=== PATIENT | female | born 1975 | race American Indian/Alaskan Native ===

== ENCOUNTER 2017-06-18 11:30 | Emergency (ER) | payer MEDICAID, OTHER ==
[2017-06-18 12:14] LABS: Basophils % (Auto) 0.5 % (0.0-1.8); Hematocrit 37.7 % (30.3-42.9); Hemoglobin 12.9 gm/dl (10.1-14.3); Mean Corpuscular HGB Conc 34 % (30-34); Mean Corpuscular Hemoglobin 29 pg (28-32); Mean Corpuscular Volume 85 fl (79-97); Platelet Count 286 K/mm3 (140-440); Red Blood Count 4.43 M/mm3 (3.65-5.03); Red Cell Distribution Width 13.1 % (13.2-15.2); White Blood Count 10.9 K/mm3 (4.5-11.0)
[2017-06-18 12:29] LABS: Alanine Aminotransferase 10 units/L (7-56); Albumin 4.2 g/dL (3.9-5); Albumin/Globulin Ratio 1.4 %; Alkaline Phosphatase 77 units/L (35-129); Anion Gap 18 mmol/L; Blood Urea Nitrogen 9 mg/dL (7-17); Calcium 8.3 mg/dL (8.4-10.2); Carbon Dioxide 27 mmol/L (22-30); Chloride 98.8 mmol/L (98-107); Glucose 104 mg/dL (65-100); Lipase 51 units/L (13-60); Potassium 3.3 mmol/L (3.6-5.0); Sodium 140 mmol/L (137-145); Total Protein 7.2 g/dL (6.3-8.2)
[2017-06-18 12:48] LABS: Bacteria,Urine 1+ /HPF (Negative); Bilirubin,Urine NEG (Negative); Blood,Urine SM (Negative); Ketones,Urine NEG (Negative); Leukocyte Esterase,Urine SM (Negative); Mucus,Urine FEW /HPF; Nitrite,Urine NEG (Negative); Protein,Urine <15 mg/dL mg/dL (Negative); Urobilinogen,Urine < 2.0 mg/dL (<2.0)
[2017-06-18] MEDS ORDERED: MOTRIN PO ONE (17:39)
[2017-06-18] MEDS ORDERED: BACTRIM DS ONE (17:44)
[2017-06-18] MEDS ORDERED: BACTRIM DS PO ONE (17:51)
[2017-06-18 18:13] VITALS: BP 164/107
--- NOTE | 2017-06-18 21:15 | Emergency Department Report ---
Entered by SYDNI LEONARD, acting as scribe for LONI GLOVER PA. ED Abdominal Pain HPI - General Chief Complaint: Abdominal Pain Stated Complaint: ABD PAIN Time Seen by Provider: 06/18/17 17:34 Source: patient Mode of arrival: Ambulatory Limitations: No Limitations - History of Present Illness Initial Comments: 41 y/o female with a PMHx of CHF, NIDDM, HTN, hypothyroisim, and high cholesterol presents to the ED c/o left lower abdominal pain that began 2 days ago. Describes pain as sharp and throbbing in quality. Aggravated with movement and alleviated with nothing. Patient states the pain intermittently radiates to her left lower back. Notes her bowel movement have been loose lately. Denies dysuria, urgency, frequency, nausea, vomiting, vaginal discharge, vaginal bleeding, fever, and chills. LMP 06/11/2017. NKDA. MERRILL Complaint: abdominal pain Onset/Timin -: days(s) Location: LLQ Radiation: back (left lower) Migration to: no migration Severity: moderate Severity scale (0 -10): 6 Quality: sharp, other (throbbing) Consistency: constant Improves With: movement Worsens With: nothing Associated Symptoms: denies other symptoms. denies: nausea, vomiting, diarrhea , fever, chills, constipation, dysuria, hematemesis, hematochezia, melena, hematuria, syncope - Related Data LMP Date: 06/11/17 LMP (females 10-50): last week Home Medications Medication Instructions Recorded Confirmed Last Taken Carvedilol [Carvedilol] 6.25 mg PO BID 06/30/16 06/30/16 06/30/16 Furosemide [Furosemide] 40 mg PO DAILY 06/30/16 06/30/16 06/30/16 Gabapentin [Gabapentin] 300 mg PO TID 06/30/16 06/30/16 06/20/16 Levothyroxine [Synthroid] 137 mcg PO QAM 06/30/16 06/30/16 06/30/16 Lisinopril [Lisinopril] 20 mg PO DAILY 06/30/16 06/30/16 06/30/16 Tramadol HCl [traMADol] 50 mg PO Q6H PRN 06/30/16 06/30/16 06/20/16 Previous Rx's Medication Instructions Recorded Last Taken Type Ibuprofen [Motrin] 800 mg PO Q8HR PRN #30 tablet 06/18/17 Unknown Rx Sulfamethoxazole/Trimethoprim 1 each PO BID #14 tablet 06/18/17 Unknown Rx [Bactrim DS TAB] traMADol [Ultram 50 MG tab] 50 mg PO Q6HR PRN #24 tablet 06/18/17 Unknown Rx Allergies Allergy/AdvReac Type Severity Reaction Status Date / Time No Known Allergies Allergy Unverified 06/22/15 09:13 ED Review of Systems Comment: All other systems reviewed and negative Constitutional: denies: chills, diaphoresis, fever, malaise, weakness Eyes: denies: eye pain, eye discharge, vision change ENT: denies: ear pain, throat pain Respiratory: denies: cough, orthopnea, shortness of breath, SOB with exertion, SOB at rest, stridor, wheezing Cardiovascular: denies: chest pain, palpitations, dyspnea on exertion, orthopnea , edema, syncope, paroxysmal nocturnal dyspnea Endocrine: no symptoms reported Gastrointestinal: abdominal pain (LLQ). denies: nausea, vomiting, diarrhea Genitourinary: denies: urgency, dysuria, frequency, hematuria, discharge Musculoskeletal: back pain (radiated left low back pain). denies: joint swelling, arthralgia Skin: denies: rash, lesions Neurological: denies: headache, weakness, numbness, paresthesias Hematological/Lymphatic: denies: easy bleeding, easy bruising ED Past Medical Hx - Past Medical History Previous Medical History?: Yes Hx Hypertension: Yes Hx Congestive Heart Failure: Yes Hx Diabetes: Yes (type II) Additional medical history: hypothyroid, high cholesterol, low potassium - Surgical History Past Surgical History?: Yes Hx Cholecystectomy: Yes Additional Surgical History: C-sections, thyroidectomy - Social History Smoking Status: Never Smoker Substance Use Type: Alcohol - Medications Home Medications: Home Medications Medication Instructions Recorded Confirmed Last Taken Type Carvedilol [Carvedilol] 6.25 mg PO BID 06/30/16 06/30/16 06/30/16 History Furosemide [Furosemide] 40 mg PO DAILY 06/30/16 06/30/16 06/30/16 History Gabapentin [Gabapentin] 300 mg PO TID 06/30/16 06/30/16 06/20/16 History Levothyroxine [Synthroid] 137 mcg PO QAM 06/30/16 06/30/16 06/30/16 History Lisinopril [Lisinopril] 20 mg PO DAILY 06/30/16 06/30/16 06/30/16 History Tramadol HCl [traMADol] 50 mg PO Q6H PRN 06/30/16 06/30/16 06/20/16 History Ibuprofen [Motrin] 800 mg PO Q8HR PRN #30 tablet 06/18/17 Unknown Rx Sulfamethoxazole/Trimethoprim 1 each PO BID #14 tablet 06/18/17 Unknown Rx [Bactrim DS TAB] traMADol [Ultram 50 MG tab] 50 mg PO Q6HR PRN #24 tablet 06/18/17 Unknown Rx ED Physical Exam - General Limitations: No Limitations General appearance: alert, in no apparent distress - Head Head exam: Present: atraumatic, normocephalic - Eye Eye exam: Present: normal appearance, PERRL, EOMI Pupils: Present: normal accommodation - ENT ENT exam: Present: normal exam, mucous membranes moist, normal external ear exam - Neck Neck exam: Present: normal inspection, full ROM. Absent: tenderness, meningismus, lymphadenopathy - Respiratory Respiratory exam: Present: normal lung sounds bilaterally. Absent: respiratory distress, wheezes, rales, rhonchi, stridor, accessory muscle use, decreased breath sounds - Cardiovascular Cardiovascular Exam: Present: regular rate, normal rhythm, normal heart sounds. Absent: systolic murmur, diastolic murmur, rubs, gallop - GI/Abdominal GI/Abdominal exam: Present: soft, tenderness (mild LLQ), normal bowel sounds. Absent: distended, guarding, rebound, rigid, organomegaly, mass, bruit, pulsatile mass - Expanded GI/Abdominal Exam Expanded GI/Abdominal exam: Absent: Ochoa's sign, Rovsing's sign, tenderness at Mcburney 's Point - Extremities Exam Extremities exam: Present: normal inspection, full ROM - Back Exam Back exam: Present: normal inspection, full ROM. Absent: CVA tenderness (R), CVA tenderness (L) - Neurological Exam Neurological exam: Present: alert, oriented X3, normal gait - Psychiatric Psychiatric exam: Present: normal affect, normal mood - Skin Skin exam: Present: warm, dry, intact. Absent: rash ED Course Vital Signs 06/18/17 11:42 Temperature 98.4 F Pulse Rate 82 Respiratory 16 Rate Blood Pressure 144/93 O2 Sat by Pulse 99 Oximetry ED Medical Decision Making - Lab Data Result diagrams: 06/18/17 11:57 06/18/17 11:57 - Medical Decision Making 41 year-old female presents with urinary tract infection ED course: Patient received 1 dose of Bactrim and 1 dose of Motrin. Urinalysis , CBC, BMP, test so ordered Urinalysis positive for bacteria, CBC within normal limits, BMP within normal limits, test negative. Discussed this findings with patient. Discussed the patient antibiotics medication as prescribed. Discussed the patient to follow instructions as given and follow-up with primary care physician as referred. Discuss her symptoms return or worsen to return to the ED Vital signs are normal, patient is in no acute distress ED Disposition Clinical Impression: UTI (urinary tract infection) Qualifiers: Urinary tract infection type: acute cystitis Hematuria presence: without hematuria Qualified Code(s): N30.00 - Acute cystitis without hematuria Disposition: TO HOME OR SELFCARE Is pt being admited?: No Does the pt Need Aspirin: No Condition: Stable Instructions: Abdominal Pain (ED), Urinary Tract Infection in Women (ED) Prescriptions: Ibuprofen [Motrin] 800 mg PO Q8HR PRN #30 tablet PRN Reason: Pain Sulfamethoxazole/Trimethoprim [Bactrim DS TAB] 1 each PO BID #14 tablet traMADol [Ultram 50 MG tab] 50 mg PO Q6HR PRN #24 tablet PRN Reason: Pain Referrals: PRIMARY CAREMD [Primary Care Provider] - 3-5 Days ARMAND VERAS MD [Referring] - 3-5 Days [facility] [Outside] - 3-5 Days [facility] [Outside] - 3-5 Days Forms: Accompanied Note, Work/School Release Form(ED) Time of Disposition: 17:55 This documentation as recorded by the AISHA friedman JASMINE,accurately reflects the service I personally performed and the decisions made by ADALBERTO cross OYINLOLA A, PA.
[2017-06-18] MEDS ORDERED: BACTRIM DS PO SCH (22:00)
== END 2017-06-18 18:13 | disposition home or self-care (01) ==
LOC: ED 11:30
DX: N30.00 Acute cystitis without hematuria (principal); I10 Essential (primary) hypertension; E11.9 Type 2 diabetes mellitus without complications; E78.00 Pure hypercholesterolemia, unspecified
CPT/HCPCS: 36415; 80053; 81001; 81025; 83690; 85025; 99283

== ENCOUNTER 2018-06-08 07:36 | Inpatient (IN) | payer OTHER ==
[2018-06-08] MEDS ORDERED: NACL 0.9% 1000 ML 1,000 ML IV ONE (07:52)
[2018-06-08 08:18] LABS: Basophils # (Auto) 0.1 K/mm3 (0.0-0.1); Basophils % (Auto) 0.4 % (0.0-1.8); Eosinophils # (Auto) 0.2 K/mm3 (0.0-0.4); Eosinophils % (Auto) 1.1 % (0.0-4.3); Hematocrit 32.3 % (30.3-42.9); Hemoglobin 11.3 gm/dl (10.1-14.3); Lymphocytes # (Auto) 2.9 K/mm3 (1.2-5.4); Lymphocytes % (Auto) 21.8 % (13.4-35.0); Mean Corpuscular HGB Conc 35 % (30-34); Mean Corpuscular Hemoglobin 30 pg (28-32); Mean Corpuscular Volume 87 fl (79-97); Monocytes # (Auto) 0.8 K/mm3 (0.0-0.8); Monocytes % (Auto) 6.1 % (0.0-7.3); Platelet Count 260 K/mm3 (140-440); Red Blood Count 3.72 M/mm3 (3.65-5.03); Red Cell Distribution Width 12.9 % (13.2-15.2)
[2018-06-08 08:29] LABS: INR 1.02 (0.87-1.13)
[2018-06-08 08:35] LABS: Alanine Aminotransferase 6 units/L (7-56); Albumin 3.3 g/dL (3.9-5); BUN/Creatinine Ratio 16; Blood Urea Nitrogen 11 mg/dL (7-17); Calcium 7.6 mg/dL (8.4-10.2); Hemolysis Index 12
--- NOTE | 2018-06-08 08:36 | Emergency Department Report ---
ED GI Bleed HPI - General Chief complaint: GI Bleed Stated complaint: ABD PAIN/GI BLEED Time Seen by Provider: 06/08/18 08:14 Source: patient, EMS Mode of arrival: Stretcher Limitations: No Limitations - History of Present Illness Initial comments: 42-year-old female the past medical history CHF with a last known EF of 35% (as per pt), diabetes type 2, hypertension, hypothyroidism, low potassium, elevated cholesterol, previously cholecystectomy and presents to the hospital complaining of rectal bleeding this a.m. Patient had generalized intermittent crampy abdominal pain it is moderate in intensity. She had greater than 6 episodes of grossly bloody stool with clots. Patient felt lightheaded at home and had a syncopal episode in route to hospital. Initial heart rate of 121 as per EMS. Patient received normal saline approximately 500 mL with improvement in heart upon arrival and sbp greater than 100. She denies previous history of GI bleed, hemorrhoids, previous colonoscopy, family or personal history of intestinal cancer, recent travel out of the country in the last 2 months, or aspirin and anticoagulants use. Family brought in a 32 ounce food container that as aprox one quarter filled with blood patient states she had additional output in the toilet and on the floor prior to arrival. [employer]) Patient does have a history of low potassium and takes potassium supplements. She does not know the cause of her hypokalemia but denies history of renal issues/cause and she does take Lasix. - Related Data Home Medications Medication Instructions Recorded Confirmed Last Taken Carvedilol 6.25 mg PO BID 06/30/16 06/30/16 06/30/16 Furosemide 40 mg PO DAILY 06/30/16 06/30/16 06/30/16 Gabapentin 300 mg PO TID 06/30/16 06/30/16 06/20/16 Levothyroxine [Synthroid] 137 mcg PO QAM 06/30/16 06/30/16 06/30/16 Lisinopril 20 mg PO DAILY 06/30/16 06/30/16 06/30/16 Tramadol HCl [traMADol] 50 mg PO Q6H PRN 06/30/16 06/30/16 06/20/16 Previous Rx's Medication Instructions Recorded Last Taken Type Ibuprofen [Motrin] 800 mg PO Q8HR PRN #30 tablet 06/18/17 Unknown Rx Sulfamethoxazole/Trimethoprim 1 each PO BID #14 tablet 06/18/17 Unknown Rx [Bactrim DS TAB] traMADol [Ultram 50 MG tab] 50 mg PO Q6HR PRN #24 tablet 06/18/17 Unknown Rx Allergies Allergy/AdvReac Type Severity Reaction Status Date / Time No Known Allergies Allergy Unverified 06/22/15 09:13 ED Review of Systems ROS: Stated complaint: ABD PAIN/GI BLEED Other details as noted in HPI Comment: All other systems reviewed and negative ED Past Medical Hx - Past Medical History Hx Hypertension: Yes Hx Congestive Heart Failure: Yes Hx Diabetes: Yes (type II) Additional medical history: hypothyroid, high cholesterol, low potassium - Surgical History Hx Cholecystectomy: Yes Additional Surgical History: C-sections, thyroidectomy - Social History Smoking Status: Never Smoker Substance Use Type: None - Medications Home Medications: Home Medications Medication Instructions Recorded Confirmed Last Taken Type Carvedilol 6.25 mg PO BID 06/30/16 06/30/16 06/30/16 History Furosemide 40 mg PO DAILY 06/30/16 06/30/16 06/30/16 History Gabapentin 300 mg PO TID 06/30/16 06/30/16 06/20/16 History Levothyroxine [Synthroid] 137 mcg PO QAM 06/30/16 06/30/16 06/30/16 History Lisinopril 20 mg PO DAILY 06/30/16 06/30/16 06/30/16 History Tramadol HCl [traMADol] 50 mg PO Q6H PRN 06/30/16 06/30/16 06/20/16 History Ibuprofen [Motrin] 800 mg PO Q8HR PRN #30 tablet 06/18/17 Unknown Rx Sulfamethoxazole/Trimethoprim 1 each PO BID #14 tablet 06/18/17 Unknown Rx [Bactrim DS TAB] traMADol [Ultram 50 MG tab] 50 mg PO Q6HR PRN #24 tablet 06/18/17 Unknown Rx ED Physical Exam - General Limitations: No Limitations - Other Other exam information: General: No limitations, patient is alert in no acute distress Head exam: Atraumatic, normocephalic Eyes exam: Normal appearance ENT: Moist mucous membrane, normal oropharynx Neck exam: Normal inspection, full range of motion Respiratory exam: Clear to auscultation bilateral, no wheezes, rales, crackles Cardiovascular: Normal rate and rhythm, normal heart sounds Abdomen: Soft, nondistended, lower and midabdominal tenderness, with normal bowel sounds, no rebound, or guarding Rectal: No external hemorrhoids, guaiac positive grossly bloody stool Extremity: Full range of motion normal inspection no deformity Back: Normal Inspection, full range of motion, no tenderness Neurologic: Alert, oriented x3, cranial nerves intact, no motor or sensory deficit Psychiatric: normal affect, normal mood Skin: Warm, dry, intact ED Course Vital Signs 06/08/18 06/08/18 06/08/18 07:43 07:44 08:00 Temperature 97.9 F Pulse Rate 93 H 91 H Respiratory 17 12 Rate Blood Pressure 121/71 121/71 O2 Sat by Pulse 98 98 99 Oximetry 06/08/18 06/08/18 08:30 09:00 Temperature Pulse Rate 93 H 96 H Respiratory 12 11 L Rate Blood Pressure 109/82 118/87 O2 Sat by Pulse 99 97 Oximetry - Consultations Consultation #1: 06/08/18 08:50 case d/w Jumana Menchaca, gi, request ct a/p IV contrast to r/o ischemic colitis, will consult. 06/08/18 08:53 ED Medical Decision Making - Lab Data Result diagrams: 06/08/18 07:54 06/08/18 07:54 Lab Results 06/08/18 06/08/18 06/08/18 Range/Units 07:54 07:54 07:54 WBC 13.5 H (4.5-11.0) K/mm3 RBC 3.72 (3.65-5.03) M/mm3 Hgb 11.3 (10.1-14.3) gm/dl Hct 32.3 (30.3-42.9) % MCV 87 (79-97) fl MCH 30 (28-32) pg MCHC 35 H (30-34) % RDW 12.9 L (13.2-15.2) % Plt Count 260 (140-440) K/mm3 Lymph % (Auto) 21.8 (13.4-35.0) % [place] % (Auto) 6.1 (0.0-7.3) % Eos % (Auto) 1.1 (0.0-4.3) % Baso % (Auto) 0.4 (0.0-1.8) % Lymph # 2.9 (1.2-5.4) K/mm3 [place] # 0.8 (0.0-0.8) K/mm3 Eos # 0.2 (0.0-0.4) K/mm3 Baso # 0.1 (0.0-0.1) K/mm3 Seg Neutrophils % 70.6 H (40.0-70.0) % Seg Neutrophils # 9.5 H (1.8-7.7) K/mm3 PT 13.9 (12.2-14.9) Sec. INR 1.02 (0.87-1.13) Sodium 139 (137-145) mmol/L Potassium 2.9 L* (3.6-5.0) mmol/L Chloride 100.9 (98-107) mmol/L Carbon Dioxide 25 (22-30) mmol/L Anion Gap 16 mmol/L BUN 11 (7-17) mg/dL Creatinine 0.7 (0.7-1.2) mg/dL Estimated GFR > 60 ml/min BUN/Creatinine Ratio 16 % Glucose 169 H (65-100) mg/dL Calcium 7.6 L (8.4-10.2) mg/dL Total Bilirubin 0.30 (0.1-1.2) mg/dL AST 11 (5-40) units/L ALT 6 L (7-56) units/L Alkaline Phosphatase 63 (35-129) units/L Total Protein 5.7 L (6.3-8.2) g/dL Albumin 3.3 L (3.9-5) g/dL Albumin/Globulin Ratio 1.4 % Lipase (13-60) units/L HCG, Qual (Negative) Blood Type 06/08/18 06/08/18 06/08/18 Range/Units 07:54 07:54 07:54 WBC (4.5-11.0) K/mm3 RBC (3.65-5.03) M/mm3 Hgb (10.1-14.3) gm/dl Hct (30.3-42.9) % MCV (79-97) fl MCH (28-32) pg MCHC (30-34) % RDW (13.2-15.2) % Plt Count (140-440) K/mm3 Lymph % (Auto) (13.4-35.0) % [place] % (Auto) (0.0-7.3) % Eos % (Auto) (0.0-4.3) % Baso % (Auto) (0.0-1.8) % Lymph # (1.2-5.4) K/mm3 [place] # (0.0-0.8) K/mm3 Eos # (0.0-0.4) K/mm3 Baso # (0.0-0.1) K/mm3 Seg Neutrophils % (40.0-70.0) % Seg Neutrophils # (1.8-7.7) K/mm3 PT (12.2-14.9) Sec. INR (0.87-1.13) Sodium (137-145) mmol/L Potassium (3.6-5.0) mmol/L Chloride (98-107) mmol/L Carbon Dioxide (22-30) mmol/L Anion Gap mmol/L BUN (7-17) mg/dL Creatinine (0.7-1.2) mg/dL Estimated GFR ml/min BUN/Creatinine Ratio % Glucose (65-100) mg/dL Calcium (8.4-10.2) mg/dL Total Bilirubin (0.1-1.2) mg/dL AST (5-40) units/L ALT (7-56) units/L Alkaline Phosphatase (35-129) units/L Total Protein (6.3-8.2) g/dL Albumin (3.9-5) g/dL Albumin/Globulin Ratio % Lipase 70 H (13-60) units/L HCG, Qual Negative (Negative) Blood Type B POSITIVE - EKG Data -: EKG Interpreted by Me EKG shows normal: sinus rhythm, axis (qrs 25), QRS complexes (qrsd 98), ST-T waves (nospecific t abnl, no stemi) Rate: normal (91) - EKG Data When compared to previous EKG there are: previous EKG unavailable - Medical Decision Making rectal bleeding no external lesions h/h, bp, hr stable in ed type and screen gi consult ct pending at dispo NPO hypokalemia mag ordered kcl 20mq IV IVF with caution due to chf hx. hospitalist informed for admission - Differential Diagnosis diverticulosis, ischemic colitis, cancer, hemorrhoids Critical Care Time: No Critical care attestation.: If time is entered above; I have spent that time in minutes in the direct care of this critically ill patient, excluding procedure time. ED Disposition Clinical Impression: Rectal bleeding, Episode of syncope, Hypokalemia, Chronic CHF, Hypomagnesemia Disposition: OP ADMIT IP TO THIS HOSP Is pt being admited?: Yes Condition: Stable Time of Disposition: 08:42 (Dr Chapman/hosp)
[2018-06-08] MEDS ORDERED: ZOFRAN ONE (09:05)
[2018-06-08] MEDS: KCL 10MEQ/100ML 10 MEQ/100 ML BAG IV SCH ×2 (09:12→20:12)
[2018-06-08] MEDS ORDERED: MAGNESIUM SULFATE 2GM/50ML 2 GM/50 ML BAG IV ONE (09:15)
--- NOTE | 2018-06-08 09:26 | History and Physical Report ---
History of Present Illness Date of examination: 06/08/18 Date of admission: 06/08/18 Chief complaint: Bright red blood per rectum History of present illness: Patient is 42 yo with CHF, hypertension, hyperlipidemia. She presented with bright red blood per rectum with blood clots, several episodes about 6. She also complained of crampy lower abdominal pain, 6/10. She denies vomiting. In addition, she felt dizzy . Paramedicas were called and she was brought to ED. She had episode of syncope en route to hospital. In ED, hemoglobin 11.3, pulse 93. GI Physician consulted and he recommends CT Abd. Will admit for further management. Past History Past Medical History: heart failure, hypertension, hyperlipidemia Past Surgical History: cholecystectomy, , thyroidectomy Social history: lives with family, full code, other (Alcohol occasionally). denies: smoking Medications and Allergies Allergies Allergy/AdvReac Type Severity Reaction Status Date / Time No Known Allergies Allergy Unverified 06/22/15 09:13 Home Medications Medication Instructions Recorded Confirmed Last Taken Type Carvedilol 6.25 mg PO BID 06/30/16 06/08/18 06/07/18 History Furosemide 40 mg PO DAILY 06/30/16 06/08/18 06/07/18 History Lisinopril 20 mg PO DAILY 06/30/16 06/08/18 06/07/18 History Levothyroxine Sodium [Synthroid] 137 mcg PO DAILY 06/08/18 06/08/18 06/07/18 History Potassium Chloride [K-Dur] 10 meq PO DAILY 06/08/18 06/08/18 06/07/18 History Pravastatin [Pravachol] 40 mg PO QHS 06/08/18 06/08/18 06/07/18 History Active Meds: Active Medications Potassium Chloride (Kcl 10meq/100ml) 10 meq in 100 mls @ 100 mls/hr IV Q1H FERNANDEZ Stop: 06/08/18 10:59 Last Admin: 06/08/18 09:12 Dose: 100 mls/hr Magnesium Sulfate 2 gm/ Sodium (Chloride) 54 mls @ 25 mls/hr IV ONCE ONE Stop: 06/08/18 12:09 Review of Systems All systems: negative Exam - Physical Exam Narrative exam: Constitutional; In mild distress from pain iv site of K infussion HEENT: Atraumatic, normocephalic Neck: supple, no lymphadenopathy, JVD Lungs: Clear to auscultation, bilaterally, no wheeze, no crackles CVS; S1-S2 regular, no murmurs, rubs or gallop, Abdomen; soft, non-tender, non distended,bowel sounds are normal, Musculoskeletal; No edema, clubbing , or cyanosis [employer]: Awake, alert,oriented x3, no focal neurological signs - Constitutional Vitals: Temp Pulse Resp BP Pulse Ox 97.9 F 96 H 11 L 118/87 97 06/08/18 07:43 06/08/18 09:00 06/08/18 09:00 06/08/18 09:00 06/08/18 09:00 Results - Labs CBC & Chem 7: 06/09/18 00:49 06/09/18 05:27 Labs: Abnormal lab results 06/08/18 06/08/18 06/08/18 Range/Units 07:54 07:54 07:54 WBC 13.5 H (4.5-11.0) K/mm3 MCHC 35 H (30-34) % RDW 12.9 L (13.2-15.2) % Seg Neutrophils % 70.6 H (40.0-70.0) % Seg Neutrophils # 9.5 H (1.8-7.7) K/mm3 Potassium 2.9 L* (3.6-5.0) mmol/L Glucose 169 H (65-100) mg/dL Calcium 7.6 L (8.4-10.2) mg/dL Magnesium (1.7-2.3) mg/dL ALT 6 L (7-56) units/L Total Protein 5.7 L (6.3-8.2) g/dL Albumin 3.3 L (3.9-5) g/dL Lipase 70 H (13-60) units/L 06/08/18 Range/Units 08:11 WBC (4.5-11.0) K/mm3 MCHC (30-34) % RDW (13.2-15.2) % Seg Neutrophils % (40.0-70.0) % Seg Neutrophils # (1.8-7.7) K/mm3 Potassium (3.6-5.0) mmol/L Glucose (65-100) mg/dL Calcium (8.4-10.2) mg/dL Magnesium 1.60 L (1.7-2.3) mg/dL ALT (7-56) units/L Total Protein (6.3-8.2) g/dL Albumin (3.9-5) g/dL Lipase (13-60) units/L Assessment and Plan Acute lower GI bleed Presents with bright red blood per rectum Hgb 11.3 CT Abd ordered H/H Q 6h Hypokalemia. Give 20meq Potassium iv infusion Repeat in am Hypomagnesemia. Give 2g K-rider Chronic systolic CHF, Goes to [place]. EKG some abnormalities. Consult cardiology Hypertension. Monitor BP Hyperlipidemia Full code status
[2018-06-08] MEDS ORDERED: ZOFRAN IV PRN (09:29)
[2018-06-08] MEDS ORDERED: SODIUM CHLORIDE FLUSH SYRINGE 10 ML IV PRN (09:29)
[2018-06-08] MEDS ORDERED: TYLENOL PO PRN (09:29)
[2018-06-08 09:58] LABS: Creatine Kinase MB < 1.0 ng/mL (0.0-4.0)
[2018-06-08] MEDS ORDERED: MAGNESIUM SULFATE 2 GM in NACL 0.9% 50 ML IV ONE (10:00)
--- NOTE | 2018-06-08 10:01 | Gastroenterology Consultation ---
<NATHALY NUÑEZ - Last Filed: 06/08/18 10:02> History of Present Illness - Reason for Consult Consult date: 06/08/18 rectal bleeding Requesting physician: RAJIV MCCLELLAND - History of Present Illness Patient is a 42 y/o female with PMH of CHF, HTN, DM, HLD, and hypothyroidism who presented to ED with rectal bleeding with associated lower abd pain described as cramping and a syncopal episode. Cardiology has been consulted. CT abd pending. This morning patient was resting on stretcher w/o acute distress. Reports BMs x 5 this am with bright red blood. No melena or hematemesis. Admits to mild chest discomfort and dizziness but denies fever, SOB, wt loss, N/V, dysphagia, diarrhea, or constipation. No recent abx therapy, travel, or ill contacts. Not on ASA or anticoagulants at home. No prior episode of GI bleeding or hx of PUD. No hx of liver disease. No previous endoscopic evaluation with EGD /colonoscopy. No Fhx of GI cancers. Past History Past Medical History: heart failure, hypertension, hyperlipidemia, hypothyroidism Past Surgical History: cholecystectomy, , thyroidectomy Social history: lives with family, full code, other (Alcohol occasionally). denies: smoking Medications and Allergies Allergies Allergy/AdvReac Type Severity Reaction Status Date / Time No Known Allergies Allergy Unverified 06/22/15 09:13 Home Medications Medication Instructions Recorded Confirmed Last Taken Type Carvedilol 6.25 mg PO BID 06/30/16 06/08/18 06/07/18 History Furosemide 40 mg PO DAILY 06/30/16 06/08/18 06/07/18 History Lisinopril 20 mg PO DAILY 06/30/16 06/08/18 06/07/18 History Levothyroxine Sodium [Synthroid] 137 mcg PO DAILY 06/08/18 06/08/18 06/07/18 History Potassium Chloride [K-Dur] 10 meq PO DAILY 06/08/18 06/08/18 06/07/18 History Pravastatin [Pravachol] 40 mg PO QHS 06/08/18 06/08/18 06/07/18 History Active Meds: Active Medications Acetaminophen (Tylenol) 650 mg PO Q4H PRN PRN Reason: Pain MILD(1-3)/Fever >100.5/CASTILLO Potassium Chloride (Kcl 10meq/100ml) 10 meq in 100 mls @ 100 mls/hr IV Q1H FERNANDEZ Stop: 06/08/18 10:59 Last Admin: 06/08/18 09:12 Dose: 100 mls/hr Magnesium Sulfate 2 gm/ Sodium (Chloride) 54 mls @ 25 mls/hr IV ONCE ONE Stop: 06/08/18 12:09 Last Admin: 06/08/18 09:43 Dose: 25 mls/hr Morphine Sulfate (Morphine) 2 mg IV Q4H PRN PRN Reason: Pain, Moderate (4-6) Ondansetron HCl (Zofran) 4 mg IV Q8H PRN PRN Reason: Nausea And Vomiting Sodium Chloride (Sodium Chloride Flush Syringe 10 Ml) 10 ml IV BID FERNANDEZ Sodium Chloride (Sodium Chloride Flush Syringe 10 Ml) 10 ml IV PRN PRN PRN Reason: LINE FLUSH Review of Systems - Review of Systems All systems: negative Gastrointestinal: abdominal pain, hematochezia Exam - Constitutional Vital Signs: Temp Pulse Resp BP Pulse Ox 97.9 F 87 17 122/77 98 06/08/18 07:43 06/08/18 09:54 06/08/18 09:54 06/08/18 09:46 06/08/18 09:54 General appearance: no acute distress - EENT Eyes: PERRL, EOM intact ENT: hearing intact - Respiratory Respiratory: bilateral: CTA - Cardiovascular Rhythm: regular Heart Sounds: Present: S1 & S2 - Gastrointestinal General gastrointestinal: Present: soft, non-tender, non-distended, normal bowel sounds - Neurologic Neurological: alert and oriented x3 - Labs CBC & Chem 7: 06/08/18 07:54 06/08/18 07:54 Lab Results: Laboratory Results - last 24 hr 06/08/18 06/08/18 06/08/18 07:54 07:54 07:54 WBC 13.5 H RBC 3.72 Hgb 11.3 Hct 32.3 MCV 87 MCH 30 MCHC 35 H RDW 12.9 L Plt Count 260 Lymph % (Auto) 21.8 [place] % (Auto) 6.1 Eos % (Auto) 1.1 Baso % (Auto) 0.4 Lymph # 2.9 [place] # 0.8 Eos # 0.2 Baso # 0.1 Seg Neutrophils % 70.6 H Seg Neutrophils # 9.5 H PT 13.9 INR 1.02 Sodium 139 Potassium 2.9 L* Chloride 100.9 Carbon Dioxide 25 Anion Gap 16 BUN 11 Creatinine 0.7 Estimated GFR > 60 BUN/Creatinine Ratio 16 Glucose 169 H Calcium 7.6 L Magnesium Total Bilirubin 0.30 AST 11 ALT 6 L Alkaline Phosphatase 63 Total Creatine Kinase CK-MB (CK-2) CK-MB (CK-2) Rel Index Troponin T Total Protein 5.7 L Albumin 3.3 L Albumin/Globulin Ratio 1.4 Lipase HCG, Qual Blood Type Antibody Screen 06/08/18 06/08/18 06/08/18 07:54 07:54 07:54 WBC RBC Hgb Hct MCV MCH MCHC RDW Plt Count Lymph % (Auto) [place] % (Auto) Eos % (Auto) Baso % (Auto) Lymph # [place] # Eos # Baso # Seg Neutrophils % Seg Neutrophils # PT INR Sodium Potassium Chloride Carbon Dioxide Anion Gap BUN Creatinine Estimated GFR BUN/Creatinine Ratio Glucose Calcium Magnesium Total Bilirubin AST ALT Alkaline Phosphatase Total Creatine Kinase CK-MB (CK-2) CK-MB (CK-2) Rel Index Troponin T Total Protein Albumin Albumin/Globulin Ratio Lipase 70 H HCG, Qual Negative Blood Type B POSITIVE Antibody Screen Negative 06/08/18 06/08/18 08:11 08:11 WBC RBC Hgb Hct MCV MCH MCHC RDW Plt Count Lymph % (Auto) [place] % (Auto) Eos % (Auto) Baso % (Auto) Lymph # [place] # Eos # Baso # Seg Neutrophils % Seg Neutrophils # PT INR Sodium Potassium Chloride Carbon Dioxide Anion Gap BUN Creatinine Estimated GFR BUN/Creatinine Ratio Glucose Calcium Magnesium 1.60 L Total Bilirubin AST ALT Alkaline Phosphatase Total Creatine Kinase 107 CK-MB (CK-2) < 1.0 CK-MB (CK-2) Rel Index 0.9 Troponin T 0.038 H Total Protein Albumin Albumin/Globulin Ratio Lipase HCG, Qual Blood Type Antibody Screen Assessment and Plan 1.hematochezia 2.lower abd pain -afebrile -WBC 13.5 -INR 1.02 -H/H 11.3/32.3 -continue to monitor H/H and transfuse as needed -hold blood thinning medications -BMs x 5 this am with bright red blood -currently HD stable -etiology unclear -Abd CT pending to evaluate for lower GI pathology -will consider colonoscopy based on progress/CT finding -continue supportive care -electrolyte management per primary team -further recommendations to follow <FLOR KOCH - Last Filed: 06/08/18 16:43> Medications and Allergies Active Meds: Active Medications Acetaminophen (Tylenol) 650 mg PO Q4H PRN PRN Reason: Pain MILD(1-3)/Fever >100.5/CASTILLO Carvedilol (Coreg) 6.25 mg PO BID FERNANDEZ Furosemide (Lasix) 40 mg PO DAILY FERNANDEZ Levofloxacin/Dextrose (Levaquin 750mg/150ml) 750 mg in 150 mls @ 100 mls/hr IV Q24HR FERNANDEZ; Protocol Metronidazole (Flagyl 500 Mg/100 Ml) 500 mg in 100 mls @ 100 mls/hr IV Q8HR FERNANDEZ ; Protocol Lisinopril (Zestril) 20 mg PO DAILY FERNANDEZ Morphine Sulfate (Morphine) 2 mg IV Q4H PRN PRN Reason: Pain, Moderate (4-6) Last Admin: 06/08/18 12:43 Dose: 2 mg Ondansetron HCl (Zofran) 4 mg IV Q8H PRN PRN Reason: Nausea And Vomiting Last Admin: 06/08/18 12:43 Dose: 4 mg Potassium Chloride (K-Dur) 10 meq PO DAILY [facility] Pravastatin Sodium (Pravachol) 40 mg PO QHS [facility] Sodium Chloride (Sodium Chloride Flush Syringe 10 Ml) 10 ml IV BID [facility] Sodium Chloride (Sodium Chloride Flush Syringe 10 Ml) 10 ml IV PRN PRN PRN Reason: LINE FLUSH Exam - Constitutional Vital Signs: Temp Pulse Resp BP Pulse Ox 98.6 F 93 H 20 124/76 100 06/08/18 11:19 06/08/18 11:19 06/08/18 11:19 06/08/18 11:19 06/08/18 11:19 - Labs CBC & Chem 7: 06/08/18 15:11 06/08/18 07:54 Lab Results: Laboratory Results - last 24 hr 06/08/18 06/08/18 06/08/18 07:54 07:54 07:54 WBC 13.5 H RBC 3.72 Hgb 11.3 Hct 32.3 MCV 87 MCH 30 MCHC 35 H RDW 12.9 L Plt Count 260 Lymph % (Auto) 21.8 [place] % (Auto) 6.1 Eos % (Auto) 1.1 Baso % (Auto) 0.4 Lymph # 2.9 [place] # 0.8 Eos # 0.2 Baso # 0.1 Seg Neutrophils % 70.6 H Seg Neutrophils # 9.5 H PT 13.9 INR 1.02 Sodium 139 Potassium 2.9 L* Chloride 100.9 Carbon Dioxide 25 Anion Gap 16 BUN 11 Creatinine 0.7 Estimated GFR > 60 BUN/Creatinine Ratio 16 Glucose 169 H Calcium 7.6 L Magnesium Total Bilirubin 0.30 AST 11 ALT 6 L Alkaline Phosphatase 63 Total Creatine Kinase CK-MB (CK-2) CK-MB (CK-2) Rel Index Troponin T Total Protein 5.7 L Albumin 3.3 L Albumin/Globulin Ratio 1.4 Triglycerides Cholesterol LDL Cholesterol Direct HDL Cholesterol Cholesterol/HDL Ratio Lipase HCG, Qual Blood Type Antibody Screen 06/08/18 06/08/18 06/08/18 07:54 07:54 07:54 WBC RBC Hgb Hct MCV MCH MCHC RDW Plt Count Lymph % (Auto) [place] % (Auto) Eos % (Auto) Baso % (Auto) Lymph # [place] # Eos # Baso # Seg Neutrophils % Seg Neutrophils # PT INR Sodium Potassium Chloride Carbon Dioxide Anion Gap BUN Creatinine Estimated GFR BUN/Creatinine Ratio Glucose Calcium Magnesium Total Bilirubin AST ALT Alkaline Phosphatase Total Creatine Kinase CK-MB (CK-2) CK-MB (CK-2) Rel Index Troponin T Total Protein Albumin Albumin/Globulin Ratio Triglycerides Cholesterol LDL Cholesterol Direct HDL Cholesterol Cholesterol/HDL Ratio Lipase 70 H HCG, Qual Negative Blood Type B POSITIVE Antibody Screen Negative 06/08/18 06/08/18 06/08/18 08:11 08:11 15:11 WBC RBC Hgb 10.8 Hct 31.6 MCV MCH MCHC RDW Plt Count Lymph % (Auto) [place] % (Auto) Eos % (Auto) Baso % (Auto) Lymph # [place] # Eos # Baso # Seg Neutrophils % Seg Neutrophils # PT INR Sodium Potassium Chloride Carbon Dioxide Anion Gap BUN Creatinine Estimated GFR BUN/Creatinine Ratio Glucose Calcium Magnesium 1.60 L Total Bilirubin AST ALT Alkaline Phosphatase Total Creatine Kinase 107 CK-MB (CK-2) < 1.0 CK-MB (CK-2) Rel Index 0.9 Troponin T < 0.010 Total Protein Albumin Albumin/Globulin Ratio Triglycerides 107 Cholesterol 109 LDL Cholesterol Direct 65 HDL Cholesterol 34 L Cholesterol/HDL Ratio 3.20 Lipase HCG, Qual Blood Type Antibody Screen Assessment and Plan Pt seen and examined. Agree with note by Nathaly Nuñez. Pt presenting with lower abdominal cramping followed by multiple hematochezia episodes. CT can showed acute cecal diverticulitis. On abx for which she will need to complete treatment. unusual location and presentation for diverticulitis, and should have colonoscopy in 6-8 weeks to r/o occult pathology/malignancy which was discussed with pt. she denies nsaid's. no known family h/o colon cancer.
--- NOTE | 2018-06-08 10:02 | Cat Scan Report ---
CT ABDOMEN PELVIS WITH CONTRAST: HISTORY: Abdominal pain, GI bleed. COMPARISON: none. TECHNIQUE: Helical CT in 1.25mm intervals following IV contrast. Sagittal and coronal reconstructions. FINDINGS: Lung bases: Normal. Liver: Normal. Biliary system: Cholecystectomy. No biliary dilatation. Pancreas: Normal. Spleen: Normal. Kidneys/ureters/bladder: Normal. Adrenal glands: Normal. Aorta: Normal. Intestines: There are a few cecal diverticula which appear inflamed with trace fluid in the right paracolic gutter. No free air or abscess. The remaining bowel loops are unremarkable given no oral contrast was administered. Appendix: Normal. Pelvic viscera: A 2.3 cm simple cyst is identified in the left ovary. The uterus and right adnexa are unremarkable. Ascites: None. Adenopathy: None. Musculoskeletal: Normal. IMPRESSION: Acute cecal diverticulitis. No evidence for free air or abscess. 2.3 cm left ovarian cyst.
[2018-06-08 10:12] LABS: HDL Cholesterol 34 mg/dL (40-59); LDL Cholesterol,Direct 65 mg/dL (50-130)
--- NOTE | 2018-06-08 12:03 | Consultation ---
History of Present Illness Consult date: 06/08/18 Requesting physician: CHASTITY OSHEA Consult reason: pre op evaluation History of present illness: The patient is 42 yo female with a past medical history significant for cardiomyopathy (last known EF 30-35%), HF, HTN, DM, HLP, hypothyroidism. She is regularly followed by Dr. Haresh Vicente in [place]. She presented with bright red blood per rectum with blood clots associated with crampy lower abdominal pain since this morning. She reports BMs x 5 this am with bright red blood. She also c/o dizziness and reportedly had a syncopal episode in ambulance en route to hospital. She denies any chest pain, SOB, palpitations, n/v or diaphoresis. 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 Past History Past Medical History: diabetes, heart failure, hypertension, hyperlipidemia, hypothyroidism Past Surgical History: cholecystectomy, , thyroidectomy Social history: lives with family, full code, other (Alcohol occasionally). denies: smoking Medications and Allergies Allergies Allergy/AdvReac Type Severity Reaction Status Date / Time No Known Allergies Allergy Unverified 06/22/15 09:13 Home Medications Medication Instructions Recorded Confirmed Last Taken Type Carvedilol 6.25 mg PO BID 06/30/16 06/08/18 06/07/18 History Furosemide 40 mg PO DAILY 06/30/16 06/08/18 06/07/18 History Lisinopril 20 mg PO DAILY 06/30/16 06/08/18 06/07/18 History Levothyroxine Sodium [Synthroid] 137 mcg PO DAILY 06/08/18 06/08/18 06/07/18 History Potassium Chloride [K-Dur] 10 meq PO DAILY 06/08/18 06/08/18 06/07/18 History Pravastatin [Pravachol] 40 mg PO QHS 06/08/18 06/08/18 06/07/18 History Active Meds: Active Medications Acetaminophen (Tylenol) 650 mg PO Q4H PRN PRN Reason: Pain MILD(1-3)/Fever >100.5/CASTILLO Magnesium Sulfate 2 gm/ Sodium (Chloride) 54 mls @ 25 mls/hr IV ONCE ONE Stop: 06/08/18 12:09 Last Admin: 06/08/18 09:43 Dose: 25 mls/hr Morphine Sulfate (Morphine) 2 mg IV Q4H PRN PRN Reason: Pain, Moderate (4-6) Ondansetron HCl (Zofran) 4 mg IV Q8H PRN PRN Reason: Nausea And Vomiting Sodium Chloride (Sodium Chloride Flush Syringe 10 Ml) 10 ml IV BID FERNANDEZ Sodium Chloride (Sodium Chloride Flush Syringe 10 Ml) 10 ml IV PRN PRN PRN Reason: LINE FLUSH Review of Systems Constitutional: no weight loss, no weight gain, no fever, no chills, no sweats Ears, nose, mouth and throat: no ear pain, no nose pain, no sinus pressure, no sinus pain Cardiovascular: lightheadedness, no chest pain, no orthopnea, no palpitations, no rapid/irregular heart beat, no edema, no syncope, no shortness of breath, no dyspnea on exertion Respiratory: no cough, no shortness of breath, no dyspnea on exertion, no congestion, no wheezing, no pain on inspiration Gastrointestinal: abdominal pain, BRBPR, no nausea, no vomiting, no diarrhea, no constipation Genitourinary Female: no pelvic pain, no flank pain, no dysuria, no urinary frequency, no urgency Musculoskeletal: no neck stiffness, no neck pain, no shooting arm pain, no arm numbness/tingling, no low back pain, no shooting leg pain, no leg numbness/ tingling, no redness of joints Integumentary: no rash, no pruritis, no redness, no sores, no wounds Neurological: no head injury, no paralysis, no weakness, no parathesias, no numbness, no tingling, no seizures, no syncope Psychiatric: no anxiety Endocrine: no cold intolerance, no heat intolerance Hematologic/Lymphatic: no easy bruising, no easy bleeding Allergic/Immunologic: no urticaria, no wheezing Physical Examination Vital Signs Temp Pulse Resp BP Pulse Ox 97.9 F 93 H 17 121/71 98 06/08/18 07:43 06/08/18 07:43 06/08/18 07:43 06/08/18 07:43 06/08/18 07:43 General appearance: no acute distress HEENT: Positive: PERRL, Normocephaly, Mucus Membranes Moist Neck: Positive: neck supple, trachea midline Cardiac: Positive: Reg Rate and Rhythm, S1/S2 Lungs: Positive: clear to auscultation Neuro: Positive: Grossly Intact, Cranial Nerve 2-12 Intact Abdomen: Positive: Soft. Negative: Tender Skin: Positive: Clear. Negative: Rash, Wound Musculoskeletal: No Fluid Collection, No Pain, Normal Range of Motion Extremities: Absent: edema Results 06/08/18 07:54 06/08/18 07:54 Cardiac Enzymes 06/08/18 06/08/18 Range/Units 07:54 08:11 AST 11 (5-40) units/L CK-MB (CK-2) < 1.0 (0.0-4.0) ng/mL Coagulation 06/08/18 Range/Units 07:54 PT 13.9 (12.2-14.9) Sec. INR 1.02 (0.87-1.13) Lipids 06/08/18 Range/Units 08:11 Triglycerides 107 (2-149) mg/dL Cholesterol 109 (50-199) mg/dL HDL Cholesterol 34 L (40-59) mg/dL Cholesterol/HDL Ratio 3.20 % CBC 06/08/18 Range/Units 07:54 WBC 13.5 H (4.5-11.0) K/mm3 RBC 3.72 (3.65-5.03) M/mm3 Hgb 11.3 (10.1-14.3) gm/dl Hct 32.3 (30.3-42.9) % Plt Count 260 (140-440) K/mm3 Lymph # 2.9 (1.2-5.4) K/mm3 [place] # 0.8 (0.0-0.8) K/mm3 Eos # 0.2 (0.0-0.4) K/mm3 Baso # 0.1 (0.0-0.1) K/mm3 Comprehensive Metabolic Panel 06/08/18 Range/Units 07:54 Sodium 139 (137-145) mmol/L Potassium 2.9 L* (3.6-5.0) mmol/L Chloride 100.9 (98-107) mmol/L Carbon Dioxide 25 (22-30) mmol/L BUN 11 (7-17) mg/dL Creatinine 0.7 (0.7-1.2) mg/dL Glucose 169 H (65-100) mg/dL Calcium 7.6 L (8.4-10.2) mg/dL AST 11 (5-40) units/L ALT 6 L (7-56) units/L Alkaline Phosphatase 63 (35-129) units/L Total Protein 5.7 L (6.3-8.2) g/dL Albumin 3.3 L (3.9-5) g/dL - Imaging and Cardiology Echo: pending EKG: report reviewed, image reviewed EKG interpretations - Telemetry EKG Rhythm: Sinus Rhythm - EKG Sinus rhythms and dysrhythmias: sinus rhythm Chamber hypertrophy or enlargement: left ventricular hypertro Repolarization changes or abnormalities: nonspecific abnormality, ST segment, and/or T wave Assessment and Plan Abdomen CT shows acute cecal diverticulitis. Pt may require endoscopy in the near future. GI w/u in progress. Obtain echo. Currently stable cardiac status. No current clinical evidence of acutely decompensated HF or ACS. Resume home cardiac regimen. Hold ASA in setting of GIB. Assessment and plan reviewed with pt at bedside. The patient has been seen in conjunction with Dr. Maribell Sanchez who agrees with the assessment and plan of care. - Patient Problems (1) GI bleed Current Visit: Yes Status: Acute (2) Abdominal pain Current Visit: Yes Status: Acute (3) Syncope Current Visit: Yes Status: Acute (4) History of cardiomyopathy Current Visit: Yes Status: Chronic (5) HTN (hypertension) Current Visit: Yes Status: Chronic (6) Diabetes Current Visit: Yes Status: Chronic (7) Hyperlipidemia Current Visit: Yes Status: Chronic (8) Hypokalemia Current Visit: Yes Status: Acute (9) Hypomagnesemia Current Visit: Yes Status: Acute (10) Hypocalcemia Current Visit: Yes Status: Acute (11) Leukocytosis Current Visit: Yes Status: Acute (12) History of hypothyroidism Current Visit: Yes Status: Chronic
[2018-06-08] MEDS: MORPHINE IV PRN ×3 (12:43→22:27)
[2018-06-08] MEDS: FLAGYL 500 MG/100 ML 500 MG/100 ML BAG IV SCH ×2 (15:22→21:26)
[2018-06-08 15:54] LABS: Hematocrit 31.6 % (30.3-42.9); Hemoglobin 10.8 gm/dl (10.1-14.3)
[2018-06-08] MEDS: LEVAQUIN 750MG/150ML 750 MG/150 ML BAG IV SCH (20:21)
[2018-06-08] MEDS: COREG PO SCH (21:24)
[2018-06-08] MEDS: PRAVACHOL PO SCH (21:24)
[2018-06-09 01:51] LABS: Basophils % (Auto) 0.2 % (0.0-1.8); Eosinophils # (Auto) 0.1 K/mm3 (0.0-0.4); Eosinophils % (Auto) 0.7 % (0.0-4.3); Hematocrit 29.6 % (30.3-42.9); Hemoglobin 10.2 gm/dl (10.1-14.3); Lymphocytes # (Auto) 3.6 K/mm3 (1.2-5.4); Lymphocytes % (Auto) 27.4 % (13.4-35.0); Mean Corpuscular HGB Conc 35 % (30-34); Mean Corpuscular Hemoglobin 30 pg (28-32); Mean Corpuscular Volume 87 fl (79-97); Monocytes # (Auto) 0.7 K/mm3 (0.0-0.8); Monocytes % (Auto) 5.6 % (0.0-7.3); Platelet Count 223 K/mm3 (140-440); Red Blood Count 3.39 M/mm3 (3.65-5.03); Red Cell Distribution Width 12.9 % (13.2-15.2)
[2018-06-09] MEDS: FLAGYL 500 MG/100 ML 500 MG/100 ML BAG IV SCH ×3 (05:50→22:22)
[2018-06-09 06:43] LABS: BUN/Creatinine Ratio 13; Blood Urea Nitrogen 9 mg/dL (7-17); Hemolysis Index 0
[2018-06-09] MEDS: SODIUM CHLORIDE FLUSH SYRINGE 10 ML IV SCH ×2 (09:40→22:23)
[2018-06-09] MEDS: LEVAQUIN 750MG/150ML 750 MG/150 ML BAG IV SCH (09:40)
[2018-06-09] MEDS: LASIX PO SCH (09:52)
[2018-06-09] MEDS: ZESTRIL PO SCH (09:52)
[2018-06-09] MEDS: COREG PO SCH ×2 (09:52→22:23)
[2018-06-09] MEDS ORDERED: K-DUR PO SCH (10:00)
--- NOTE | 2018-06-09 10:35 | Progress Note ---
Assessment and Plan Assessment and plan: Acute lower GI bleed Presented with bright red blood per rectum Hgb 10.2 CT Abd showerd cecal diverticulitus H/H Q 6h Acute diverticulitis. Patient is started on Levaquin and Flagyl yesterday Hypokalemia. Improved. Will give orally when she starts a diet. she declined iv Potassium because of pain at iv site. Hypomagnesemia. Now resolved after giving 2g K-rider Chronic systolic CHF, Goes to [place]. EKG some abnormalities. Consulted cardiology Hypertension. Monitor BP Hyperlipidemia Full code status History Interval history: Feels better no more blood per rectum Hospitalist Physical - Physical exam Narrative exam: Constitutional; In mild distress from pain iv site of K infussion HEENT: Atraumatic, normocephalic Neck: supple, no lymphadenopathy, JVD Lungs: Clear to auscultation, bilaterally, no wheeze, no crackles CVS; S1-S2 regular, no murmurs, rubs or gallop, Abdomen; soft, non-tender, non distended,bowel sounds are normal, Musculoskeletal; No edema, clubbing , or cyanosis INVENTORY COORDINATOR: Awake, alert,oriented x3, no focal neurological signs - Constitutional Vitals: Temp Pulse Resp BP Pulse Ox 98.7 F 78 18 133/76 98 06/09/18 04:43 06/09/18 04:43 06/09/18 04:43 06/09/18 09:52 06/09/18 04:43 General appearance: Present: no acute distress Results - Labs CBC & Chem 7: 06/09/18 00:49 06/09/18 05:27 Labs: Laboratory Last Values WBC 13.3 K/mm3 (4.5-11.0) H 06/09/18 00:49 RBC 3.39 M/mm3 (3.65-5.03) L 06/09/18 00:49 Hgb 10.2 gm/dl (10.1-14.3) 06/09/18 00:49 Hct 29.6 % (30.3-42.9) L 06/09/18 00:49 MCV 87 fl (79-97) 06/09/18 00:49 MCH 30 pg (28-32) 06/09/18 00:49 MCHC 35 % (30-34) H 06/09/18 00:49 RDW 12.9 % (13.2-15.2) L 06/09/18 00:49 Plt Count 223 K/mm3 (140-440) 06/09/18 00:49 Lymph % (Auto) 27.4 % (13.4-35.0) 06/09/18 00:49 [place] % (Auto) 5.6 % (0.0-7.3) 06/09/18 00:49 Eos % (Auto) 0.7 % (0.0-4.3) 06/09/18 00:49 Baso % (Auto) 0.2 % (0.0-1.8) 06/09/18 00:49 Lymph # 3.6 K/mm3 (1.2-5.4) 06/09/18 00:49 [place] # 0.7 K/mm3 (0.0-0.8) 06/09/18 00:49 Eos # 0.1 K/mm3 (0.0-0.4) 06/09/18 00:49 Baso # 0.0 K/mm3 (0.0-0.1) 07 00:49 Seg Neutrophils % 66.1 % (40.0-70.0) 06/09/18 00:49 Seg Neutrophils # 8.8 K/mm3 (1.8-7.7) H 06/09/18 00:49 PT 13.9 Sec. (12.2-14.9) 06/08/18 07:54 INR 1.02 (0.87-1.13) 06/08/18 07:54 Sodium 140 mmol/L (137-145) 06/09/18 05:27 Potassium 3.1 mmol/L (3.6-5.0) L 06/09/18 05:27 Chloride 102.0 mmol/L (98-107) 06/09/18 05:27 Carbon Dioxide 28 mmol/L (22-30) 06/09/18 05:27 Anion Gap 13 mmol/L 06/09/18 05:27 BUN 9 mg/dL (7-17) 06/09/18 05:27 Creatinine 0.7 mg/dL (0.7-1.2) 06/09/18 05:27 Estimated GFR > 60 ml/min 06/09/18 05:27 BUN/Creatinine Ratio 13 % 06/09/18 05:27 Glucose 114 mg/dL (65-100) H 06/09/18 05:27 POC Glucose 109 (70-105) H 06/09/18 08:02 Calcium 8.0 mg/dL (8.4-10.2) L 06/09/18 05:27 Magnesium 2.10 mg/dL (1.7-2.3) 06/09/18 05:27 Total Bilirubin 0.30 mg/dL (0.1-1.2) 06/08/18 07:54 AST 11 units/L (5-40) 06/08/18 07:54 ALT 6 units/L (7-56) L 06/08/18 07:54 Alkaline Phosphatase 63 units/L (35-129) 06/08/18 07:54 Total Creatine Kinase 107 units/L (30-135) 06/08/18 08:11 CK-MB (CK-2) < 1.0 ng/mL (0.0-4.0) 06/08/18 08:11 CK-MB (CK-2) Rel Index 0.9 (0-4) 06/08/18 08:11 Troponin T < 0.010 ng/mL (0.00-0.029) 06/08/18 08:11 Total Protein 5.7 g/dL (6.3-8.2) L 06/08/18 07:54 Albumin 3.3 g/dL (3.9-5) L 06/08/18 07:54 Albumin/Globulin Ratio 1.4 % 06/08/18 07:54 Triglycerides 107 mg/dL (2-149) 06/08/18 08:11 Cholesterol 109 mg/dL (50-199) 06/08/18 08:11 LDL Cholesterol Direct 65 mg/dL (50-130) 06/08/18 08:11 HDL Cholesterol 34 mg/dL (40-59) L 06/08/18 08:11 Cholesterol/HDL Ratio 3.20 % 06/08/18 08:11 Lipase 70 units/L (13-60) H 06/08/18 07:54 HCG, Qual Negative (Negative) 06/08/18 07:54 Blood Type B POSITIVE 06/08/18 07:54 Antibody Screen Negative 06/08/18 07:54
[2018-06-09] MEDS: MORPHINE IV PRN ×2 (12:36→22:35)
--- NOTE | 2018-06-09 14:11 | Progress Note ---
Assessment and Plan (1) GI bleed Current Visit: Yes Status: Acute (2) Abdominal pain Current Visit: Yes Status: Acute (3) Syncope Current Visit: Yes Status: Acute (4) History of cardiomyopathy Current Visit: Yes Status: Chronic (5) HTN (hypertension) Current Visit: Yes Status: Chronic (6) Diabetes Current Visit: Yes Status: Chronic (7) Hyperlipidemia Current Visit: Yes Status: Chronic (8) Hypokalemia Current Visit: Yes Status: Acute Improving (9) Hypomagnesemia Current Visit: Yes Status: Acute corrected to normal at 2.1 mg% (10) Hypocalcemia Current Visit: Yes Status: Acute (11) Leukocytosis Current Visit: Yes Status: Acute (12) History of hypothyroidism Current Visit: Yes Status: Chronic Patient is stable from cardiac escobar for GI work up. Subjective Date of service: 06/09/18 Interval history: c/o RLQ pain. No shortnesss of breath or CP. Objective Vital Signs Temp Pulse Resp BP Pulse Ox 06/09/18 12:13 98.8 F 74 20 137/83 98 06/09/18 09:52 133/76 06/09/18 04:43 98.7 F 78 18 111/53 98 06/09/18 00:02 98.6 F 74 18 136/69 98 06/08/18 21:30 78 97 06/08/18 21:27 99.0 F 81 17 173/88 98 06/08/18 21:24 82 124/71 06/08/18 21:15 98.8 F 18 124/71 06/08/18 17:14 98.3 F 76 20 132/77 99 - Physical Examination General: Appears Well HEENT: Positive: PERRL, Normocephaly, Mucus Membranes Moist Neck: Positive: neck supple, trachea midline. Negative: JVD/HJR Cardiac: Positive: Reg Rate and Rhythm Lungs: Positive: clear to auscultation Neuro: Positive: Grossly Intact, Cranial Nerve 2-12 Intact Abdomen: Positive: Soft. Negative: Organomegaly, Tender Skin: Positive: Clear. Negative: Rash, Wound Musculoskeletal: No Fluid Collection, No Pain, Normal Range of Motion Extremities: Absent: edema - Labs and Meds CBC 06/08/18 06/09/18 Range/Units 15:11 00:49 WBC 13.3 H (4.5-11.0) K/mm3 RBC 3.39 L (3.65-5.03) M/mm3 Hgb 10.8 10.2 (10.1-14.3) gm/dl Hct 31.6 29.6 L (30.3-42.9) % Plt Count 223 (140-440) K/mm3 Lymph # 3.6 (1.2-5.4) K/mm3 [place] # 0.7 (0.0-0.8) K/mm3 Eos # 0.1 (0.0-0.4) K/mm3 Baso # 0.0 (0.0-0.1) K/mm3 Comprehensive Metabolic Panel 06/09/18 Range/Units 05:27 Sodium 140 (137-145) mmol/L Potassium 3.1 L (3.6-5.0) mmol/L Chloride 102.0 (98-107) mmol/L Carbon Dioxide 28 (22-30) mmol/L BUN 9 (7-17) mg/dL Creatinine 0.7 (0.7-1.2) mg/dL Glucose 114 H (65-100) mg/dL Calcium 8.0 L (8.4-10.2) mg/dL - Imaging and Cardiology EKG: report reviewed, image reviewed Echo: pending - EKG Sinus rhythms and dysrhythmias: sinus rhythm Chamber hypertrophy or enlargement: left ventricular hypertro Repolarization changes or abnormalities: nonspecific abnormality, ST segment, and/or T wave
--- NOTE | 2018-06-09 18:21 | Progress Note ---
Assessment and Plan 1. Cecal diverticulitis - patient on antibiotics. States she is improving. If continues to do well, switch to oral antibiotics and discharge with outpatient follow-up. As outpatient, patient will need colonoscopy after 2 or 3 weeks, and consider evaluation for elective resection to prevent further attacks. 2. Hematochezia - patient only had one episode approximately 5 or 6 days ago and has not had any further bowel movements since then. Advance diet and monitor. Etiology is unclear but may be diverticular in origin. Subjective Date of service: 06/09/18 Interval history: Pt complains of mild RLQ pain. No GI bleed since last week. Objective - Constitutional Vitals: Vital Signs - 12hr 06/09/18 06/09/18 09:52 12:13 Temperature 98.8 F Pulse Rate 74 Respiratory 20 Rate Blood Pressure 133/76 137/83 O2 Sat by Pulse 98 Oximetry General appearance: Present: no acute distress - EENT Eyes: PERRL, EOM intact ENT: hearing intact - Respiratory Respiratory effort: normal - Gastrointestinal General gastrointestinal: Present: soft, tender (moderate, in RLQ) - Labs CBC & Chem 7: 06/09/18 00:49 06/09/18 05:27 Labs: Abnormal lab results 06/09/18 06/09/18 06/09/18 Range/Units 00:49 05:27 06:29 WBC 13.3 H (4.5-11.0) K/mm3 RBC 3.39 L (3.65-5.03) M/mm3 Hct 29.6 L (30.3-42.9) % MCHC 35 H (30-34) % RDW 12.9 L (13.2-15.2) % Seg Neutrophils # 8.8 H (1.8-7.7) K/mm3 Potassium 3.1 L (3.6-5.0) mmol/L Glucose 114 H (65-100) mg/dL POC Glucose 125 H (70-105) Calcium 8.0 L (8.4-10.2) mg/dL 06/09/18 06/09/18 Range/Units 08:02 11:37 WBC (4.5-11.0) K/mm3 RBC (3.65-5.03) M/mm3 Hct (30.3-42.9) % MCHC (30-34) % RDW (13.2-15.2) % Seg Neutrophils # (1.8-7.7) K/mm3 Potassium (3.6-5.0) mmol/L Glucose (65-100) mg/dL POC Glucose 109 H 156 H (70-105) Calcium (8.4-10.2) mg/dL
[2018-06-09] MEDS: POTASSIUM CHLORIDE PO SCH ×2 (19:57→23:57)
[2018-06-09] MEDS: PRAVACHOL PO SCH (22:24)
[2018-06-10 05:46] LABS: Hemoglobin 9.6 gm/dl (10.1-14.3); Mean Corpuscular HGB Conc 36 % (30-34); Mean Corpuscular Hemoglobin 31 pg (28-32); Mean Corpuscular Volume 88 fl (79-97); Platelet Count 217 K/mm3 (140-440); Red Blood Count 3.08 M/mm3 (3.65-5.03); Red Cell Distribution Width 12.8 % (13.2-15.2)
[2018-06-10] MEDS: FLAGYL 500 MG/100 ML 500 MG/100 ML BAG IV SCH ×2 (06:03→17:38)
[2018-06-10 06:14] LABS: BUN/Creatinine Ratio 11; Blood Urea Nitrogen 9 mg/dL (7-17); Calcium 8.1 mg/dL (8.4-10.2); Hemolysis Index 2
[2018-06-10] MEDS: ZESTRIL PO SCH (11:06)
[2018-06-10] MEDS: COREG PO SCH ×2 (11:07→23:07)
[2018-06-10] MEDS: LASIX PO SCH (11:07)
[2018-06-10] MEDS: LEVAQUIN 750MG/150ML 750 MG/150 ML BAG IV SCH (11:08)
[2018-06-10] MEDS: SODIUM CHLORIDE FLUSH SYRINGE 10 ML IV SCH ×4 (11:14→23:06)
--- NOTE | 2018-06-10 15:25 | Progress Note ---
Assessment and Plan 1. Cecal diverticulitis - patient on antibiotics. States she is improving. Switch to oral antibiotics and discharge tomorrow with outpatient follow-up if continues to do well. As outpatient, patient will need colonoscopy after 2 or 3 weeks, and consider evaluation for elective resection to prevent further attacks. 2. Hematochezia - patient had episode today, but much milder than 6 days ago. H/H down slightly. Advance diet and monitor. Etiology is unclear but may be diverticular in origin. - if stable tomorrow, may discharge. Subjective Date of service: 06/10/18 Interval history: Pt doing well. Had 1 BM today, dark, with BRB in bowl. No abd pain, N/V. Objective - Constitutional Vitals: Vital Signs - 12hr 06/10/18 06/10/18 05:39 11:18 Temperature 98.1 F 98.3 F Pulse Rate 70 74 Respiratory 16 16 Rate Blood Pressure 109/56 120/73 O2 Sat by Pulse 99 99 Oximetry General appearance: Present: no acute distress - EENT Eyes: PERRL, EOM intact ENT: hearing intact - Respiratory Respiratory effort: normal - Gastrointestinal General gastrointestinal: Present: soft, tender (RLQ, mild) - Labs CBC & Chem 7: 06/10/18 05:33 06/10/18 05:33 Labs: Abnormal lab results 06/09/18 06/10/18 06/10/18 Range/Units 21:43 05:33 05:33 RBC 3.08 L (3.65-5.03) M/mm3 Hgb 9.6 L (10.1-14.3) gm/dl Hct 27.0 L (30.3-42.9) % MCHC 36 H (30-34) % RDW 12.8 L (13.2-15.2) % Glucose 104 H (65-100) mg/dL POC Glucose 119 H (70-105) Calcium 8.1 L (8.4-10.2) mg/dL 06/10/18 06/10/18 Range/Units 07:48 12:25 RBC (3.65-5.03) M/mm3 Hgb (10.1-14.3) gm/dl Hct (30.3-42.9) % MCHC (30-34) % RDW (13.2-15.2) % Glucose (65-100) mg/dL POC Glucose 111 H 135 H (70-105) Calcium (8.4-10.2) mg/dL
--- NOTE | 2018-06-10 16:18 | Progress Note ---
Assessment and Plan Assessment and plan: Acute lower GI bleed Presented with bright red blood per rectum Hgb 9.6 CT Abd revealed cecal diverticulitus H/H Q 6h Acute diverticulitis. Continue Levaquin and Flagyl, but will change to oral as recommended by GI Hypokalemia. Improved. Will give Potassium orally since started a diet. Hypomagnesemia. Now resolved after giving 2g K-rider Chronic systolic CHF, Goes to [place]. EKG some abnormalities. She was evaluated by cardiology and conservative management recommended Hypertension. Monitor BP Hyperlipidemia Full code status Discussed with Dr. Negrete, GI. History Interval history: Feels better one episode of bloody stool, mild crampy abdominal pain Hospitalist Physical - Physical exam Narrative exam: Constitutional; no acute distress, lying in bed, obese HEENT: Atraumatic, normocephalic Neck: supple, no lymphadenopathy, JVD Lungs: Clear to auscultation, bilaterally, no wheeze, no crackles CVS; S1-S2 regular, no murmurs, rubs or gallop, Abdomen; soft, non-tender, non distended,bowel sounds are normal, Musculoskeletal; No edema, clubbing , or cyanosis PROCESS WORKER: Awake, alert,oriented x3, no focal neurological signs - Constitutional Vitals: Temp Pulse Resp BP Pulse Ox 98.3 F 74 16 120/73 99 06/10/18 11:18 06/10/18 11:18 06/10/18 11:18 06/10/18 11:18 06/10/18 11:18 General appearance: Present: no acute distress Results - Labs CBC & Chem 7: 06/10/18 05:33 06/10/18 05:33 Labs: Laboratory Last Values WBC 10.2 K/mm3 (4.5-11.0) 06/10/18 05:33 RBC 3.08 M/mm3 (3.65-5.03) L 06/10/18 05:33 Hgb 9.6 gm/dl (10.1-14.3) L 06/10/18 05:33 Hct 27.0 % (30.3-42.9) L 06/10/18 05:33 MCV 88 fl (79-97) 06/10/18 05:33 MCH 31 pg (28-32) 06/10/18 05:33 MCHC 36 % (30-34) H 06/10/18 05:33 RDW 12.8 % (13.2-15.2) L 06/10/18 05:33 Plt Count 217 K/mm3 (140-440) 06/10/18 05:33 Lymph % (Auto) 27.4 % (13.4-35.0) 06/09/18 00:49 [place] % (Auto) 5.6 % (0.0-7.3) 06/09/18 00:49 Eos % (Auto) 0.7 % (0.0-4.3) 06/09/18 00:49 Baso % (Auto) 0.2 % (0.0-1.8) 06/09/18 00:49 Lymph # 3.6 K/mm3 (1.2-5.4) 06/09/18 00:49 [place] # 0.7 K/mm3 (0.0-0.8) 06/09/18 00:49 Eos # 0.1 K/mm3 (0.0-0.4) 06/09/18 00:49 Baso # 0.0 K/mm3 (0.0-0.1) 06/09/18 00:49 Seg Neutrophils % 66.1 % (40.0-70.0) 06/09/18 00:49 Seg Neutrophils # 8.8 K/mm3 (1.8-7.7) H 06/09/18 00:49 PT 13.9 Sec. (12.2-14.9) 06/08/18 07:54 INR 1.02 (0.87-1.13) 06/08/18 07:54 Sodium 140 mmol/L (137-145) 06/10/18 05:33 Potassium 3.7 mmol/L (3.6-5.0) 06/10/18 05:33 Chloride 102.6 mmol/L (98-107) 06/10/18 05:33 Carbon Dioxide 27 mmol/L (22-30) 06/10/18 05:33 Anion Gap 14 mmol/L 06/10/18 05:33 BUN 9 mg/dL (7-17) 06/10/18 05:33 Creatinine 0.8 mg/dL (0.7-1.2) 06/10/18 05:33 Estimated GFR > 60 ml/min 06/10/18 05:33 BUN/Creatinine Ratio 11 % 06/10/18 05:33 Glucose 104 mg/dL (65-100) H 06/10/18 05:33 POC Glucose 135 (70-105) H 06/10/18 12:25 Calcium 8.1 mg/dL (8.4-10.2) L 06/10/18 05:33 Magnesium 2.10 mg/dL (1.7-2.3) 06/09/18 05:27 Total Bilirubin 0.30 mg/dL (0.1-1.2) 06/08/18 07:54 AST 11 units/L (5-40) 06/08/18 07:54 ALT 6 units/L (7-56) L 06/08/18 07:54 Alkaline Phosphatase 63 units/L (35-129) 06/08/18 07:54 Total Creatine Kinase 107 units/L (30-135) 06/08/18 08:11 CK-MB (CK-2) < 1.0 ng/mL (0.0-4.0) 06/08/18 08:11 CK-MB (CK-2) Rel Index 0.9 (0-4) 06/08/18 08:11 Troponin T < 0.010 ng/mL (0.00-0.029) 06/08/18 08:11 Total Protein 5.7 g/dL (6.3-8.2) L 06/08/18 07:54 Albumin 3.3 g/dL (3.9-5) L 06/08/18 07:54 Albumin/Globulin Ratio 1.4 % 06/08/18 07:54 Triglycerides 107 mg/dL (2-149) 06/08/18 08:11 Cholesterol 109 mg/dL (50-199) 06/08/18 08:11 LDL Cholesterol Direct 65 mg/dL (50-130) 06/08/18 08:11 HDL Cholesterol 34 mg/dL (40-59) L 06/08/18 08:11 Cholesterol/HDL Ratio 3.20 % 06/08/18 08:11 Lipase 70 units/L (13-60) H 06/08/18 07:54 HCG, Qual Negative (Negative) 06/08/18 07:54 Blood Type B POSITIVE 06/08/18 07:54 Antibody Screen Negative 06/08/18 07:54
[2018-06-10] MEDS: FLAGYL PO SCH (16:37)
[2018-06-10] MEDS: K-DUR PO SCH (16:37)
[2018-06-10] MEDS: PRAVACHOL PO SCH (23:07)
[2018-06-10] MEDS: MORPHINE IV PRN (23:15)
[2018-06-11] MEDS: FLAGYL PO SCH ×3 (01:12→16:59)
[2018-06-11 07:33] LABS: Hemoglobin 9.9 gm/dl (10.1-14.3)
[2018-06-11] MEDS: ZESTRIL PO SCH (09:41)
[2018-06-11] MEDS: LASIX PO SCH (09:41)
[2018-06-11] MEDS: K-DUR PO SCH (09:42)
[2018-06-11] MEDS: COREG PO SCH (09:42)
[2018-06-11] MEDS: SODIUM CHLORIDE FLUSH SYRINGE 10 ML IV SCH (09:44)
[2018-06-11] MEDS ORDERED: LEVAQUIN PO SCH (10:00)
--- NOTE | 2018-06-11 11:37 | Progress Note ---
Assessment and Plan Plans for OP colonoscopy per GI. Currently stable cardiac status. Pt may discharge home from cardiology standpoint. Recommend pt follow up with her primary foam rubber fabricator, Dr. Haresh Vicente, within 1-2 weeks of hospital discharge. Pt verbalizes understanding. The patient has been seen in conjunction with Dr. Bojorquez who agrees with the assessment and plan of care. - Patient Problems (1) Diverticulitis Current Visit: Yes Status: Acute (2) GI bleed Current Visit: Yes Status: Acute (3) Syncope Current Visit: Yes Status: Acute (4) History of cardiomyopathy Current Visit: Yes Status: Chronic (5) HTN (hypertension) Current Visit: Yes Status: Chronic (6) Diabetes Current Visit: Yes Status: Chronic (7) Hyperlipidemia Current Visit: Yes Status: Chronic (8) Hypokalemia Current Visit: Yes Status: Acute (9) Hypomagnesemia Current Visit: Yes Status: Acute (10) Hypocalcemia Current Visit: Yes Status: Acute (11) Leukocytosis Current Visit: Yes Status: Acute (12) History of hypothyroidism Current Visit: Yes Status: Chronic Subjective Date of service: 06/11/18 Principal diagnosis: GIB Interval history: pt resting comfortably in bed, no current complaints. Objective Last Vital Signs Temp 97.6 F 06/11/18 06:01 Pulse 79 06/11/18 09:41 Resp 18 06/11/18 06:01 BP 138/71 06/11/18 09:41 Pulse Ox 97 06/11/18 06:01 - Physical Examination General: Appears Well HEENT: Positive: PERRL, Normocephaly, Mucus Membranes Moist Neck: Positive: neck supple, trachea midline. Negative: JVD/HJR Cardiac: Positive: Reg Rate and Rhythm, S1/S2 Lungs: Positive: clear to auscultation Neuro: Positive: Grossly Intact, Cranial Nerve 2-12 Intact Abdomen: Positive: Soft. Negative: Organomegaly, Tender Skin: Positive: Clear. Negative: Rash, Wound Musculoskeletal: No Fluid Collection, No Pain, Normal Range of Motion Extremities: Absent: edema - Labs and Meds CBC 06/11/18 Range/Units 07:09 Hgb 9.9 L (10.1-14.3) gm/dl Hct 28.0 L (30.3-42.9) % - Imaging and Cardiology EKG: report reviewed, image reviewed Echo: report reviewed (EF 30-35%, RV systolic function mildly reduced, trace TR) - Telemetry EKG Rhythm: Sinus Rhythm - EKG Sinus rhythms and dysrhythmias: sinus rhythm Chamber hypertrophy or enlargement: left ventricular hypertro Repolarization changes or abnormalities: nonspecific abnormality, ST segment, and/or T wave
[2018-06-11 12:27] VITALS: BP 133/77
--- NOTE | 2018-06-11 15:16 | Discharge Summary ---
Providers - Providers Date of Admission: 06/08/18 09:29 Date of discharge: 06/11/18 Attending physician: CHASTITY OSHEA 06/08/18 08:51 Consult to Physician [CONS] Urgent Comment: DR MCCLELLAND SPOKE WITH [id number] Consulting Provider: FLOR KOCH Physician Instructions: Reason For Exam: rectal bleeding 06/08/18 09:28 Consult to Physician [CONS] Routine Comment: ANILA Driscoll AWRE OF PT Consulting Provider: ANN MARIE CHAVEZ Physician Instructions: Reason For Exam: CHF,abnormal EKG Primary care physician: CHEMICAL STRENGTH TESTER Hospitalization Condition: Fair Disposition: DC-01 TO HOME OR SELFCARE Core Measure Documentation - Palliative Care Palliative Care/ Comfort Measures: Not Applicable - Core Measures Any of the following diagnoses?: none Exam - Constitutional Vitals: Temp Pulse Resp BP Pulse Ox 99.1 F 74 20 133/77 99 06/11/18 11:30 06/11/18 11:30 06/11/18 11:30 06/11/18 11:30 06/11/18 11:30 Plan Activity: advance as tolerated Diet: low fat, low cholesterol, low salt, diabetic Additional Instructions: 1.Follow up with PCP in 1 week. 2.Follow up with Cardiology in 1 week. 3.Follow up with Dr. Negrete GI in 1 week to arrange outpatient colonoscopy. Follow up with: PRIMARY CARE, [Primary Care Provider] - 3-5 Days Prescriptions: Ciprofloxacin HCl [Ciprofloxacin TAB] 500 mg PO Q12HR 7 Days tab metroNIDAZOLE [Flagyl TAB] 500 mg PO Q8H 7 Days tablet traMADol [Ultram 50 MG tab] 50 mg PO Q8H PRN #10 tablet PRN Reason: Pain
--- NOTE | 2018-06-11 17:06 | Gastroenterology Progress Note ---
Assessment and Plan GI: no signs bleeding overnight - complete 10 days po antibiotics as outpt - will sign off, call if needed Subjective Date of service: 06/11/18 Principal diagnosis: GIB Interval history: - no GI complaints overnight Objective - Constitutional Vitals: Temp Pulse Resp BP Pulse Ox 99.1 F 74 20 133/77 99 06/11/18 11:30 06/11/18 11:30 06/11/18 11:30 06/11/18 11:30 06/11/18 11:30 General appearance: no acute distress - EENT Eyes: PERRL - Respiratory Respiratory: bilateral: CTA - Cardiovascular Rhythm: regular Heart Sounds: Present: S1 & S2 - Gastrointestinal General gastrointestinal: Present: soft, non-tender - Labs CBC & Chem 7: 06/11/18 07:09 06/10/18 05:33 Labs: Laboratory Results - last 24 hr 06/10/18 06/11/18 21:53 07:09 Hgb 9.9 L Hct 28.0 L POC Glucose 111 H
[2018-06-11] MEDS ORDERED: DIFLUCAN PO ONE (18:00)
== END 2018-06-11 17:30 | disposition home or self-care (01) | DRG 378 ==
LOC: ED 07:36 → 3A 09:29
PROVIDERS: ADMIT Internal Medicine; ATTEND Internal Medicine
PROC: 4A033R1 Measurement of Arterial Saturation, Peripheral, Percutaneous Approach (ICD-10-PCS; principal; 2018-06-10)
DX: K57.33 Diverticulitis of large intestine without perforation or abscess with bleeding (principal); I42.9 Cardiomyopathy, unspecified; I50.22 Chronic systolic (congestive) heart failure; R55 Syncope and collapse; E11.9 Type 2 diabetes mellitus without complications; E78.5 Hyperlipidemia, unspecified; E87.6 Hypokalemia; E83.42 Hypomagnesemia; E83.51 Hypocalcemia; D72.829 Elevated white blood cell count, unspecified; I11.0 Hypertensive heart disease with heart failure; E89.0 Postprocedural hypothyroidism; Z90.49 Acquired absence of other specified parts of digestive tract; Z79.899 Other long term (current) drug therapy; Z72.89 Other problems related to lifestyle
CPT/HCPCS: 36415; 36600; 74177; 80048; 80053; 80061; 82271; 82550; 82553; 82962; 83690; 83735; 84484; 84703; 85014; 85018; 85025; 85027; 85610; 86850; 86900; 86901; 93005; 93010; 93306; 96361; 96365; A9270-GY; J1956; J2270; J2405; J3475; J3480; Q9967

== ENCOUNTER 2019-01-22 08:06 | Emergency (ER) | payer OTHER ==
[2019-01-22 08:31] LABS: Basophils % (Auto) 0.3 % (0.0-1.8); Eosinophils # (Auto) 0.1 K/mm3 (0.0-0.4); Eosinophils % (Auto) 1.5 % (0.0-4.3); Hematocrit 41.9 % (30.3-42.9); Hemoglobin 14.4 gm/dl (10.1-14.3); Lymphocytes # (Auto) 2.1 K/mm3 (1.2-5.4); Lymphocytes % (Auto) 27.1 % (13.4-35.0); Mean Corpuscular HGB Conc 34 % (30-34); Mean Corpuscular Volume 87 fl (79-97); Monocytes # (Auto) 0.4 K/mm3 (0.0-0.8); Monocytes % (Auto) 5.4 % (0.0-7.3); Platelet Count 297 K/mm3 (140-440); Red Blood Count 4.84 M/mm3 (3.65-5.03); Red Cell Distribution Width 14.1 % (13.2-15.2)
--- NOTE | 2019-01-22 08:43 | Emergency Department Report ---
ED Chest Pain HPI - General Chief Complaint: Chest Pain Stated Complaint: LOWER BACK PAIN/ABD PAIN/ Time Seen by Provider: 01/22/19 08:41 Source: patient Mode of arrival: Ambulatory Limitations: No Limitations - History of Present Illness Initial Comments: 43 year old female who complains of only lower back pain to me. Apparently at triage she did state that her lower back pain was her chief complaint but also had a variety of other issues to include tingling of her lef and left-sided chest pain. She denied any coffee with her breathing nausea vomiting or diarrhea. She admitted that the back pain worsens with movement and is somewhat chronic and not associated with injury. She denies prior history of x-rays or previous workup. She does not complain of abdominal pain. She does not complain of chest pain. The patient has been seen at this facility number of times for chest pain. She has a history of cardiomyopathy (last known EF 30-35%), HF, HTN, DM, HLP, hypothyroidism. She is regularly followed by Dr. Haresh Vicente in [place]. Complaint: other -: week(s) Onset: during rest Pain Location: other (lower back pain) Pain Radiation: other (left thigh) Severity: moderate Severity scale (0 -10): 5 Quality: aching Consistency: constant Improves With: nothing Worsens With: movement re: denies: nausea, vomting, diaphoresis, dyspnea, sense of impending doom Other Symptoms: denies: cough, fever, syncope Treatments Prior to Arrival: none Aspirin use within the Past 7 Days: (0) No - Related Data Home Medications Medication Instructions Recorded Confirmed Last Taken Carvedilol 6.25 mg PO BID 06/30/16 06/08/18 06/07/18 Furosemide 40 mg PO DAILY 06/30/16 06/08/18 06/07/18 Lisinopril 20 mg PO DAILY 06/30/16 06/08/18 06/07/18 Levothyroxine Sodium [Synthroid] 137 mcg PO DAILY 06/08/18 06/08/18 06/07/18 Potassium Chloride [K-Dur] 10 meq PO DAILY 06/08/18 06/08/18 06/07/18 Pravastatin [Pravachol] 40 mg PO QHS 06/08/18 06/08/18 06/07/18 Previous Rx's Medication Instructions Recorded Last Taken Type Ciprofloxacin HCl [Ciprofloxacin 500 mg PO Q12HR 7 Days tab 06/11/18 Unknown Rx TAB] metroNIDAZOLE [Flagyl TAB] 500 mg PO Q8H 7 Days tablet 06/11/18 Unknown Rx traMADol [Ultram 50 MG tab] 50 mg PO Q8H PRN #10 tablet 06/11/18 Unknown Rx Butalb/Acetamin/Caff 50-325-40 1 tab PO Q6HR PRN #15 tab 09/28/18 Unknown Rx [Fioricet] Cyclobenzaprine [Flexeril] 10 mg PO TID PRN #20 tablet 01/22/19 Unknown Rx HYDROcodone/APAP 5-325 [[place] 1 each PO Q4HR PRN #14 tablet 01/22/19 Unknown Rx 5/325] Allergies Allergy/AdvReac Type Severity Reaction Status Date / Time No Known Allergies Allergy Unverified 06/22/15 09:13 Heart Score - HEART Score History: Slightly suspicious EKG: Normal Age: < 45 Risk factors: No known risk factors Troponin: < normal limit HEART Score: 0 - Critical Actions Critical Actions: 0-3 pts:0.9-1.7%risk of adverse cardiac event.Candidate for discharge ED Review of Systems ROS: Stated complaint: LOWER BACK PAIN/ABD PAIN/ Other details as noted in HPI Constitutional: denies: chills, fever Eyes: denies: eye pain, eye discharge, vision change ENT: denies: ear pain, throat pain Respiratory: denies: cough, shortness of breath, wheezing Cardiovascular: as per HPI. denies: palpitations Endocrine: no symptoms reported Gastrointestinal: as per HPI. denies: nausea, vomiting, diarrhea Genitourinary: denies: urgency, dysuria, discharge Musculoskeletal: as per HPI, back pain. denies: joint swelling, arthralgia Skin: denies: rash, lesions Neurological: denies: headache, weakness, paresthesias Psychiatric: denies: anxiety, depression Hematological/Lymphatic: denies: easy bleeding, easy bruising ED Past Medical Hx - Past Medical History Previous Medical History?: Yes Hx Hypertension: Yes Hx Congestive Heart Failure: Yes Hx Diabetes: Yes Hx Asthma: No Hx COPD: No Hx HIV: No Additional medical history: hypothyroid, high cholesterol, low potassium, migrai anders (used to take Imitrex) - Surgical History Past Surgical History?: Yes Hx Cholecystectomy: Yes Additional Surgical History: C-sections, thyroidectomy - Social History Smoking Status: Never Smoker Substance Use Type: Alcohol - Medications Home Medications: Home Medications Medication Instructions Recorded Confirmed Last Taken Type Carvedilol 6.25 mg PO BID 06/30/16 06/08/18 06/07/18 History Furosemide 40 mg PO DAILY 06/30/16 06/08/18 06/07/18 History Lisinopril 20 mg PO DAILY 06/30/16 06/08/18 06/07/18 History Levothyroxine Sodium [Synthroid] 137 mcg PO DAILY 06/08/18 06/08/18 06/07/18 History Potassium Chloride [K-Dur] 10 meq PO DAILY 06/08/18 06/08/18 06/07/18 History Pravastatin [Pravachol] 40 mg PO QHS 06/08/18 06/08/18 06/07/18 History Ciprofloxacin HCl [Ciprofloxacin 500 mg PO Q12HR 7 Days tab 06/11/18 Unknown Rx TAB] metroNIDAZOLE [Flagyl TAB] 500 mg PO Q8H 7 Days tablet 06/11/18 Unknown Rx traMADol [Ultram 50 MG tab] 50 mg PO Q8H PRN #10 tablet 06/11/18 Unknown Rx Butalb/Acetamin/Caff 50-325-40 1 tab PO Q6HR PRN #15 tab 09/28/18 Unknown Rx [Fioricet] Cyclobenzaprine [Flexeril] 10 mg PO TID PRN #20 tablet 01/22/19 Unknown Rx HYDROcodone/APAP 5-325 [[place] 1 each PO Q4HR PRN #14 tablet 01/22/19 Unknown Rx 5/325] ED Physical Exam - General Limitations: No Limitations General appearance: alert, in no apparent distress - Head Head exam: Present: atraumatic, normocephalic - Eye Eye exam: Present: normal appearance. Absent: scleral icterus - ENT ENT exam: Present: mucous membranes moist - Neck Neck exam: Present: normal inspection. Absent: tenderness, meningismus - Respiratory Respiratory exam: Present: normal lung sounds bilaterally. Absent: respiratory distress - Cardiovascular Cardiovascular Exam: Present: regular rate, normal rhythm. Absent: systolic murmur, diastolic murmur, rubs, gallop - GI/Abdominal GI/Abdominal exam: Present: soft, normal bowel sounds. Absent: distended, tenderness, guarding, rebound, rigid - Extremities Exam Extremities exam: Present: normal inspection, full ROM, normal capillary refill. Absent: tenderness, pedal edema, joint swelling, calf tenderness - Back Exam Back exam: Present: normal inspection, paraspinal tenderness (generalized lower), other (straight leg raise negative bilaterally). Absent: full ROM, tenderness, CVA tenderness (R), CVA tenderness (L), muscle spasm, vertebral tenderness - Neurological Exam Neurological exam: Present: alert, oriented X3, CN II-XII intact. Absent: motor sensory deficit - Psychiatric Psychiatric exam: Present: normal affect, normal mood - Skin Skin exam: Present: warm, dry, intact, normal color. Absent: rash ED Course Vital Signs 01/22/19 01/22/19 01/22/19 08:32 08:33 08:36 Pulse Rate 74 74 Respiratory 18 18 18 Rate Blood Pressure 156/98 [Left] O2 Sat by Pulse 97 97 Oximetry 01/22/19 01/22/19 09:30 12:00 Pulse Rate 72 80 Respiratory 16 14 Rate Blood Pressure 138/100 153/93 [Left] O2 Sat by Pulse 96 96 Oximetry - Reevaluation(s) Reevaluation #1: She presented to triage with a plethora of complaints. I have not found an indication for hospitalization. Patient is referred back to her usual primary care providers. She will be given medicine for pain and a muscle relaxer. She will be referred to orthopedics. 01/22/19 12:35 CONG score - Cong Score Age > 65: (0) No Aspirin use within the Past 7 Days: (0) No 3 or more CAD Risk Factors: (0) No 2 or more Angina events in past 24 hrs: (0) No Known CAD with more than 50% Stenosis: (0) No Elevated Cardiac Markers: (0) No ST Deviation Greater than 0.5mm: (0) No CONG Score: 0 ED Medical Decision Making - Lab Data Result diagrams: 01/22/19 08:19 01/22/19 08:19 Laboratory Results - last 24 hr 01/22/19 08:19 WBC 7.8 RBC 4.84 Hgb 14.4 H Hct 41.9 MCV 87 MCH 30 MCHC 34 RDW 14.1 Plt Count 297 Lymph % (Auto) 27.1 [place] % (Auto) 5.4 Eos % (Auto) 1.5 Baso % (Auto) 0.3 Lymph # 2.1 [place] # 0.4 Eos # 0.1 Baso # 0.0 Seg Neutrophils % 65.7 Seg Neutrophils # 5.1 Laboratory Results - last 24 hr 01/22/19 01/22/19 01/22/19 08:19 08:19 08:19 WBC 7.8 RBC 4.84 Hgb 14.4 H Hct 41.9 MCV 87 MCH 30 MCHC 34 RDW 14.1 Plt Count 297 Lymph % (Auto) 27.1 [place] % (Auto) 5.4 Eos % (Auto) 1.5 Baso % (Auto) 0.3 Lymph # 2.1 [place] # 0.4 Eos # 0.1 Baso # 0.0 Seg Neutrophils % 65.7 Seg Neutrophils # 5.1 Sodium 142 Potassium 3.2 L Chloride 100.5 Carbon Dioxide 29 Anion Gap 16 BUN 8 Creatinine 0.6 L Estimated GFR > 60 BUN/Creatinine Ratio 13 Glucose 141 H Calcium 8.7 Troponin T < 0.010 HCG, Qual Negative 01/22/19 11:15 WBC RBC Hgb Hct MCV MCH MCHC RDW Plt Count Lymph % (Auto) [place] % (Auto) Eos % (Auto) Baso % (Auto) Lymph # [place] # Eos # Baso # Seg Neutrophils % Seg Neutrophils # Sodium Potassium Chloride Carbon Dioxide Anion Gap BUN Creatinine Estimated GFR BUN/Creatinine Ratio Glucose Calcium Troponin T < 0.010 HCG, Qual - EKG Data -: EKG Interpreted by Fl EKG shows normal: sinus rhythm, axis, intervals, QRS complexes (suggests LVH), ST-T waves (nonspecific inferolateral ST depression may be related to LVH prolonged QT mildly) Rate: normal - EKG Data Interpretation: nonspecific ST-T wave robbie - Radiology Data Mild degenerative disc disease and facet arthropathy are identified at L3-4, L4-5 and L5-S1. There is normal height and alignment of the vertebral bodies. No evidence for fracture, subluxation or bone lesion. The sacrum and SI joints are unremarkable. IMPRESSION: No acute process. Mild lumbar spondylosis as described. Critical care attestation.: If time is entered above; I have spent that time in minutes in the direct care of this critically ill patient, excluding procedure time. ED Disposition Clinical Impression: Lower back pain Qualifiers: Chronicity: unspecified Back pain laterality: unspecified Sciatica presence: with sciatica Sciatica laterality: sciatica of left side Qualified Code(s): M5 4.42 - Lumbago with sciatica, left side Disposition: TO HOME OR SELFCARE Is pt being admited?: No Does the pt Need Aspirin: No Condition: Stable Instructions: Chronic Back Pain (ED), Back Pain (ED), Chest Pain (ED) Additional Instructions: Return any EKG changes or significant symptoms as needed. Follow-up with the usual primary care providers as well as the orthopedic referral. Prescriptions: Cyclobenzaprine [Flexeril] 10 mg PO TID PRN #20 tablet PRN Reason: Muscle Spasm HYDROcodone/APAP 5-325 [[place] 5/325] 1 each PO Q4HR PRN #14 tablet PRN Reason: Pain Referrals: SALMA SHAW MD [Staff Physician] - 3-5 Days [place] LANETTE COLLINS MD [Primary Care Provider] - 2-3 Days Time of Disposition: 12:38
[2019-01-22 08:46] LABS: BUN/Creatinine Ratio 13; Blood Urea Nitrogen 8 mg/dL (7-17); Calcium 8.7 mg/dL (8.4-10.2); Hemolysis Index 5
[2019-01-22] MEDS ORDERED: MORPHINE IM ONE (08:55)
[2019-01-22] MEDS ORDERED: ZOFRAN ODT PO ONE (08:55)
--- NOTE | 2019-01-22 09:55 | XRay Report ---
AP AND LATERAL LUMBOSACRAL SPINE: History: Lower back pain. Mild degenerative disc disease and facet arthropathy are identified at L3-4, L4-5 and L5-S1. There is normal height and alignment of the vertebral bodies. No evidence for fracture, subluxation or bone lesion. The sacrum and SI joints are unremarkable. IMPRESSION: No acute process. Mild lumbar spondylosis as described.
[2019-01-22] MEDS ORDERED: K-DUR PO ONE (12:25)
[2019-01-22] MEDS ORDERED: DILAUDID IM ONE (12:28)
[2019-01-22 12:33] VITALS: BP 153/93
== END 2019-01-22 12:55 | disposition home or self-care (01) ==
LOC: ED 08:06
DX: M54.42 Lumbago with sciatica, left side (principal); I11.0 Hypertensive heart disease with heart failure; E11.9 Type 2 diabetes mellitus without complications; E78.00 Pure hypercholesterolemia, unspecified; G43.909 Migraine, unspecified, not intractable, without status migrainosus; Z90.49 Acquired absence of other specified parts of digestive tract; Z90.89 Acquired absence of other organs; Z79.899 Other long term (current) drug therapy
CPT/HCPCS: 36415; 72100; 80048; 84484; 84703; 85025; 93005; 93010; 96372; 99284; J1170; J2270; Q0162

== ENCOUNTER 2019-02-18 10:52 | Observation (INO) | payer SELFPAY ==
--- NOTE | 2019-02-18 11:06 | Emergency Department Report ---
Blank Doc - Documentation Documentation: This is a 43-year-old female that presents with GI bleed symptoms. This initial assessment/diagnostic orders/clinical plan/treatment(s) is/are subject to change based on patient's health status, clinical progression and re- assessment by fellow clinical providers in the ED. Further treatment and workup at subsequent clinical providers discretion. Patient/guardians urged not to elope from the ED as their condition may be serious if not clinically assessed and managed. Initial orders include: 1- Patient sent to MAIN ED for further evaluation and treatment 2- labs 3- UA
[2019-02-18 12:06] LABS: Basophils % (Auto) 0.4 % (0.0-1.8); Eosinophils # (Auto) 0.1 K/mm3 (0.0-0.4); Eosinophils % (Auto) 1.4 % (0.0-4.3); Hematocrit 37.5 % (30.3-42.9); Hemoglobin 13.1 gm/dl (10.1-14.3); Lymphocytes # (Auto) 2.7 K/mm3 (1.2-5.4); Lymphocytes % (Auto) 26.3 % (13.4-35.0); Mean Corpuscular HGB Conc 35 % (30-34); Mean Corpuscular Volume 85 fl (79-97); Monocytes # (Auto) 0.5 K/mm3 (0.0-0.8); Monocytes % (Auto) 4.9 % (0.0-7.3); Platelet Count 307 K/mm3 (140-440); Red Blood Count 4.39 M/mm3 (3.65-5.03); Red Cell Distribution Width 13.9 % (13.2-15.2)
[2019-02-18 12:35] LABS: Alanine Aminotransferase 14 units/L (7-56); BUN/Creatinine Ratio 13; Blood Urea Nitrogen 13 mg/dL (7-17); Calcium 8.3 mg/dL (8.4-10.2); Hemolysis Index 6
[2019-02-18 12:36] LABS: Bilirubin,Direct < 0.2 mg/dL (0-0.2)
[2019-02-18] MEDS ORDERED: NACL 0.9% 1000 ML 1,000 ML IV ONE (13:19)
--- NOTE | 2019-02-18 13:22 | Emergency Department Report ---
ED Abdominal Pain HPI - General Chief Complaint: GI Bleed Stated Complaint: BLOOD IN STOOL/LIGHTHEADED Time Seen by Provider: 02/18/19 11:05 Source: patient Mode of arrival: Ambulatory Limitations: No Limitations - History of Present Illness Initial Comments: Patient is a 43-year-old -[place] female who comes into the ER today complaining of clots which she describes as red in her stool. Upon further investigation the patient reports that her stools have been dark but with also bright red blood. Patient is also reporting being lightheaded. Patient does have a history of a GI bleed for which she was admitted here for. At that time she saw a flash oven operator inpatient and was referred to see one outpatient. However, she has not followed up for colonoscopy as instructed. No n/v or constipation Crampy abd pain lower quadrants no dysuria or fever. PMH HTN DM CHF HPLD HYPOTHYROIDISM MD Complaint: abdominal pain -: Gradual, days(s) Location: LLQ, RLQ Migration to: no migration Severity scale (0 -10): 4 Quality: cramping Consistency: intermittent Improves With: nothing Worsens With: nothing Associated Symptoms: melena - Related Data Home Medications Medication Instructions Recorded Confirmed Last Taken Carvedilol 6.25 mg PO BID 06/30/16 06/08/18 06/07/18 Furosemide 40 mg PO DAILY 06/30/16 06/08/18 06/07/18 Lisinopril 20 mg PO DAILY 06/30/16 06/08/18 06/07/18 Levothyroxine Sodium [Synthroid] 137 mcg PO DAILY 06/08/18 06/08/18 06/07/18 Potassium Chloride [K-Dur] 10 meq PO DAILY 06/08/18 06/08/18 06/07/18 Pravastatin [Pravachol] 40 mg PO QHS 06/08/18 06/08/18 06/07/18 Allergies Allergy/AdvReac Type Severity Reaction Status Date / Time No Known Allergies Allergy Unverified 06/22/15 09:13 ED Review of Systems ROS: Stated complaint: BLOOD IN STOOL/LIGHTHEADED Other details as noted in HPI Comment: Unobtainable due to pts medical conditions Constitutional: denies: chills Eyes: denies: eye pain ENT: denies: ear pain Respiratory: denies: orthopnea Cardiovascular: denies: palpitations Endocrine: denies: intolerance to cold Gastrointestinal: as per HPI, abdominal pain, melena Genitourinary: denies: urgency Musculoskeletal: denies: back pain Skin: denies: lesions Neurological: denies: headache Psychiatric: denies: anxiety Hematological/Lymphatic: denies: easy bleeding ED Past Medical Hx - Past Medical History Hx Hypertension: Yes Hx Congestive Heart Failure: Yes Hx Diabetes: Yes Hx Asthma: No Hx COPD: No Hx HIV: No Additional medical history: hypothyroid, high cholesterol, low potassium, migraines (used to take Imitrex) - Surgical History Past Surgical History?: Yes Hx Cholecystectomy: Yes Additional Surgical History: C-sections, thyroidectomy - Family History Family history: no significant - Social History Smoking Status: Never Smoker Substance Use Type: Alcohol - Medications Home Medications: Home Medications Medication Instructions Recorded Confirmed Last Taken Type Carvedilol 6.25 mg PO BID 06/30/16 06/08/18 06/07/18 History Furosemide 40 mg PO DAILY 06/30/16 06/08/18 06/07/18 History Lisinopril 20 mg PO DAILY 06/30/16 06/08/18 06/07/18 History Levothyroxine Sodium [Synthroid] 137 mcg PO DAILY 06/08/18 06/08/18 06/07/18 History Potassium Chloride [K-Dur] 10 meq PO DAILY 06/08/18 06/08/18 06/07/18 History Pravastatin [Pravachol] 40 mg PO QHS 06/08/18 06/08/18 06/07/18 History ED Physical Exam - General Limitations: No Limitations General appearance: alert, in no apparent distress - Head Head exam: Present: normocephalic - Eye Eye exam: Present: normal appearance, PERRL, EOMI - ENT ENT exam: Present: mucous membranes moist - Neck Neck exam: Present: normal inspection - Respiratory Respiratory exam: Present: normal lung sounds bilaterally - Cardiovascular Cardiovascular Exam: Present: regular rate, tachycardia - GI/Abdominal GI/Abdominal exam: Present: soft, normal bowel sounds, other (OBESE). Absent: tenderness - Rectal Rectal exam: Present: normal rectal tone, heme (+) stool, other (DARK BLACK/PURPLE HUE STOOL OBSERVED) - Extremities Exam Extremities exam: Present: normal inspection - Back Exam Back exam: Present: normal inspection, full ROM - Neurological Exam Neurological exam: Present: alert, oriented X3, normal gait - Psychiatric Psychiatric exam: Present: normal affect, normal mood - Skin Skin exam: Present: warm, dry, intact ED Course Vital Signs 02/18/19 02/18/19 02/18/19 11:03 14:56 15:52 Temperature 98.1 F 98.1 F Pulse Rate 114 H 84 Respiratory 18 17 16 Rate Blood Pressure 138/86 Blood Pressure 124/74 [Left] O2 Sat by Pulse 99 98 Oximetry ED Medical Decision Making - Lab Data Result diagrams: 02/18/19 11:37 02/18/19 11:37 - Radiology Data Radiology results: report reviewed, image reviewed - Medical Decision Making LABS NOTED H/H STABLE NOTE 01/22 AND TODAY STOOL POS STOOL TACHYCARDIA GIVEN 1L NS PRE CT CT NOTED DISCUSSED WITH DR MCCLELLAND DISCUSSED WITH DR PABLO. HE WILL EVALUATE THE PT. Vital Signs 02/18/19 11:03 Temperature 98.1 F Pulse Rate 114 H Respiratory 18 Rate Blood Pressure 138/86 O2 Sat by Pulse 99 Oximetry Lab Results 02/18/19 02/18/19 02/18/19 Range/Units 11:37 11:37 11:37 WBC 10.2 (4.5-11.0) K/mm3 RBC 4.39 (3.65-5.03) M/mm3 Hgb 13.1 (10.1-14.3) gm/dl Hct 37.5 (30.3-42.9) % MCV 85 (79-97) fl MCH 30 (28-32) pg MCHC 35 H (30-34) % RDW 13.9 (13.2-15.2) % Plt Count 307 (140-440) K/mm3 Lymph % (Auto) 26.3 (13.4-35.0) % [place] % (Auto) 4.9 (0.0-7.3) % Eos % (Auto) 1.4 (0.0-4.3) % Baso % (Auto) 0.4 (0.0-1.8) % Lymph # 2.7 (1.2-5.4) K/mm3 [place] # 0.5 (0.0-0.8) K/mm3 Eos # 0.1 (0.0-0.4) K/mm3 Baso # 0.0 (0.0-0.1) K/mm3 Seg Neutrophils % 67.0 (40.0-70.0) % Seg Neutrophils # 6.8 (1.8-7.7) K/mm3 PT 13.8 (12.2-14.9) Sec. INR 1.00 (0.87-1.13) APTT 25.0 (24.2-36.6) Sec. Sodium 141 (137-145) mmol/L Potassium 3.3 L (3.6-5.0) mmol/L Chloride 101.1 (98-107) mmol/L Carbon Dioxide 28 (22-30) mmol/L Anion Gap 15 mmol/L BUN 13 (7-17) mg/dL Creatinine 1.0 (0.7-1.2) mg/dL Estimated GFR > 60 ml/min BUN/Creatinine Ratio 13 % Glucose 151 H (65-100) mg/dL Calcium 8.3 L (8.4-10.2) mg/dL Total Bilirubin 0.50 (0.1-1.2) mg/dL Direct Bilirubin < 0.2 (0-0.2) mg/dL AST 13 (5-40) units/L ALT 14 (7-56) units/L Alkaline Phosphatase 64 (35-129) units/L Total Protein 7.1 (6.3-8.2) g/dL Albumin 4.0 (3.9-5) g/dL Albumin/Globulin Ratio 1.3 % Lipase 71 H (13-60) units/L HCG, Qual (Negative) Urine Color (Yellow) Urine Turbidity (Clear) Urine pH (5.0-7.0) Ur Specific [place] (1.003-1.030) Urine Protein (Negative) mg/dL Urine Glucose (UA) (Negative) mg/dL Urine Ketones (Negative) mg/dL Urine Blood (Negative) Urine Nitrite (Negative) Urine Bilirubin (Negative) Urine Urobilinogen (<2.0) mg/dL Ur Leukocyte Esterase (Negative) Urine WBC (Auto) (0.0-6.0) /HPF Urine RBC (Auto) (0.0-6.0) /HPF U Epithel Cells (Auto) (0-13.0) /HPF Urine Bacteria (Auto) (Negative) /HPF Urine Mucus /HPF Blood Type Antibody Screen 02/18/19 02/18/1919 Range/Units 11:37 11:37 13:04 WBC (4.5-11.0) K/mm3 RBC (3.65-5.03) M/mm3 Hgb (10.1-14.3) gm/dl Hct (30.3-42.9) % MCV (79-97) fl MCH (28-32) pg MCHC (30-34) % RDW (13.2-15.2) % Plt Count (140-440) K/mm3 Lymph % (Auto) (13.4-35.0) % [place] % (Auto) (0.0-7.3) % Eos % (Auto) (0.0-4.3) % Baso % (Auto) (0.0-1.8) % Lymph # (1.2-5.4) K/mm3 [place] # (0.0-0.8) K/mm3 Eos # (0.0-0.4) K/mm3 Baso # (0.0-0.1) K/mm3 Seg Neutrophils % (40.0-70.0) % Seg Neutrophils # (1.8-7.7) K/mm3 PT (12.2-14.9) Sec. INR (0.87-1.13) APTT (24.2-36.6) Sec. Sodium (137-145) mmol/L Potassium (3.6-5.0) mmol/L Chloride (98-107) mmol/L Carbon Dioxide (22-30) mmol/L Anion Gap mmol/L BUN (7-17) mg/dL Creatinine (0.7-1.2) mg/dL Estimated GFR ml/min BUN/Creatinine Ratio % Glucose (65-100) mg/dL Calcium (8.4-10.2) mg/dL Total Bilirubin (0.1-1.2) mg/dL Direct Bilirubin (0-0.2) mg/dL AST (5-40) units/L ALT (7-56) units/L Alkaline Phosphatase (35-129) units/L Total Protein (6.3-8.2) g/dL Albumin (3.9-5) g/dL Albumin/Globulin Ratio % Lipase (13-60) units/L HCG, Qual Negative (Negative) Urine Color Yellow (Yellow) Urine Turbidity Cloudy (Clear) Urine pH 5.0 (5.0-7.0) Ur Specific [place] 1.009 (1.003-1.030) Urine Protein 30 mg/dl (Negative) mg/dL Urine Glucose (UA) Neg (Negative) mg/dL Urine Ketones Neg (Negative) mg/dL Urine Blood Mod (Negative) Urine Nitrite Neg (Negative) Urine Bilirubin Neg (Negative) Urine Urobilinogen < 2.0 (<2.0) mg/dL Ur Leukocyte Esterase Mod (Negative) Urine WBC (Auto) 6.0 (0.0-6.0) /HPF Urine RBC (Auto) 9.0 (0.0-6.0) /HPF U Epithel Cells (Auto) 28.0 H (0-13.0) /HPF Urine Bacteria (Auto) 1+ (Negative) /HPF Urine Mucus Few /HPF Blood Type B POSITIVE Antibody Screen Negative - Differential Diagnosis UGI V LGI BLEED Critical care attestation.: If time is entered above; I have spent that time in minutes in the direct care of this critically ill patient, excluding procedure time. ED Disposition Clinical Impression: History of hypothyroidism, History of cardiomyopathy, Obesity (BMI 30.0-34.9), Diabetes mellitus type 2 in obese, Rectal bleeding, Hypokalemia, Diverticulitis Disposition: 09 OP ADMIT IP TO THIS HOSP Is pt being admited?: Yes Does the pt Need Aspirin: No Condition: Stable Time of Disposition: 15:35
[2019-02-18 13:29] LABS: Bacteria,Urine 1+ /HPF (Negative); Bilirubin,Urine NEG (Negative); Blood,Urine MOD (Negative); Color,Urine Yellow (Yellow); Mucus,Urine FEW /HPF; Urobilinogen,Urine < 2.0 mg/dL (<2.0)
--- NOTE | 2019-02-18 14:39 | Cat Scan Report ---
CT ABDOMEN PELVIS WITH CONTRAST: HISTORY: Abdominal pain, GI bleed, diverticular disease. COMPARISON: 06/08/18. TECHNIQUE: Helical CT in 1.25mm intervals following IV contrast. Sagittal and coronal reconstructions. FINDINGS: Lung bases: Normal. Liver: Normal. Biliary system: Cholecystectomy. No biliary dilatation. Pancreas: Normal. Spleen: Normal. Kidneys/ureters/bladder: Normal. Adrenal glands: Normal. Aorta: Normal. Intestines: There are a few diverticula in the cecum and distal colon. No evidence for acute inflammation. The GI system is within normal limits otherwise given no oral contrast was administered. No obvious site of GI bleeding is demonstrated. Appendix: Normal. Pelvic viscera: A 2.3 cm fibroid is identified at the uterine fundus. The adnexa are unremarkable. Ascites: None. Adenopathy: None. Musculoskeletal: Normal. IMPRESSION: Unremarkable CT scan of the abdomen and pelvis with contrast. Minimal diverticulosis of the colon. Uterine fibroid.
[2019-02-18] MEDS ORDERED: LIDOCAINE VISCOUS 2% PO PRN (16:35)
[2019-02-18] MEDS ORDERED: ALUM-MAG HYDROX-SIMETH 200-200-20MG/5ML PO PRN (16:36)
[2019-02-18] MEDS: PROTONIX IV SCH ×2 (17:46→23:18)
[2019-02-18] MEDS ORDERED: SODIUM CHLORIDE FLUSH SYRINGE 10 ML IV PRN (22:01)
[2019-02-18] MEDS ORDERED: ZOFRAN IV PRN (22:01)
[2019-02-18] MEDS ORDERED: TYLENOL PO PRN (22:01)
[2019-02-18] MEDS ORDERED: REGLAN IV PRN (22:01)
[2019-02-18] MEDS ORDERED: NACL 0.9% 1000 ML 1,000 ML IV SCH (23:00)
[2019-02-18] MEDS ORDERED: PROTONIX IV ONE (23:11)
[2019-02-18] MEDS ORDERED: NACL 0.9% 1000 ML 1,000 ML ONE (23:11)
[2019-02-18 23:56] LABS: Hemoglobin 11.5 gm/dl (10.1-14.3)
--- NOTE | 2019-02-19 05:27 | Event Note ---
Date: 02/18/19 See Dictated H/p in reports Lower GI Bleed Diverticulosis?? GI consult Transfuse if necessary
--- NOTE | 2019-02-19 05:55 | History and Physical Report ---
CHIEF COMPLAINT: Bright red blood per rectum. HISTORY OF PRESENT ILLNESS: A 43-year-old -[place] female with history of lower GI bleed in the past couple of years ago, comes in for her lower GI bleed and pain with bright red blood per rectum. The patient is also feeling lightheaded when she stands. She was admitted here a couple of years ago. She was admitted in May of 2018 and was diagnosed as cecal diverticulitis/diverticulosis. This was in 05/2018. Also, the patient had chronic systolic heart failure at that point in time. This is a recurrence after 05/2018. Some abdominal cramping present. No exacerbating or precipitating factors. PAST MEDICAL HISTORY: Significant for hypertension, congestive heart failure, hypothyroidism and hyperlipidemia. PAST SURGICAL HISTORY: Significant for , thyroidectomy and cholecystectomy. FAMILY HISTORY: No significant family history. SOCIAL HISTORY: Does not smoke. No alcohol, no recreational drugs. CURRENT MEDICATIONS: Coreg 6.25 b.i.d., Lasix 40 mg daily, lisinopril 20 mg once a day, levothyroxine 137 mcg daily, potassium 10 mEq daily and pravastatin 40 mg p.o. at bedtime. REVIEW OF SYSTEMS: Significant for bright red blood per rectum and abdominal pain and lightheadedness. Otherwise, review of systems negative. A 14-point review of systems done. PHYSICAL EXAMINATION: GENERAL: Middle-aged female, lying comfortably. VITAL SIGNS: Blood pressure is 124/74, temperature is 98.1, pulse is 84, respirations are 16, sats are 98%. HEENT: Unremarkable. Pupils are equal and reactive. NECK: Supple, no lymphadenopathy, no thyromegaly. LUNGS: Clear to auscultation and percussion. Good air entry. CARDIOVASCULAR: S1, S2 heard. No gallop, no murmur, no rub. Apical impulse in left fifth intercostal space and midclavicular line. ABDOMEN: Soft and benign. Bowel sounds are normal. Occult blood grossly positive. EXTREMITIES: Good pedal pulses. No pedal edema. CENTRAL NERVOUS SYSTEM: Alert and oriented x 4, nonfocal exam. SKIN: Normal. LABORATORY DATA AND IMAGING STUDIES: Abdominal CAT scan was done, unremarkable CAT scan of the abdomen and pelvis with contrast. Minimal diverticulosis of the colon. Labs are significant for H and H of 14.4 and 41.9, platelet count is 297,000. Potassium is 3.2. Glucose is 141. Troponins are negative. Urine epithelial cells are 28. ASSESSMENT AND PLAN: 1. Lower gastrointestinal bleed. We will get hemoglobin and hematocrit q. 6 hours and transfuse if necessary. GI consult. IV fluids at a very minimal rate because of the patient's congestive heart failure status. IV Protonix 40 mg b.i.d. initiated even though patient has diverticulosis. 2. Congestive heart failure. IV Lasix initiated because of the IV fluids and IV potassium. 3. Hypothyroidism. IV Levothyroxine initiated.Remi switch to PO when she is cleared for oral intake 4. Hypertension. We will hold antihypertensives. Add Catapres patch if necessary. We will hold the Catapres patch for now. 5. Hypokalemia, supplemented. 6. Deep venous thrombosis prophylaxis, SCDs only. No Lovenox because of the GI bleed. JOB# [id number] FELICIA/ADEN ELIZABETH
[2019-02-19] MEDS ORDERED: KCL 10MEQ/100ML 10 MEQ/100 ML BAG IV ONE (06:20)
[2019-02-19] MEDS ORDERED: LASIX ONE (06:21)
[2019-02-19] MEDS ORDERED: NACL 0.9% 1000 ML 0 ML ONE (06:33)
[2019-02-19] MEDS: LASIX IV SCH (06:41)
[2019-02-19] MEDS: KCL 10MEQ/100ML 10 MEQ/100 ML BAG IV SCH ×4 (06:41→15:36)
[2019-02-19 08:53] LABS: Basophils % (Auto) 0.3 % (0.0-1.8); Eosinophils # (Auto) 0.1 K/mm3 (0.0-0.4); Hematocrit 28.4 % (30.3-42.9); Lymphocytes # (Auto) 2.3 K/mm3 (1.2-5.4); Lymphocytes % (Auto) 21.7 % (13.4-35.0); Mean Corpuscular HGB Conc 35 % (30-34); Mean Corpuscular Volume 87 fl (79-97); Monocytes # (Auto) 0.5 K/mm3 (0.0-0.8); Platelet Count 252 K/mm3 (140-440); Red Blood Count 3.29 M/mm3 (3.65-5.03); Red Cell Distribution Width 13.9 % (13.2-15.2)
[2019-02-19 09:07] LABS: Alanine Aminotransferase 13 units/L (7-56); Albumin 3.3 g/dL (3.9-5); BUN/Creatinine Ratio 16; Blood Urea Nitrogen 11 mg/dL (7-17); Calcium 7.2 mg/dL (8.4-10.2); Hemolysis Index 3
[2019-02-19 10:39] LABS: Hematocrit 29.7 % (30.3-42.9); Hemoglobin 10.3 gm/dl (10.1-14.3)
[2019-02-19] MEDS ORDERED: KCL 10MEQ/100ML 30 MEQ/300 ML BAG IV ONE (12:14)
[2019-02-19] MEDS ORDERED: NACL 0.9% 500 ML 500 ML ONE (12:15)
[2019-02-19] MEDS: SODIUM CHLORIDE FLUSH SYRINGE 10 ML IV SCH ×2 (12:18→23:34)
[2019-02-19] MEDS: SYNTHROID IV SCH (12:20)
[2019-02-19] MEDS ORDERED: NACL 0.9% 1000 ML 1,000 ML ONE (14:30)
--- NOTE | 2019-02-19 14:40 | Gastroenterology Consultation ---
History of Present Illness - Reason for Consult Consult date: 02/19/19 GI bleed Requesting physician: NNAMDI PABLO - History of Present Illness This is a 43 yo female with known cecal diverticulosis presenting to the ED for 1 day h/o melena and bloody stool. She reports having black tarry stools at midnight last night and also blood with blood clots in the stool overnight. She has lower and epigastric abdominal pain. Nausea/vomiting or fever. She was admitted for similar presentation in 2018 and was found to have cecal diverticulitis. Treated with antibiotics. She did not follow up outpatient for colonoscopy. No family hx of CRC. Past History Past Medical History: heart failure, hypertension, hyperlipidemia Past Surgical History: denies: bowel surgery Social history: no significant social history Medications and Allergies Allergies Allergy/AdvReac Type Severity Reaction Status Date / Time No Known Allergies Allergy Unverified 06/22/15 09:13 Home Medications Medication Instructions Recorded Confirmed Last Taken Type Carvedilol 6.25 mg PO BID 06/30/16 02/18/19 06/07/18 History Furosemide 40 mg PO DAILY 06/30/16 02/18/19 06/07/18 History Lisinopril 40 mg PO DAILY 06/30/16 02/18/19 06/07/18 History Levothyroxine Sodium [Synthroid] 137 mcg PO DAILY 06/08/18 02/18/19 06/07/18 History Potassium Chloride [K-Dur] 10 meq PO BID 06/08/18 02/18/19 06/07/18 History Pravastatin [Pravachol] 40 mg PO QHS 06/08/18 02/18/19 06/07/18 History Active Meds: Active Medications Acetaminophen (Tylenol) 650 mg PO Q4H PRN PRN Reason: Pain MILD(1-3)/Fever >100.5/CASTILLO Al Hydrox/Mg Hydrox/Simethicone (Alum-Mag Hydrox-Simeth [id number]/5ml) 15 ml PO Q8H PRN PRN Reason: Pain , Severe (7-10) Furosemide (Lasix) 40 mg IV 0600 FERNANDEZ Last Admin: 02/19/19 06:41 Dose: 40 mg Documented by: Hydromorphone HCl (Dilaudid) 0.5 mg IV Q3H PRN PRN Reason: Pain , Severe (7-10) Levothyroxine Sodium (Synthroid) 100 mcg IV DAILY@0600 [facility] Last Admin: 02/19/19 12:20 Dose: 100 mcg Documented by: Lidocaine HCl (Lidocaine Viscous 2%) 15 ml PO Q8H PRN PRN Reason: Pain , Severe (7-10) Metoclopramide HCl (Reglan) 10 mg IV Q6H PRN PRN Reason: Nausea And Vomiting Ondansetron HCl (Zofran) 4 mg IV Q8H PRN PRN Reason: Nausea And Vomiting Pantoprazole Sodium (Protonix) 40 mg IV BID [facility] Last Admin: 02/18/19 23:18 Dose: 40 mg Documented by: Sodium Chloride (Sodium Chloride Flush Syringe 10 Ml) 10 ml IV BID [facility] Last Admin: 02/19/19 12:18 Dose: 10 ml Documented by: Sodium Chloride (Sodium Chloride Flush Syringe 10 Ml) 10 ml IV PRN PRN PRN Reason: LINE FLUSH Review of Systems - Review of Systems Constitutional: no weight loss, no weight gain Eyes: deferred Ears, Nose, Throat: deferred Cardiovascular: no chest pain Respiratory: no cough Gastrointestinal: abdominal pain, BRBPR, melena, hematochezia, no nausea, no vomiting, no diarrhea Musculoskeletal: no gait dysfunction Integumentary: deferred Neurological: no head injury Psychiatric: no anxiety Allergic/Immunologic: no wheezing Exam - Constitutional Vital Signs: Temp Pulse Resp BP Pulse Ox 98.7 F 92 H 20 112/74 100 02/19/19 03:00 02/19/19 03:00 02/19/19 03:00 02/19/19 03:00 02/19/19 03:00 General appearance: no acute distress, well-nourished - EENT Eyes: PERRL ENT: hearing intact, clear oral mucosa, dentition normal - Neck Neck: supple, normal ROM, no masses or JVD - Respiratory Respiratory effort: normal Respiratory: bilateral: CTA - Breasts Breasts: deferred - Cardiovascular Rhythm: regular Heart Sounds: Present: S1 & S2. Absent: gallop, rub Extremities: pulses intact, No edema, normal color, Full ROM - Gastrointestinal General gastrointestinal: Present: soft, tender, non-distended, normal bowel s ounds. Absent: rigid - Integumentary Integumentary: Present: clear, warm, dry - Neurologic Neurological: alert and oriented x3 - Psychiatric Psychiatric: appropriate mood/affect, intact judgment & insight, memory intact - Labs CBC & Chem 7: 02/19/19 10:24 02/19/19 08:17 Lab Results: Laboratory Results - last 24 hr 02/18/19 02/18/19 02/19/19 23:08 23:08 08:17 WBC 10.4 RBC 3.29 L Hgb 11.5 10.0 L Hct 33.0 28.4 L MCV 87 MCH 31 MCHC 35 H RDW 13.9 Plt Count 252 Lymph % (Auto) 21.7 [place] % (Auto) 5.0 Eos % (Auto) 1.0 Baso % (Auto) 0.3 Lymph # 2.3 [place] # 0.5 Eos # 0.1 Baso # 0.0 Seg Neutrophils % 72.0 H Seg Neutrophils # 7.5 Sodium Potassium Chloride Carbon Dioxide Anion Gap BUN Creatinine Estimated GFR BUN/Creatinine Ratio Glucose Hemoglobin A1c 6.0 Calcium Total Bilirubin AST ALT Alkaline Phosphatase Total Protein Albumin Albumin/Globulin Ratio 02/19/19 02/19/19 08:17 10:24 WBC RBC Hgb 10.3 Hct 29.7 L MCV MCH MCHC RDW Plt Count Lymph % (Auto) [place] % (Auto) Eos % (Auto) Baso % (Auto) Lymph # [place] # Eos # Baso # Seg Neutrophils % Seg Neutrophils # Sodium 143 Potassium 3.0 L Chloride 104.3 Carbon Dioxide 28 Anion Gap 14 BUN 11 Creatinine 0.7 Estimated GFR > 60 BUN/Creatinine Ratio 16 Glucose 151 H Hemoglobin A1c Calcium 7.2 L Total Bilirubin 0.50 AST 10 ALT 13 Alkaline Phosphatase 51 Total Protein 5.7 L Albumin 3.3 L Albumin/Globulin Ratio 1.4 - Imaging CT Scan: image reviewed Assessment and Plan # GI bleed May be either upper or lower GI bleed given h/o melena and bright red blood per rectum. Reviewed CT imaging showing cecal diverticulosis without signs of divert iculitis. H/H decreased from her prior baseline. Rec: - will plan for EGD/colonoscopy tomorrow. - clear liquid diet now and NPO MN. - Golytely prep overnight. - monitor H/H. - avoid NSAIDs. - will follow.
[2019-02-19] MEDS ORDERED: GOLYTELY PO ONE (16:00)
[2019-02-19 16:36] LABS: Hematocrit 26.8 % (30.3-42.9); Hemoglobin 9.6 gm/dl (10.1-14.3)
--- NOTE | 2019-02-19 16:37 | Progress Note ---
Assessment and Plan Acute lower GI bleed - Could be from diverticulosis versus hemorrhoids - Continue to monitor H&H, transfuse if hemoglobin less than 7 - GI has been consulted, started clear liquid diet now, continue IV fluid - Planned for EGD and colonoscopy tomorrow, continue PPI - CT abdomen and pelvis showed no acute process Hypokalemia, likely due to GI loss, and continue to replete and monitor History of diverticulosis - CT abdomen and pelvis showed no sign of diverticulitis - Continue supportive care, clear liquid diet, IV fluid hydration Obesity, dietary advice when medically stable Chronic issues: Hypertension Hyperlipidemia CHF, without exacerbation and EF 30-35% Hypothyroidism - Continue to provide supportive care and home medications DVT prophylaxis, SCD Brief history: Brief history: This is a 43-year-old -[place] female with history of CHF, EF 30-35% based on echo 05/2018, hypothyroidism, hypertension, hyperlipidemia, lower GI bleed in the past came into the ER with the complaints of bright red blood per rectum for 1 day. She was admitted in May 2018 and was diagnosed with cecal diverticulitis/diverticulosis. Patient was placed on IV with hydration, GI consulted. She was admitted for further evaluation and management. Physical exam: GENERAL: well-developed and obese -[place] female lying on bed appeared to be in no discomfort. HEENT: Normocephalic. Atraumatic. No conjunctival congestion or icterus. Patient has moist mucous membranes. NECK: Supple. Trachea midline. CHEST/LUNGS: Clear to auscultated bilaterally, breathing nonlabored. No wheezes crackles or rhonchi. HEART/CARDIOVASCULAR: Regular in rate and rhythm. S1 and S2 positive. ABDOMEN: Abdomen is soft, nontender. Patient has normal bowel sounds. SKIN: There is no rash. Warm and dry. NEURO: No focal motor deficit. Follows command. MUSCULOSKELETAL: No joint effusion or tenderness. EXTRIMITY: No edema, no cyanosis or clubbing. PSYCH: Cooperative. Subjective Date of service: 02/19/19 Interval history: Patient seen and examined. Medical records and medication list reviewed. No acute event overnight noted by the RN. Patient denies any chest pain or difficulty breathing. Patient denies any a bdominal pain Had another episode of bloody bowel movement early this morning Discussed plan of care at bedside with patient. Objective - Constitutional Vitals: Vital Signs - 12hr 02/19/19 15:11 Temperature 98.3 F Pulse Rate 90 Respiratory 20 Rate Blood Pressure 129/83 [Left] O2 Sat by Pulse 99 Oximetry - Labs CBC & Chem 7: 02/21/19 05:22 02/21/19 05:22 Labs: Abnormal lab results 02/19/19 02/19/19 02/19/19 Range/Units 08:17 08:17 10:24 RBC 3.29 L (3.65-5.03) M/mm3 Hgb 10.0 L (10.1-14.3) gm/dl Hct 28.4 L 29.7 L (30.3-42.9) % MCHC 35 H (30-34) % Seg Neutrophils % 72.0 H (40.0-70.0) % Potassium 3.0 L (3.6-5.0) mmol/L Glucose 151 H (65-100) mg/dL Calcium 7.2 L (8.4-10.2) mg/dL Total Protein 5.7 L (6.3-8.2) g/dL Albumin 3.3 L (3.9-5) g/dL 02/19/19 Range/Units 16:25 RBC (3.65-5.03) M/mm3 Hgb 9.6 L (10.1-14.3) gm/dl Hct 26.8 L (30.3-42.9) % MCHC (30-34) % Seg Neutrophils % (40.0-70.0) % Potassium (3.6-5.0) mmol/L Glucose (65-100) mg/dL Calcium (8.4-10.2) mg/dL Total Protein (6.3-8.2) g/dL Albumin (3.9-5) g/dL
[2019-02-19] MEDS ORDERED: DILAUDID ONE (16:50)
[2019-02-19] MEDS ORDERED: PROTONIX IV ONE (16:51)
[2019-02-19] MEDS: DILAUDID IV PRN (17:45)
[2019-02-19] MEDS ORDERED: DULCOLAX PO ONE ×2 (18:00→23:20)
[2019-02-19] MEDS: PROTONIX IV SCH ×2 (18:03→23:23)
[2019-02-19] MEDS ORDERED: REGLAN ONE ×2 (18:28→18:29)
[2019-02-20] MEDS: DILAUDID IV PRN ×2 (00:08→23:15)
[2019-02-20] MEDS: LASIX IV SCH (05:52)
[2019-02-20] MEDS: SYNTHROID IV SCH (05:53)
--- NOTE | 2019-02-20 07:38 | Anesthesia Consultation ---
Anesthesia Consult and Med Hx Date of service: 02/20/19 - Airway Anesthetic Teeth Evaluation: Good ROM Head & Neck: Adequate Mental/Hyoid Distance: Adequate Mallampati Class: Class I Intubation Access Assessment: Possibly Difficult (Prior trach in 2007. Per patient, the surgical team was unable to fit a small ETT due to prior thyroid mass.) - Pulmonary Exam CTA: Yes - Cardiac Exam Cardiac Exam: RRR - Pre-Operative Health Status ASA Pre-Surgery Classification: ASA4 Proposed Anesthetic Plan: MAC - Pre-Anesthesia Comment Pre-Anesthesia Comments: Hx of chronic systolic heart failure, per patient EF: 34%. ECHO performed last year in 2018 - Pulmonary Hx Asthma: No SOB: Yes (Feels lightheaded when standing up ) COPD: No Hx Pneumonia: No - Cardiovascular System Hx Hypertension: Yes - Central Nervous System Hx Psychiatric Problems: No - Endocrine Hx End Stage Renal Disease: No Hx Hypothyroidism: Yes - Other Systems Hx Cancer: No
--- NOTE | 2019-02-20 07:38 | Anesthesia Day of Surgery ---
Anesthesia Day of Surgery - Day of Surgery Patient Examined: Yes Patient H&P Reviewed: Yes Patient is NPO: Yes Beta Blockers: No (Did not recieve morning meds )
[2019-02-20] MEDS: PROTONIX IV SCH ×2 (09:41→23:11)
[2019-02-20] MEDS: SODIUM CHLORIDE FLUSH SYRINGE 10 ML IV SCH ×2 (09:42→23:11)
[2019-02-20 11:29] LABS: Hematocrit 28.7 % (30.3-42.9); Hemoglobin 10.1 gm/dl (10.1-14.3)
[2019-02-20] MEDS ORDERED: NACL 0.9% 1000 ML 1,000 ML IV SCH (13:00)
[2019-02-20] MEDS ORDERED: AMIDATE IV ONE (13:07)
[2019-02-20] MEDS ORDERED: KETALAR ONE (13:37)
[2019-02-20] MEDS ORDERED: VERSED IV ONE (13:39)
[2019-02-20] MEDS ORDERED: SUBLIMAZE ONE (13:39)
[2019-02-20] MEDS ORDERED: DIPRIVAN 10 MG/ML IV ONE (13:40)
[2019-02-20] MEDS ORDERED: WATER FOR IRRIG STERILE IR ONE (13:52)
--- NOTE | 2019-02-20 14:24 | Operative Report ---
Operative Report Operative Report: DATE OF SERVICE: 02/20/2019 SURGEON: Brady Guevara MD (Jenny) EGD Report PREOPERATIVE DIAGNOSIS and POSTOPERATIVE DIAGNOSIS: melena, anemia ESTIMATED BLOOD LOSS: minimal DESCRIPTION OF PROCEDURE: A high-resolution EGD scope was passed through the oropharynx, esophagus, stomach, and second portion of duodenum. The scope was carefully withdrawn. Retroflexion was performed in the stomach. At the end of the procedure, the scope was cleaned using normal technique. Vital signs monitored continuously throughout. SEDATION: MAC, per anesthesia records. COMPLICATIONS: None. FINDINGS: * Normal duodenum. * Gastritis in the antrum with erythematous mucosa. Biopsies were obtained. . * Z line was regular and located at 40 cm from the incisors * Normal esophagus exam. * Remainder of the exam was normal RECOMMENDATIONS: * Change PPI to PO once daily. * Follow up pathology results. * Proceed with colonoscopy.
--- NOTE | 2019-02-20 14:44 | Operative Report ---
Operative Report Operative Report: Date of procedure: 02/20/2019 Preprocedure diagnosis: rectal bleeding, hematochezia Post procedure diagnosis: diverticulosis without active bleeding, internal hemorrhoids. Procedure: Colonoscopy to the cecum Endoscopist: Brady Guevara MD Anesthesia: Monitored anesthesia care per anesthesia department Estimated blood loss: minimal Medications: Monitored anesthesia care. See separate report by anesthesia for details. After careful discussion of the nature and purpose of the procedure as well as details of the technique risks benefits and alternatives the patient gave consent. Please see recent history and physical from the office. The patient was placed in the left lateral decubitus position and medicated per anesthesia. A rectal exam was performed sphincter tone was normal there were no masses palpable. The [employer] 570 scope was passed transanally and advanced under continuous d irect vision without difficulty to the cecum. The prep quality was fair. Findings: 1. There were a few small to medium size diverticula in the ascending and transverse colon without any focal area of active bleeding. 2. No old blood noted but there small amount of maroon colored stool balls noted. 3. Mild internal hemorrhoids on retroflexion view. The procedure was well-tolerated overall and the patient was observed in recovery. Conclusions: 1. Right sided diverticulosis without focal area of active bleeding. Likely diverticular bleed which has stopped. 2. Mild internal hemorrhoids. Plan: 1. Monitor H/H. if signs of active recurrent bleeding, recommend CT angio or bleeding scan. 2. Resume diet. 3. Will follow.
--- NOTE | 2019-02-20 16:28 | Progress Note ---
Assessment and Plan Acute lower GI bleed - Continue to monitor H&H, transfuse if hemoglobin less than 7 - GI has been consulted, CT abdomen and pelvis showed no acute process - s/p EGD, which showed mild antral gastritis and colonoscopy showing right sided diverticulosis without active bleeding. - Suspect diverticular bleed which has stopped. - No signs of active recurrent GI bleeding - Continue to advance diet, if H&H is stable possible discharge tomorrow Hypokalemia, likely due to GI loss, and continue to replete and monitor History of diverticulosis - CT abdomen and pelvis showed no sign of diverticulitis - Continue supportive care, advance diet, IV fluid hydration Obesity, dietary advice when medically stable Chronic issues: Hypertension Hyperlipidemia CHF, without exacerbation and EF 30-35% Hypothyroidism - Continue to provide supportive care and home medications DVT prophylaxis, SCD Brief history: Brief history: This is a 43-year-old -German female with history of CHF, EF 30-35% based on echo 05/2018, hypothyroidism, hypertension, hyperlipidemia, lower GI bleed in the past came into the ER with the complaints of bright red blood per rectum for 1 day. She was admitted in May 2018 and was diagnosed with cecal diverticulitis/diverticulosis. Patient was placed on IV with hydration, GI consulted. She was admitted for further evaluation and management. Physical exam: GENERAL: well-developed and obese -German female lying on bed appeared to be in no discomfort. HEENT: Normocephalic. Atraumatic. No conjunctival congestion or icterus. Patient has moist mucous membranes. NECK: Supple. Trachea midline. CHEST/LUNGS: Clear to auscultated bilaterally, breathing nonlabored. No wheezes crackles or rhonchi. HEART/CARDIOVASCULAR: Regular in rate and rhythm. S1 and S2 positive. ABDOMEN: Abdomen is soft, nontender. Patient has normal bowel sounds. SKIN: There is no rash. Warm and dry. NEURO: No focal motor deficit. Follows command. MUSCULOSKELETAL: No joint effusion or tenderness. EXTRIMITY: No edema, no cyanosis or clubbing. PSYCH: Cooperative. Subjective Date of service: 02/20/19 Interval history: Patient seen and examined. Medical records and medication list reviewed. No acute event overnight noted by the RN. Patient denies any chest pain or difficulty breathing. Patient denies any abdominal pain Status post EGD and colonoscopy today, tolerating diet Discussed plan of care at bedside with patient. Objective - Constitutional Vitals: Vital Signs - 12hr 02/20/19 02/20/19 02/20/19 04:54 12:40 12:43 Temperature 98.1 F 98.2 F 98.2 F Pulse Rate 82 94 H 94 H Respiratory 19 12 12 Rate Blood Pressure 113/67 136/86 136/86 O2 Sat by Pulse 98 100 100 Oximetry 02/20/19 02/20/19 02/20/19 14:26 14:40 14:49 Temperature 98.6 F Pulse Rate 93 H 86 88 Respiratory 17 17 14 Rate Blood Pressure 137/85 131/84 143/92 O2 Sat by Pulse 98 100 100 Oximetry 02/20/19 14:55 Temperature Pulse Rate 87 Respiratory 16 Rate Blood Pressure 142/90 O2 Sat by Pulse 100 Oximetry - Labs CBC & Chem 7: 02/21/19 05:22 02/21/19 05:22 Labs: Abnormal lab results 02/19/19 02/20/19 02/20/19 Range/Units 16:25 11:01 12:06 Hgb 9.6 L (10.1-14.3) gm/dl Hct 26.8 L 28.7 L (30.3-42.9) % Potassium 3.2 L (3.6-5.0) mmol/L
[2019-02-21] MEDS: SYNTHROID IV SCH ×2 (05:03→05:07)
[2019-02-21] MEDS: LASIX IV SCH (05:09)
[2019-02-21 05:58] LABS: Basophils % (Auto) 0.3 % (0.0-1.8); Eosinophils % (Auto) 0.2 % (0.0-4.3); Hematocrit 29.1 % (30.3-42.9); Hemoglobin 10.2 gm/dl (10.1-14.3); Lymphocytes # (Auto) 1.5 K/mm3 (1.2-5.4); Mean Corpuscular HGB Conc 35 % (30-34); Mean Corpuscular Volume 87 fl (79-97); Monocytes # (Auto) 0.7 K/mm3 (0.0-0.8); Monocytes % (Auto) 5.4 % (0.0-7.3); Platelet Count 291 K/mm3 (140-440); Red Blood Count 3.34 M/mm3 (3.65-5.03); Red Cell Distribution Width 14.1 % (13.2-15.2)
[2019-02-21 06:26] LABS: BUN/Creatinine Ratio 14; Blood Urea Nitrogen 11 mg/dL (7-17); Calcium 8.3 mg/dL (8.4-10.2); Hemolysis Index 38
--- NOTE | 2019-02-21 09:49 | Gastroenterology Progress Note ---
Assessment and Plan # GI bleed Reviewed CT imaging showing cecal diverticulosis without signs of diverticulitis. H/H stable s/p EGD, which showed mild antral gastritis and colonoscopy showing right sided diverticulosis without active bleeding. Suspect diverticular bleed which has stopped. No signs of active recurrent GI bleeding. Rec: - ok for discharge today per GI standpoint. - follow up outpatient clinic in 2-3 weeks. - avoid constipation. - high fiber diet. Subjective Date of service: 02/21/19 Interval history: Patient underwent EGD and colonoscopy yesterday. No bowel movement overnight. No abdominal pain. Objective - Constitutional Vitals: Temp Pulse Resp BP Pulse Ox 97.5 F L 92 H 18 138/72 100 02/21/19 05:31 02/21/19 05:31 02/21/19 05:31 02/21/19 05:31 02/21/19 05:31 - EENT ENT: hearing intact, clear oral mucosa, dentition normal - Neck Neck: supple, normal ROM - Respiratory Respiratory effort: normal Respiratory: bilateral: CTA - Cardiovascular Rhythm: regular - Extremities Extremities: pulses intact, No edema, normal color, Full ROM - Gastrointestinal General gastrointestinal: Present: soft, non-tender, non-distended, normal bowel sounds - Integumentary Integumentary: Present: clear, warm, dry - Neurologic Neurological: alert and oriented x3 - Labs CBC & Chem 7: 02/21/19 05:22 02/21/19 05:22 Labs: Laboratory Results - last 24 hr 02/20/19 02/20/19 02/21/19 11:01 12:06 05:22 WBC 12.7 H RBC 3.34 L Hgb 10.1 10.2 Hct 28.7 L 29.1 L MCV 87 MCH 30 MCHC 35 H RDW 14.1 Plt Count 291 Lymph % (Auto) 12.0 L Bulloch % (Auto) 5.4 Eos % (Auto) 0.2 Baso % (Auto) 0.3 Lymph # 1.5 Bulloch # 0.7 Eos # 0.0 Baso # 0.0 Seg Neutrophils % 82.1 H Seg Neutrophils # 10.5 H Sodium Potassium 3.2 L Chloride Carbon Dioxide Anion Gap BUN Creatinine Estimated GFR BUN/Creatinine Ratio Glucose Calcium 02/21/19 05:22 WBC RBC Hgb Hct MCV MCH MCHC RDW Plt Count Lymph % (Auto) Bulloch % (Auto) Eos % (Auto) Baso % (Auto) Lymph # Bulloch # Eos # Baso # Seg Neutrophils % Seg Neutrophils # Sodium 140 Potassium 3.6 Chloride 97.6 L Carbon Dioxide 27 Anion Gap 19 BUN 11 Creatinine 0.8 Estimated GFR > 60 BUN/Creatinine Ratio 14 Glucose 159 H Calcium 8.3 L D
[2019-02-21] MEDS ORDERED: PROTONIX PO SCH (10:15)
[2019-02-21] MEDS: SODIUM CHLORIDE FLUSH SYRINGE 10 ML IV SCH (10:24)
[2019-02-21] MEDS: PROTONIX IV SCH (10:24)
[2019-02-21 11:38] VITALS: BP 135/70
--- NOTE | 2019-02-21 13:50 | Discharge Summary ---
Providers - Providers Date of Admission: 02/18/19 16:33 Date of discharge: 02/21/19 Attending physician: LISHA CAMPOS 02/18/19 22:01 Consult to Physician [CONS] Routine Comment: OFFICE NOTIFIED SABAS [id number] Consulting Provider: PAULA HDZ Physician Instructions: Reason For Exam: GI Bleed Primary care physician: [facility], MD Hospitalization Reason for admission: rectal bleeding Condition: Stable Pertinent studies: CT abdomen and pelvis: Unremarkable CT scan of the abdomen and pelvis with contrast. Minimal diverticulosis of the colon. Uterine fibroid. Hospital course: Brief history: Brief history: This is a 43-year-old -Cub[place] female with history of CHF, EF 30-35% based on echo 05/2018, hypothyroidism, hypertension, hyperlipidemia, lower GI bleed in the past came into the ER with the complaints of bright red blood per rectum for 1 day. She was admitted in May 2018 and was diagnosed with cecal diverticulitis/diverticulosis. Patient was placed on IV with hydration, GI consulted. She was admitted for further evaluation and management. Discharge diagnosis and management Acute lower GI bleed -Patient was monitored with serial H&H and that has been remained stable - GI has been consulted, CT abdomen and pelvis showed no acute process - s/p EGD, which showed mild antral gastritis and colonoscopy showing right sided diverticulosis without active bleeding. - Suspect diverticular bleed which has stopped. - No signs of active recurrent GI bleeding -Tolerated advance diet, H&H is stable and GI cleared for discharge with outpatient follow-up Hypokalemia, likely due to GI loss, repleted and monitored History of diverticulosis - CT abdomen and pelvis showed no sign of diverticulitis - Continued supportive care, advanced diet, placed on IV fluid hydration Obesity, dietary advice given Chronic issues: Hypertension Hyperlipidemia CHF, without exacerbation and EF 30-35% Hypothyroidism - Provided supportive care and resumed home medications DVT prophylaxis, SCD Physical exam: GENERAL: well-developed and obese -Cub[place] female lying on bed appeared to be in no discomfort. HEENT: Normocephalic. Atraumatic. No conjunctival congestion or icterus. Patient has moist mucous membranes. NECK: Supple. Trachea midline. CHEST/LUNGS: Clear to auscultated bilaterally, breathing nonlabored. No wheezes crackles or rhonchi. HEART/CARDIOVASCULAR: Regular in rate and rhythm. S1 and S2 positive. ABDOMEN: Abdomen is soft, nontender. Patient has normal bowel sounds. SKIN: There is no rash. Warm and dry. NEURO: No focal motor deficit. Follows command. MUSCULOSKELETAL: No joint effusion or tenderness. EXTRIMITY: No edema, no cyanosis or clubbing. PSYCH: Cooperative. Disposition: DC-01 TO HOME OR SELFCARE Time spent for discharge: 34 minutes Core Measure Documentation - Palliative Care Palliative Care/ Comfort Measures: Not Applicable - Core Measures Any of the following diagnoses?: none Exam - Constitutional Vitals: Temp Pulse Resp BP Pulse Ox 98.1 F 96 H 20 135/70 100 02/21/19 11:16 02/21/19 11:16 02/21/19 11:16 02/21/19 11:16 02/21/19 11:16 Plan Activity: advance as tolerated Weight Bearing Status: Weight Bear as Tolerated Diet: low fat, low salt, other (high-fiber diet) Follow up with: LANETTE NEVAREZ MD [Primary Care Provider] - 3-5 Days MIN,PAULA SHAW MD [Staff Physician] - 7 Days Forms: Work/School Release Form
[2019-02-21] MEDS ORDERED: ZESTRIL PO SCH (15:00)
[2019-02-21] MEDS ORDERED: K-DUR PO SCH (22:00)
[2019-02-21] MEDS ORDERED: PRAVACHOL PO SCH (22:00)
[2019-02-21] MEDS ORDERED: COREG PO SCH ×3 (22:00)
[2019-02-22] MEDS ORDERED: SYNTHROID PO SCH ×2 (06:00)
[2019-02-22] MEDS ORDERED: ZESTRIL PO SCH (10:00)
[2019-02-22] MEDS ORDERED: LASIX PO SCH (10:00)
[2019-02-22] MEDS ORDERED: NON-FORMULARY (Levothyroxine Sodium [Synthroid] 137 MCG) PO SCH (10:00)
== END 2019-02-21 15:35 | disposition home or self-care (01) ==
LOC: ED 10:52 → 4A 16:33 → 3A 22:44
PROVIDERS: ADMIT Internal Medicine; ATTEND Internal Medicine
DX: K57.90 Diverticulosis of intestine, part unspecified, without perforation or abscess without bleeding (principal); K64.8 Other hemorrhoids; K62.5 Hemorrhage of anus and rectum; K92.1 Melena; D64.9 Anemia, unspecified; K92.2 Gastrointestinal hemorrhage, unspecified; I11.0 Hypertensive heart disease with heart failure; I50.9 Heart failure, unspecified; E03.9 Hypothyroidism, unspecified; E87.6 Hypokalemia; E78.5 Hyperlipidemia, unspecified; Z90.49 Acquired absence of other specified parts of digestive tract; Z98.890 Other specified postprocedural states; Z79.899 Other long term (current) drug therapy
CPT/HCPCS: 36415; 45378; 74177; 80048; 80053; 80076; 81001; 82271; 83036; 83690; 84132; 84703; 85014; 85018; 85025; 85610; 85730; 86850; 86900; 86901; 88305; 88342; 96365; 96366; 96375; 96376; 99284; C9113; G0378; J1170; J1940; J2250; J2704; J2765; J3010; J3480; J7030; J7040; Q9967

== ENCOUNTER 2019-02-21 18:09 | Inpatient (IN) | payer SELFPAY ==
--- NOTE | 2019-02-21 18:33 | Emergency Department Report ---
Blank Doc - Documentation Documentation: This is a 43-year-old female that presents with GI bleed symptoms. Patient st ated has just discharged from same symptoms but her GI provider told patient to come back. This initial assessment/diagnostic orders/clinical plan/treatment(s) is/are subject to change based on patient's health status, clinical progression and re- assessment by fellow clinical providers in the ED. Further treatment and workup at subsequent clinical providers discretion. Patient/guardians urged not to elope from the ED as their condition may be serious if not clinically assessed and managed. Initial orders include: 1- Patient sent to MAIN ED for further evaluation and treatment 2- labs 3- UA
[2019-02-21 19:20] LABS: INR 0.95 (0.87-1.13)
[2019-02-21 19:22] LABS: Hematocrit 27.6 % (30.3-42.9); Hemoglobin 9.6 gm/dl (10.1-14.3); Mean Corpuscular HGB Conc 35 % (30-34); Mean Corpuscular Volume 87 fl (79-97); Platelet Count 357 K/mm3 (140-440); Red Blood Count 3.18 M/mm3 (3.65-5.03); Red Cell Distribution Width 14.1 % (13.2-15.2)
[2019-02-21 19:42] LABS: Alanine Aminotransferase 14 units/L (7-56); Albumin 3.9 g/dL (3.9-5); BUN/Creatinine Ratio 11; Blood Urea Nitrogen 17 mg/dL (7-17); Calcium 8.2 mg/dL (8.4-10.2); Hemolysis Index 0
[2019-02-21 19:51] LABS: Bilirubin,Direct < 0.2 mg/dL (0-0.2)
[2019-02-21 20:22] LABS: RBC Morphology Normal; Total Cells Counted 100
--- NOTE | 2019-02-21 21:29 | Emergency Department Report ---
ED GI Bleed HPI - General Chief complaint: GI Bleed Stated complaint: BLEEDING FROM BOWEL Time Seen by Provider: 02/21/19 18:32 Source: patient Mode of arrival: Ambulatory Limitations: No Limitations - History of Present Illness Initial comments: 43-year-old female presents to the ED with complaint of rectal bleeding. Patient was discharged from this facility earlier this afternoon following a workup for GI bleeding. Patient states she underwent colonoscopy and upper endoscopy, states that diverticulosis was found. No transfusion required during ED stay. Patient says upon discharge her bleeding hasn't resolved, however since leaving, patient has had 5 episodes of rectal bleeding. Patient reports only mild abdominal cramping, nausea, no vomiting. MD complaint: gross hematochezia -: This afternoon Location: diffuse Radiation: none Severity scale (0 -10): 10 Quality: cramping Consistency: intermittent Improves with: none Worsens with: none Context: history of GI bleed Associated Symptoms: abdominal pain, nausea. denies: vomiting, fever/chills - Related Data Home Medications Medication Instructions Recorded Confirmed Last Taken Carvedilol 6.25 mg PO BID 06/30/16 02/21/19 06/07/18 Furosemide 40 mg PO DAILY 06/30/16 02/21/19 06/07/18 Lisinopril 40 mg PO DAILY 06/30/16 02/21/19 06/07/18 Levothyroxine Sodium [Synthroid] 137 mcg PO DAILY 06/08/18 02/21/19 06/07/18 Potassium Chloride [K-Dur] 10 meq PO BID 06/08/18 02/21/19 06/07/18 Pravastatin [Pravachol] 40 mg PO QHS 06/08/18 02/21/19 06/07/18 Allergies Allergy/AdvReac Type Severity Reaction Status Date / Time No Known Allergies Allergy Verified 02/21/19 18:11 ED Review of Systems ROS: Stated complaint: BLEEDING FROM BOWEL Other details as noted in HPI Comment: All other systems reviewed and negative Constitutional: denies: chills, fever Gastrointestinal: abdominal pain, nausea, hematochezia. denies: vomiting, diarrhea ED Past Medical Hx - Past Medical History Hx Hypertension: Yes Hx Congestive Heart Failure: Yes Hx Diabetes: No Hx Asthma: No Hx COPD: No Hx HIV: No Additional medical history: hypothyroid, high cholesterol, low potassium, migraines (used to take Imitrex) - Surgical History Hx Cholecystectomy: Yes Additional Surgical History: C-sections, thyroidectomy - Social History Smoking Status: Never Smoker Substance Use Type: Alcohol - Medications Home Medications: Home Medications Medication Instructions Recorded Confirmed Last Taken Type Carvedilol 6.25 mg PO BID 06/30/16 02/21/19 06/07/18 History Furosemide 40 mg PO DAILY 06/30/16 02/21/19 06/07/18 History Lisinopril 40 mg PO DAILY 06/30/16 02/21/19 06/07/18 History Levothyroxine Sodium [Synthroid] 137 mcg PO DAILY 06/08/18 02/21/19 06/07/18 History Potassium Chloride [K-Dur] 10 meq PO BID 06/08/18 02/21/19 06/07/18 History Pravastatin [Pravachol] 40 mg PO QHS 06/08/18 02/21/19 06/07/18 History ED Physical Exam - General Limitations: No Limitations General appearance: alert, in no apparent distress - Head Head exam: Present: atraumatic, normocephalic - Eye Eye exam: Present: normal appearance - ENT ENT exam: Present: mucous membranes moist - Neck Neck exam: Present: normal inspection - Respiratory Respiratory exam: Present: normal lung sounds bilaterally. Absent: respiratory distress - Cardiovascular Cardiovascular Exam: Present: normal rhythm, tachycardia - GI/Abdominal GI/Abdominal exam: Present: soft. Absent: distended, tenderness - Rectal Rectal exam: Present: heme (+) stool, bloody stool - Extremities Exam Extremities exam: Present: normal inspection - Neurological Exam Neurological exam: Present: alert, oriented X3 - Psychiatric Psychiatric exam: Present: normal affect, normal mood - Skin Skin exam: Present: warm, dry, intact, normal color ED Course Vital Signs 02/21/19 02/21/19 02/21/19 18:33 21:31 23:00 Temperature 98.5 F 97.2 F L Pulse Rate 116 H Respiratory 16 18 Rate Blood Pressure 124/75 137/79 Blood Pressure 121/77 [Left] O2 Sat by Pulse 100 98 Oximetry 02/22/19 02/22/19 02/22/19 00:01 00:09 00:11 Temperature Pulse Rate 92 H 93 H 90 Respiratory 17 11 L 23 Rate Blood Pressure 137/79 126/75 126/75 Blood Pressure [Left] O2 Sat by Pulse 100 Oximetry 02/22/19 02/22/19 00:21 00:31 Temperature Pulse Rate 97 H 100 H Respiratory 16 14 Rate Blood Pressure 137/79 137/79 Blood Pressure [Left] O2 Sat by Pulse 100 100 Oximetry - Reevaluation(s) Reevaluation #1: 02/21/19 21:55 WBCs increased from 12 to 22 since lab draw from 5AM this morning. Pt denies fever, vomiting, urinary symptoms, cough. Only complaint is mild abd pain and rectal bleeding. Since tachycardic and WBCs of 22, will draw cultures, obtain lactate, and cover w/ zosyn. - Consultations Consultation #1: 02/21/19 21:52 Spoke w/ Dr Menchaca. States re-admit to monitor Hb and WBCs. ED Medical Decision Making - Lab Data Result diagrams: 02/22/19 00:14 02/21/19 18:42 - Medical Decision Making - d/c'd today following admssion for diverticulosis and lower GI bleed - bleeding restarted after pt got home - Hb stable, slightly tachycardic - pt with new elevated WBCs, cultures sent and abx given since meets SIRS criteria - GI aware of patient - pt admitted to hospitalist, Dr Vicente - Differential Diagnosis anemia, diverticulosis, diverticulitis Critical care attestation.: If time is entered above; I have spent that time in minutes in the direct care of this critically ill patient, excluding procedure time. ED Disposition Clinical Impression: Acute lower GI bleeding Disposition: OP ADMIT IP TO THIS HOSP Is pt being admited?: Yes Condition: Stable Time of Disposition: 23:30
[2019-02-21] MEDS ORDERED: NACL 0.9% 1000 ML 1,000 ML IV ONE (21:55)
[2019-02-21] MEDS ORDERED: ZOSYN/NS 4.5GM/100ML 4.5 GM/100 ML VIAL IV ONE (21:55)
[2019-02-21 22:32] LABS: Bacteria,Urine 1+ /HPF (Negative); Bilirubin,Urine NEG (Negative); Blood,Urine SM (Negative); Color,Urine Yellow (Yellow); Hyaline Casts,Urine 1 /LPF; Mucus,Urine 1+ /HPF; Urobilinogen,Urine < 2.0 mg/dL (<2.0)
--- NOTE | 2019-02-21 23:49 | History and Physical Report ---
History of Present Illness Date of examination: 02/21/19 History of present illness: 43 year old woman with a history of hypertension, CHF, hypothyroidism, hyperlipidemia comes emergency room with complaints of blood per rectum. The patient was just discharged from the hospital this afternoon, while she was at a restaurant she is a episode of blood per rectum and subsequently has 6 more episodes. Complaining of feeling tired, dizzy and lower abdominal cramping, lasting for a few seconds, intermittent, intensity 2/10, no radiation, cannot identify exacerbating or relieving factors. She status post EGD on last a dmission which showed mild antral gastritis and colonoscopy showing right sided diverticulosis without active bleeding. Review of systems Constitutional: no weight loss, chills, fever Ears, eyes, nose, mouth and throat: no nasal congestion, no nasal discharge, no sinus pressure, no vision change, no red eye. Neck: No neck pain or rigidity. Cardiovascular: no palpitations, chest pain Respiratory: no cough, shortness of breath Gastrointestinal: no abdominal pain Genitourinary : no frequency , no hematuria Musculoskeletal: no joint swelling or muscle ache Integumentary: no rash, no pruritis Neurological: no parathesias, no focal weakness Endocrine: no cold or heat intolerance, no polyuria or polydipsia Hematologic/Lymphatic: no easy bruising, no easy bleeding, no gland swelling Allergic/Immunologic: no urticaria, no angioedema. PAST MEDICAL HISTORY: hypertension, CHF, hypothyroidism, hyperlipidemia PAST SURGICAL HISTORY: Cholecystectomy, cataract, thyroidectomy SOCIAL HISTORY: Denies alcohol, drugs, tobacco FAMILY HISTORY: Hypertension Medications and Allergies Allergies Allergy/AdvReac Type Severity Reaction Status Date / Time No Known Allergies Allergy Verified 02/21/19 18:11 Home Medications Medication Instructions Recorded Confirmed Last Taken Type Carvedilol 6.25 mg PO BID 06/30/16 02/21/19 06/07/18 History Furosemide 40 mg PO DAILY 06/30/16 02/21/19 06/07/18 History Lisinopril 40 mg PO DAILY 06/30/16 02/21/19 06/07/18 History Levothyroxine Sodium [Synthroid] 137 mcg PO DAILY 06/08/18 02/21/19 06/07/18 History Potassium Chloride [K-Dur] 10 meq PO BID 06/08/18 02/21/19 06/07/18 History Pravastatin [Pravachol] 40 mg PO QHS 06/08/18 02/21/19 06/07/18 History Exam - Physical Exam Narrative exam: General Apperance: The patient lying in bed, breathing comfortable HEENT: Normocephalic, atraumatic. Pupils equally round and reactive to light, EOMI, no sclericterus or JVD or thyromegaly or nodule. , no carotid bruit, mucous membranes moist, no exudate or erythema Heart: S1-S2, regular is rhythm Lungs: Clear to auscultation bilaterally, breathing comfortable Abdomen: Positive bowel sounds, soft, nontender, nondistended, no organomegaly Extremities: No edema cyanosis clubbing Skin: no rash, nodule, warm and dry Neuro: cranial nerves 2-12 intact, speech is fluent, motor/sensory intact - Constitutional Vitals: Temp Pulse Resp BP Pulse Ox 97.2 F L 116 H 18 121/77 98 02/21/19 21:31 02/21/19 18:33 02/21/19 21:31 02/21/19 21:31 02/21/19 21:31 Results - Labs CBC & Chem 7: 02/22/19 00:14 02/21/19 18:42 Labs: Abnormal lab results 02/21/19 02/21/19 02/21/19 Range/Units 18:42 18:42 18:42 WBC 22.1 H (4.5-11.0) K/mm3 RBC 3.18 L (3.65-5.03) M/mm3 Hgb 9.6 L (10.1-14.3) gm/dl Hct 27.6 L (30.3-42.9) % MCHC 35 H (30-34) % Monocytes % (Manual) 8.0 H (0.0-7.3) % Seg Neutrophils # Man 15.0 H (1.8-7.7) K/mm3 Monocytes # (Manual) 1.8 H (0.0-0.8) K/mm3 Basophils # (Manual) 0.2 H (0.0-0.1) K/mm3 APTT 23.0 L (24.2-36.6) Sec. Potassium 3.0 L (3.6-5.0) mmol/L Creatinine 1.5 H D (0.7-1.2) mg/dL Glucose 166 H (65-100) mg/dL Lactic Acid (0.7-2.0) mmol/L Calcium 8.2 L (8.4-10.2) mg/dL Lipase 221 H (13-60) units/L Urine WBC (Auto) (0.0-6.0) /HPF U Epithel Cells (Auto) (0-13.0) /HPF 02/21/19 02/21/19 02/21/19 Range/Units 22:04 22:10 22:51 WBC (4.5-11.0) K/mm3 RBC (3.65-5.03) M/mm3 Hgb (10.1-14.3) gm/dl Hct (30.3-42.9) % MCHC (30-34) % Monocytes % (Manual) (0.0-7.3) % Seg Neutrophils # Man (1.8-7.7) K/mm3 Monocytes # (Manual) (0.0-0.8) K/mm3 Basophils # (Manual) (0.0-0.1) K/mm3 APTT (24.2-36.6) Sec. Potassium (3.6-5.0) mmol/L Creatinine (0.7-1.2) mg/dL Glucose (65-100) mg/dL Lactic Acid 2.50 H* 2.90 H* (0.7-2.0) mmol/L Calcium (8.4-10.2) mg/dL Lipase (13-60) units/L Urine WBC (Auto) 12.0 H (0.0-6.0) /HPF U Epithel Cells (Auto) 15.0 H (0-13.0) /HPF Assessment and Plan Assessment Lower GI bleed most likely diverticular Acute renal insufficiency UTI hypertension CHF, stable hypothyroidism hyperlipidemia Plan Admit to medicine Check serial hemoglobin, consult GI Hold IV fluid secondary to CHF Start IV Zosyn, follow cultures Repeat potassium DVT prophylaxis
[2019-02-22] MEDS ORDERED: ZOFRAN IV PRN ×2 (00:02→00:04)
[2019-02-22] MEDS ORDERED: SODIUM CHLORIDE FLUSH SYRINGE 10 ML IV PRN (00:04)
[2019-02-22] MEDS ORDERED: K-DUR PO ONE (00:24)
[2019-02-22 00:51] LABS: Hematocrit 24.9 % (30.3-42.9); Hemoglobin 8.5 gm/dl (10.1-14.3)
[2019-02-22] MEDS: TYLENOL PO PRN (02:22)
[2019-02-22] MEDS ORDERED: ZOSYN/NS 4.5GM/100ML 4.5 GM/100 ML VIAL IV SCH (06:00)
[2019-02-22 06:10] LABS: Hemoglobin 8.3 gm/dl (10.1-14.3); Mean Corpuscular HGB Conc 35 % (30-34); Mean Corpuscular Volume 87 fl (79-97); Platelet Count 275 K/mm3 (140-440); Red Blood Count 2.77 M/mm3 (3.65-5.03); Red Cell Distribution Width 13.7 % (13.2-15.2)
[2019-02-22 06:29] LABS: BUN/Creatinine Ratio 16; Blood Urea Nitrogen 13 mg/dL (7-17); Calcium 7.3 mg/dL (8.4-10.2); Hemolysis Index 3
[2019-02-22] MEDS: ZOSYN/NS 3.375GM/50ML 3.375 GM/50 ML BAG IV SCH ×3 (06:59→23:01)
[2019-02-22 08:13] LABS: Basophils % (Manual) 0 % (0.0-1.8); Eosinophils % (Manual) 0 % (0.0-4.3); Total Cells Counted 100
[2019-02-22 08:14] LABS: Anisocytosis 1+
[2019-02-22 08:56] LABS: Hematocrit 22.8 % (30.3-42.9); Hemoglobin 8.1 gm/dl (10.1-14.3)
--- NOTE | 2019-02-22 09:01 | Gastroenterology Consultation ---
History of Present Illness - Reason for Consult Consult date: 02/22/19 Rectal bleeding Requesting physician: KULDEEP BURLESON - History of Present Illness Ms Taveras is a 43 y/o female admitted with reports of rectal bleeding. She was discharged same day for rectal bleeding and melena. She was initially seen by our group on 02/19/19 for reports of melena and passing bright red blood clots. She underwent EGD/ Colonoscopy on 02/20/19 revealing gastritis, irregular Z line, diverticulosis and internal hemorrhoids. No fresh blood or active bleeding, but maroon colored stool was noted. She reports when she was discharged she started to have multiple episodes of rectal bleeding, up to 7 episodes and returned to the ED. The patient states she has only had this similar issue in 2018 and was found to have cecal diverticulosis at that time. H/H has remained stable with mild decrease to 8.5/24.9. CT on 02/18/19 with no acute issues, diverticulosis and uterine fibroid. She denies abdominal pain but states she has "soreness." No bleeding since arrival to [facility] floor. Past History Past Medical History: heart failure, hypertension, hypothyroidism Past Surgical History: cholecystectomy, thyroidectomy, Other (EGD/ colonoscopy) Social history: lives with family Family history: no significant family history Medications and Allergies Allergies Allergy/AdvReac Type Severity Reaction Status Date / Time No Known Allergies Allergy Verified 02/21/19 18:11 Home Medications Medication Instructions Recorded Confirmed Last Taken Type Carvedilol 6.25 mg PO BID 06/30/16 02/21/19 06/07/18 History Furosemide 40 mg PO DAILY 06/30/16 02/21/19 06/07/18 History Lisinopril 40 mg PO DAILY 06/30/16 02/21/19 06/07/18 History Levothyroxine Sodium [Synthroid] 137 mcg PO DAILY 06/08/18 02/21/19 06/07/18 History Potassium Chloride [K-Dur] 10 meq PO BID 06/08/18 02/21/19 06/07/18 History Pravastatin [Pravachol] 40 mg PO QHS 06/08/18 02/21/19 06/07/18 History Active Meds: Active Medications Acetaminophen (Tylenol) 650 mg PO Q4H PRN PRN Reason: Pain MILD(1-3)/Fever >100.5/CASTILLO Last Admin: 02/22/19 02:22 Dose: 650 mg Documented by: Piperacillin Sod/Tazobactam Sod (Zosyn/Ns 3.375gm/50ml) 3.375 gm in 50 mls @ 100 mls/hr IV Q8HR FERNANDEZ Last Admin: 02/22/19 06:59 Dose: 100 mls/hr Documented by: Morphine Sulfate (Morphine) 2 mg IV Q4H PRN PRN Reason: Pain, Moderate (4-6) Ondansetron HCl (Zofran) 4 mg IV Q8H PRN PRN Reason: Nausea And Vomiting Sodium Chloride (Sodium Chloride Flush Syringe 10 Ml) 10 ml IV BID [facility] Sodium Chloride (Sodium Chloride Flush Syringe 10 Ml) 10 ml IV PRN PRN PRN Reason: LINE FLUSH Review of Systems - Review of Systems Constitutional: weakness Gastrointestinal: hematochezia Exam - Constitutional Vital Signs: Temp Pulse Resp BP Pulse Ox 97.7 F 100 H 14 137/79 100 02/22/19 08:00 02/22/19 00:31 02/22/19 04:00 02/22/19 04:00 02/22/19 04:00 General appearance: no acute distress - EENT Eyes: EOM intact ENT: hearing intact - Neck Neck: supple - Respiratory Respiratory: bilateral: CTA - Cardiovascular Rhythm: regular Heart Sounds: Present: S1 & S2 Extremities: pulses intact - Gastrointestinal General gastrointestinal: Present: soft, non-tender, non-distended, normal bowel sounds - Integumentary Integumentary: Present: warm, dry - Neurologic Neurological: alert and oriented x3 - Psychiatric Psychiatric: appropriate mood/affect, cooperative - Labs CBC & Chem 7: 02/22/19 08:20 02/22/19 05:19 Lab Results: Laboratory Results - last 24 hr 02/21/19 02/21/19 02/21/19 18:42 18:42 18:42 WBC 22.1 H RBC 3.18 L Hgb 9.6 L Hct 27.6 L MCV 87 MCH 30 MCHC 35 H RDW 14.1 Plt Count 357 Baso % (Auto) Home Health Travel Pt Lymph # Home Health Travel Pt Add Manual Diff Complete Total Counted 100 Seg Neuts % (Manual) 68.0 Band Neutrophils % 0 Lymphocytes % (Manual) 22.0 Reactive Lymphs % (Man) 0 Monocytes % (Manual) 8.0 H Eosinophils % (Manual) 1.0 Basophils % (Manual) 1.0 Metamyelocytes % 0 Myelocytes % 0 Promyelocytes % 0 Blast Cells % 0 Nucleated RBC % Not Reportable Seg Neutrophils # Man 15.0 H Band Neutrophils # 0.0 Lymphocytes # (Manual) 4.9 Abs React Lymphs (Man) 0.0 Monocytes # (Manual) 1.8 H Eosinophils # (Manual) 0.2 Basophils # (Manual) 0.2 H Metamyelocytes # 0.0 Myelocytes # 0.0 Promyelocytes # 0.0 Blast Cells # 0.0 WBC Morphology Not Reportable Hypersegmented Neuts Not Reportable Hyposegmented Neuts Not Reportable Hypogranular Neuts Not Reportable Smudge Cells Not Reportable Toxic Granulation Not Reportable Toxic Vacuolation Not Reportable Dohle Bodies Not Reportable Pelger-Huet Anomaly Not Reportable Bambi Rods Not Reportable Platelet Estimate Not Reportable Clumped Platelets Not Reportable Plt Clumps, EDTA Not Reportable Large Platelets Not Reportable Giant Platelets Not Reportable Platelet Satelliting Not Reportable Plt Morphology Comment Not Reportable RBC Morphology Normal Dimorphic RBCs Not Reportable Polychromasia Not Reportable Hypochromasia Not Reportable Poikilocytosis Not Reportable Anisocytosis Not Reportable Microcytosis Not Reportable Macrocytosis Not Reportable Spherocytes Not Reportable Pappenheimer Bodies Not Reportable Sickle Cells Not Reportable Target Cells Not Reportable Tear Drop Cells Not Reportable Ovalocytes Not Reportable Helmet Cells Not Reportable [place] Bodies Not Reportable [place] Rings Not Reportable [place] Cells Not Reportable Bite Cells Not Reportable Crenated Cell Not Reportable Elliptocytes Not Reportable Acanthocytes (Spur) Not Reportable Rouleaux Not Reportable Hemoglobin C Crystals Not Reportable Schistocytes Not Reportable Malaria parasites Not Reportable Ulises Bodies Not Reportable Hem Pathologist Commnt No PT 13.2 INR 0.95 APTT 23.0 L Sodium 141 Potassium 3.0 L Chloride 98.2 Carbon Dioxide 26 Anion Gap 20 BUN 17 Creatinine 1.5 H D Estimated GFR 46 BUN/Creatinine Ratio 11 Glucose 166 H Lactic Acid Calcium 8.2 L Total Bilirubin < 0.20 Direct Bilirubin < 0.2 Indirect Bilirubin 0.0 AST 10 ALT 14 Alkaline Phosphatase 55 Total Protein 6.7 Albumin 3.9 Albumin/Globulin Ratio 1.4 Lipase 221 H HCG, Qual Urine Color Urine Turbidity Urine pH Ur Specific [place] Urine Protein Urine Glucose (UA) Urine Ketones Urine Blood Urine Nitrite Urine Bilirubin Urine Urobilinogen Ur Leukocyte Esterase Urine WBC (Auto) Urine RBC (Auto) U Epithel Cells (Auto) Urine Bacteria (Auto) Hyaline Casts Urine Mucus 02/21/19 02/21/19 02/21/19 18:42 22:04 22:10 WBC RBC Hgb Hct MCV MCH MCHC RDW Plt Count Baso % (Auto) Lymph # Add Manual Diff Total Counted Seg Neuts % (Manual) Band Neutrophils % Lymphocytes % (Manual) Reactive Lymphs % (Man) Monocytes % (Manual) Eosinophils % (Manual) Basophils % (Manual) Metamyelocytes % Myelocytes % Promyelocytes % Blast Cells % Nucleated RBC % Seg Neutrophils # Man Band Neutrophils # Lymphocytes # (Manual) Abs React Lymphs (Man) Monocytes # (Manual) Eosinophils # (Manual) Basophils # (Manual) Metamyelocytes # Myelocytes # Promyelocytes # Blast Cells # WBC Morphology Hypersegmented Neuts Hyposegmented Neuts Hypogranular Neuts Smudge Cells Toxic Granulation Toxic Vacuolation Dohle Bodies Pelger-Huet Anomaly Bambi Rods Platelet Estimate Clumped Platelets Plt Clumps, EDTA Large Platelets Giant Platelets Platelet Satelliting Plt Morphology Comment RBC Morphology Dimorphic RBCs Polychromasia Hypochromasia Poikilocytosis Anisocytosis Microcytosis Macrocytosis Spherocytes Pappenheimer Bodies Sickle Cells Target Cells Tear Drop Cells Ovalocytes Helmet Cells [place] Bodies [place] Rings [place] Cells Bite Cells Crenated Cell Elliptocytes Acanthocytes (Spur) Rouleaux Hemoglobin C Crystals Schistocytes Malaria parasites Ulises Bodies Hem Pathologist Commnt PT INR APTT Sodium Potassium Chloride Carbon Dioxide Anion Gap BUN Creatinine Estimated GFR BUN/Creatinine Ratio Glucose Lactic Acid 2.50 H* Calcium Total Bilirubin Direct Bilirubin Indirect Bilirubin AST ALT Alkaline Phosphatase Total Protein Albumin Albumin/Globulin Ratio Lipase HCG, Qual Negative Urine Color Yellow Urine Turbidity Cloudy Urine pH 5.0 Ur Specific [place] 1.029 Urine Protein 100 mg/dl Urine Glucose (UA) Neg Urine Ketones Tr Urine Blood Sm Urine Nitrite Neg Urine Bilirubin Neg Urine Urobilinogen < 2.0 Ur Leukocyte Esterase Sm Urine WBC (Auto) 12.0 H Urine RBC (Auto) 4.0 U Epithel Cells (Auto) 15.0 H Urine Bacteria (Auto) 1+ Hyaline Casts 1 Urine Mucus 1+ 02/21/19 02/22/19 02/22/19 22:51 00:14 05:19 WBC 16.0 H RBC 2.77 L Hgb 8.5 L 8.3 L Hct 24.9 L 24.0 L MCV 87 MCH 30 MCHC 35 H RDW 13.7 Plt Count 275 Baso % (Auto) Lymph # Home Health Travel Pt Add Manual Diff Complete Total Counted 100 Seg Neuts % (Manual) 62.0 Band Neutrophils % 0 Lymphocytes % (Manual) 35.0 Reactive Lymphs % (Man) 0 Monocytes % (Manual) 3.0 Eosinophils % (Manual) 0 Basophils % (Manual) 0 Metamyelocytes % 0 Myelocytes % 0 Promyelocytes % 0 Blast Cells % 0 Nucleated RBC % Not Reportable Seg Neutrophils # Man 9.9 H Band Neutrophils # 0.0 Lymphocytes # (Manual) 5.6 H Abs React Lymphs (Man) 0.0 Monocytes # (Manual) 0.5 Eosinophils # (Manual) 0.0 Basophils # (Manual) 0.0 Metamyelocytes # 0.0 Myelocytes # 0.0 Promyelocytes # 0.0 Blast Cells # 0.0 WBC Morphology Not Reportable Hypersegmented Neuts Not Reportable Hyposegmented Neuts Not Reportable Hypogranular Neuts Not Reportable Smudge Cells Not Reportable Toxic Granulation Not Reportable Toxic Vacuolation Not Reportable Dohle Bodies Not Reportable Pelger-Huet Anomaly Not Reportable Bambi Rods Not Reportable Platelet Estimate Appears normal Clumped Platelets Not Reportable Plt Clumps, EDTA Not Reportable Large Platelets Not Reportable Giant Platelets Not Reportable Platelet Satelliting Not Reportable Plt Morphology Comment Not Reportable RBC Morphology Not Reportable Dimorphic RBCs Not Reportable Polychromasia Not Reportable Hypochromasia Not Reportable Poikilocytosis Not Reportable Anisocytosis 1+ Microcytosis Not Reportable Macrocytosis Not Reportable Spherocytes Not Reportable Pappenheimer Bodies Not Reportable Sickle Cells Not Reportable Target Cells Not Reportable Tear Drop Cells Not Reportable Ovalocytes Not Reportable Helmet Cells Not Reportable [place] Bodies Not Reportable [place] Rings Not Reportable Julio Cells Not Reportable Bite Cells Not Reportable Crenated Cell Not Reportable Elliptocytes Not Reportable Acanthocytes (Spur) Not Reportable Rouleaux Not Reportable Hemoglobin C Crystals Not Reportable Schistocytes Not Reportable Malaria parasites Not Reportable Ulises Bodies Not Reportable Hem Pathologist Commnt No PT INR APTT Sodium Potassium Chloride Carbon Dioxide Anion Gap BUN Creatinine Estimated GFR BUN/Creatinine Ratio Glucose Lactic Acid 2.90 H* Calcium Total Bilirubin Direct Bilirubin Indirect Bilirubin AST ALT Alkaline Phosphatase Total Protein Albumin Albumin/Globulin Ratio Lipase HCG, Qual Urine Color Urine Turbidity Urine pH Ur Specific [place] Urine Protein Urine Glucose (UA) Urine Ketones Urine Blood Urine Nitrite Urine Bilirubin Urine Urobilinogen Ur Leukocyte Esterase Urine WBC (Auto) Urine RBC (Auto) U Epithel Cells (Auto) Urine Bacteria (Auto) Hyaline Casts Urine Mucus 02/22/19 02/22/19 05:19 08:20 WBC RBC Hgb 8.1 L Hct 22.8 L MCV MCH MCHC RDW Plt Count Baso % (Auto) Lymph # Add Manual Diff Total Counted Seg Neuts % (Manual) Band Neutrophils % Lymphocytes % (Manual) Reactive Lymphs % (Man) Monocytes % (Manual) Eosinophils % (Manual) Basophils % (Manual) Metamyelocytes % Myelocytes % Promyelocytes % Blast Cells % Nucleated RBC % Seg Neutrophils # Man Band Neutrophils # Lymphocytes # (Manual) Abs React Lymphs (Man) Monocytes # (Manual) Eosinophils # (Manual) Basophils # (Manual) Metamyelocytes # Myelocytes # Promyelocytes # Blast Cells # WBC Morphology Hypersegmented Neuts Hyposegmented Neuts Hypogranular Neuts Smudge Cells Toxic Granulation Toxic Vacuolation Dohle Bodies Pelger-Huet Anomaly Bambi Rods Platelet Estimate Clumped Platelets Plt Clumps, EDTA Large Platelets Giant Platelets Platelet Satelliting Plt Morphology Comment RBC Morphology Dimorphic RBCs Polychromasia Hypochromasia Poikilocytosis Anisocytosis Microcytosis Macrocytosis Spherocytes Pappenheimer Bodies Sickle Cells Target Cells Tear Drop Cells Ovalocytes Helmet Cells [place] Bodies [place] Rings Julio Cells Bite Cells Crenated Cell Elliptocytes Acanthocytes (Spur) Rouleaux Hemoglobin C Crystals Schistocytes Malaria parasites Ulises Bodies Hem Pathologist Commnt PT INR APTT Sodium 141 Potassium 3.1 L Chloride 103.7 Carbon Dioxide 28 Anion Gap 12 BUN 13 Creatinine 0.8 Estimated GFR > 60 BUN/Creatinine Ratio 16 Glucose 125 H Lactic Acid Calcium 7.3 L Total Bilirubin Direct Bilirubin Indirect Bilirubin AST ALT Alkaline Phosphatase Total Protein Albumin Albumin/Globulin Ratio Lipase HCG, Qual Urine Color Urine Turbidity Urine pH Ur Specific [place] Urine Protein Urine Glucose (UA) Urine Ketones Urine Blood Urine Nitrite Urine Bilirubin Urine Urobilinogen Ur Leukocyte Esterase Urine WBC (Auto) Urine RBC (Auto) U Epithel Cells (Auto) Urine Bacteria (Auto) Hyaline Casts Urine Mucus Assessment and Plan 1. Rectal bleeding 2. Anemia -H/H stable, but with mild decrease 9.6/27.6-->8.5/24.9-->8.1/22.0 - CTA of A/P today for bleeding - Monitor H/H and transfuse as needed - Hold blood thinning meds. - Further recommendations based on CTA.
[2019-02-22] MEDS: SODIUM CHLORIDE FLUSH SYRINGE 10 ML IV SCH ×2 (10:31→23:02)
[2019-02-22 12:46] LABS: Hemoglobin 8.4 gm/dl (10.1-14.3)
--- NOTE | 2019-02-22 14:28 | Progress Note ---
Assessment and Plan Assessment and plan: 43F who was recently admitted for GI bleed, who was sent back to ER on the same day by her GI, she had 5 episodes of bloody stool right after dc pmh; htn, chf, hypothryoid, HLD, hypokalemia, migraines Dx acute gi bleed due to diverticulosis acute blood loss anemia -hypokalemia TERESA- vasomotor nephropathy Plan -transfuse to keep hg above 7 -Gi consulted, may need IR coiling vs partial colectomy if continues to bleed, fup CTA a/p -replete K, check mg -TERESA resolved with IVF dvt ppx scds History Interval history: Review of systems Constitutional: No fevers, no malaise, no joint pains CVS: No chest pain, no orthopnea, no dyspnea on exertion, no pedal edema GI: No abdominal pain, no diarrhea, no vomiting, no constipation She has not had any rectal bleeding this morning Respiratory: No shortness of breath, no wheezing, no coughing Hospitalist Physical - Physical exam Narrative exam: General.: Appears well, no distress, nontoxic HEENT: Moist mucous membranes, extraocular muscles intact, no lymphadenopathy Neck: supple Cardiac: S1-S2 heard Lungs: clear to auscultation bilaterally Abdomen: soft , nontender, nondistended, bowel sounds positive Extremities: no edema clubbing or cyanosis Skin: no rash or lesions Neurologic: no gross focal deficits Psych: calm, and cooperative - Constitutional Vitals: Temp Pulse Resp BP Pulse Ox 98.4 F 88 16 137/79 100 02/22/19 12:00 02/22/19 10:00 02/22/19 08:00 02/22/19 04:00 02/22/19 10:28 Results - Labs CBC & Chem 7: 02/22/19 12:24 02/22/19 05:19 Labs: Laboratory Last Values WBC 16.0 K/mm3 (4.5-11.0) H 02/22/19 05:19 RBC 2.77 M/mm3 (3.65-5.03) L 02/22/19 05:19 Hgb 8.4 gm/dl (10.1-14.3) L 02/22/19 12:24 Hct 25.0 % (30.3-42.9) L 02/22/19 12:24 MCV 87 fl (79-97) 02/22/19 05:19 MCH 30 pg (28-32) 02/22/19 05:19 MCHC 35 % (30-34) H 02/22/19 05:19 RDW 13.7 % (13.2-15.2) 02/22/19 05:19 Plt Count 275 K/mm3 (140-440) 02/22/19 05:19 Baso % (Auto) Linux Engineer 02/21/19 18:42 Lymph # Linux Engineer 02/22/19 05:19 Add Manual Diff Complete 02/22/19 05:19 Total Counted 100 02/22/19 05:19 Seg Neuts % (Manual) 62.0 % (40.0-70.0) 02/22/19 05:19 Band Neutrophils % 0 % 02/22/19 05:19 Lymphocytes % (Manual) 35.0 % (13.4-35.0) 02/22/19 05:19 Reactive Lymphs % (Man) 0 % 02/22/19 05:19 Monocytes % (Manual) 3.0 % (0.0-7.3) 02/22/19 05:19 Eosinophils % (Manual) 0 % (0.0-4.3) 02/22/19 05:19 Basophils % (Manual) 0 % (0.0-1.8) 02/22/19 05:19 Metamyelocytes % 0 % 02/22/19 05:19 Myelocytes % 0 % 02/22/19 05:19 Promyelocytes % 0 % 02/22/19 05:19 Blast Cells % 0 % 02/22/19 05:19 Nucleated RBC % Not Reportable 02/22/19 05:19 Seg Neutrophils # Man 9.9 K/mm3 (1.8-7.7) H 02/22/19 05:19 Band Neutrophils # 0.0 K/mm3 02/22/19 05:19 Lymphocytes # (Manual) 5.6 K/mm3 (1.2-5.4) H 02/22/19 05:19 Abs React Lymphs (Man) 0.0 K/mm3 02/22/19 05:19 Monocytes # (Manual) 0.5 K/mm3 (0.0-0.8) 02/22/19 05:19 Eosinophils # (Manual) 0.0 K/mm3 (0.0-0.4) 02/22/19 05:19 Basophils # (Manual) 0.0 K/mm3 (0.0-0.1) 02/22/19 05:19 Metamyelocytes # 0.0 K/mm3 02/22/19 05:19 Myelocytes # 0.0 K/mm3 02/22/19 05:19 Promyelocytes # 0.0 K/mm3 02/22/19 05:19 Blast Cells # 0.0 K/mm3 02/22/19 05:19 WBC Morphology Not Reportable 02/22/19 05:19 Hypersegmented Neuts Not Reportable 02/22/19 05:19 Hyposegmented Neuts Not Reportable 02/22/19 05:19 Hypogranular Neuts Not Reportable 02/22/19 05:19 Smudge Cells Not Reportable 02/22/19 05:19 Toxic Granulation Not Reportable 02/22/19 05:19 Toxic Vacuolation Not Reportable 02/22/19 05:19 Dohle Bodies Not Reportable 02/22/19 05:19 Pelger-Huet Anomaly Not Reportable 02/22/19 05:19 Bambi Rods Not Reportable 02/22/19 05:19 Platelet Estimate Appears normal 02/22/19 05:19 Clumped Platelets Not Reportable 02/22/19 05:19 Plt Clumps, EDTA Not Reportable 02/22/19 05:19 Large Platelets Not Reportable 02/22/19 05:19 Giant Platelets Not Reportable 02/22/19 05:19 Platelet Satelliting Not Reportable 02/22/19 05:19 Plt Morphology Comment Not Reportable 02/22/19 05:19 RBC Morphology Not Reportable 02/22/19 05:19 Dimorphic RBCs Not Reportable 02/22/19 05:19 Polychromasia Not Reportable 02/22/19 05:19 Hypochromasia Not Reportable 02/22/19 05:19 Poikilocytosis Not Reportable 02/22/19 05:19 Anisocytosis 1+ 02/22/19 05:19 Microcytosis Not Reportable 02/22/19 05:19 Macrocytosis Not Reportable 02/22/19 05:19 Spherocytes Not Reportable 02/22/19 05:19 Pappenheimer Bodies Not Reportable 02/22/19 05:19 Sickle Cells Not Reportable 02/22/19 05:19 Target Cells Not Reportable 02/22/19 05:19 Tear Drop Cells Not Reportable 02/22/19 05:19 Ovalocytes Not Reportable 02/22/19 05:19 Helmet Cells Not Reportable 02/22/19 05:19 [place] Bodies Not Reportable 02/22/19 05:19 [place] Rings Not Reportable 02/22/19 05:19 Julio Cells Not Reportable 02/22/19 05:19 Bite Cells Not Reportable 02/22/19 05:19 Crenated Cell Not Reportable 02/22/19 05:19 Elliptocytes Not Reportable 02/22/19 05:19 Acanthocytes (Spur) Not Reportable 02/22/19 05:19 Rouleaux Not Reportable 02/22/19 05:19 Hemoglobin C Crystals Not Reportable 02/22/19 05:19 Schistocytes Not Reportable 02/22/19 05:19 Malaria parasites Not Reportable 02/22/19 05:19 Ulises Bodies Not Reportable 02/22/19 05:19 Hem Pathologist Commnt No 02/22/19 05:19 PT 13.2 Sec. (12.2-14.9) 02/21/19 18:42 INR 0.95 (0.87-1.13) 02/21/19 18:42 APTT 23.0 Sec. (24.2-36.6) L 02/21/19 18:42 Sodium 141 mmol/L (137-145) 02/22/19 05:19 Potassium 3.1 mmol/L (3.6-5.0) L 02/22/19 05:19 Chloride 103.7 mmol/L (98-107) 02/22/19 05:19 Carbon Dioxide 28 mmol/L (22-30) 02/22/19 05:19 Anion Gap 12 mmol/L 02/22/19 05:19 BUN 13 mg/dL (7-17) 02/22/19 05:19 Creatinine 0.8 mg/dL (0.7-1.2) 02/22/19 05:19 Estimated GFR > 60 ml/min 02/22/19 05:19 BUN/Creatinine Ratio 16 % 02/22/19 05:19 Glucose 125 mg/dL (65-100) H 02/22/19 05:19 Lactic Acid 2.90 mmol/L (0.7-2.0) H* 02/21/19 22:51 Calcium 7.3 mg/dL (8.4-10.2) L 02/22/19 05:19 Total Bilirubin < 0.20 mg/dL (0.1-1.2) 02/21/19 18:42 Direct Bilirubin < 0.2 mg/dL (0-0.2) 02/21/19 18:42 Indirect Bilirubin 0.0 mg/dL 02/21/19 18:42 AST 10 units/L (5-40) 02/21/19 18:42 ALT 14 units/L (7-56) 02/21/19 18:42 Alkaline Phosphatase 55 units/L (35-129) 02/21/19 18:42 Total Protein 6.7 g/dL (6.3-8.2) 02/21/19 18:42 Albumin 3.9 g/dL (3.9-5) 02/21/19 18:42 Albumin/Globulin Ratio 1.4 % 02/21/19 18:42 Lipase 221 units/L (13-60) H 02/21/19 18:42 HCG, Qual Negative (Negative) 02/21/19 18:42 Urine Color Yellow (Yellow) 02/21/19 22:10 Urine Turbidity Cloudy (Clear) 02/21/19 22:10 Urine pH 5.0 (5.0-7.0) 02/21/19 22:10 Ur Specific [place] 1.029 (1.003-1.030) 02/21/19 22:10 Urine Protein 100 mg/dl mg/dL (Negative) 02/21/19 22:10 Urine Glucose (UA) Neg mg/dL (Negative) 02/21/19 22:10 Urine Ketones Tr mg/dL (Negative) 02/21/19 22:10 Urine Blood Sm (Negative) 02/21/19 22:10 Urine Nitrite Neg (Negative) 02/21/19 22:10 Urine Bilirubin Neg (Negative) 02/21/19 22:10 Urine Urobilinogen < 2.0 mg/dL (<2.0) 02/21/19 22:10 Ur Leukocyte Esterase Sm (Negative) 02/21/19 22:10 Urine WBC (Auto) 12.0 /HPF (0.0-6.0) H 02/21/19 22:10 Urine RBC (Auto) 4.0 /HPF (0.0-6.0) 02/21/19 22:10 U Epithel Cells (Auto) 15.0 /HPF (0-13.0) H 02/21/19 22:10 Urine Bacteria (Auto) 1+ /HPF (Negative) 02/21/19 22:10 Hyaline Casts 1 /LPF 02/21/19 22:10 Urine Mucus 1+ /HPF 02/21/19 22:10 Active Medications - Current Medications Current Medications: Generic Name Dose Route Start Last Admin Trade Name Freq PRN Reason Stop Dose Admin Acetaminophen 650 mg 02/22/19 00:04 02/22/19 02:22 Tylenol PO 650 mg Q4H PRN Administration Pain MILD(1-3)/Fever >100.5/CASTILLO Carvedilol 6.25 mg 02/22/19 22:00 Coreg PO BID [facility] Piperacillin Sod/Tazobactam Sod 3.375 gm in 50 mls @ 100 mls/hr 02/22/19 06:00 02/22/19 14:20 Zosyn/Ns 3.375gm/50ml IV 100 mls/hr Q8HR FERNANDEZ Administration Potassium Chloride 40 meq/ 520 mls @ 125 mls/hr 02/22/19 14:30 Sodium Chloride IV 02/22/19 18:40 DIRECT FERNANDEZ Potassium Chloride 40 meq/ 520 mls @ 125 mls/hr 02/22/19 14:30 Sodium Chloride IV 02/22/19 18:40 DIRECT [facility] Lisinopril 40 mg 02/23/19 10:00 Zestril PO DAILY [facility] Miscellaneous Medication 137 mcg 02/23/19 10:00 Levothyroxine Sodium [Synthroid] PO DAILY [facility] Morphine Sulfate 2 mg 02/22/19 00:04 Morphine IV Q4H PRN Pain, Moderate (4-6) Ondansetron HCl 4 mg 02/22/19 14:14 Zofran IV Q4H PRN Nausea And Vomiting Pravastatin Sodium 40 mg 02/22/19 22:00 Pravachol PO QHS [facility] Sodium Chloride 10 ml 02/22/19 10:00 02/22/19 10:31 Sodium Chloride Flush Syringe 10 Ml IV 10 ml BID FERNANDEZ Administration Sodium Chloride 10 ml 02/22/19 00:04 02/22/19 14:21 Sodium Chloride Flush Syringe 10 Ml IV 10 ml PRN PRN Administration LINE FLUSH
[2019-02-22] MEDS: ZOFRAN IV PRN ×2 (14:30→23:49)
[2019-02-22] MEDS ORDERED: KCL 40 MEQ in NACL 0.45% 500 ML IV SCH (14:30)
--- NOTE | 2019-02-22 15:16 | Event Note ---
Date: 02/22/19 Contacted for patient with lower GI bleed with internal hemorrhoids and diverticulosis. Agree with GI obtaining CT scan to assess for active bleed. If negative, and further bleeding occurs, can consider GI bleeding study in order to prevent contrast nephropathy.
--- NOTE | 2019-02-22 16:25 | Cat Scan Report ---
PROCEDURE: CT ABDOMEN PELVIS WITH AND WITHOUT IV CONTRAST TECHNIQUE: CT examination of the abdomen before and after IV contrast CT examination of the pelvis before and after IV contrast Sagittal and coronal 2-D image reconstructions. No 3-D angiographic imaging. HISTORY: Rectal bleeding COMPARISONS: 02/18/2019 FINDINGS: No acute lung base finding. Slight degenerative change in the regional skeleton. No acute fracture. S urgically absent gallbladder. Nonspecific diffusely decreased density of liver parenchyma may reflect fatty infiltration. No visual ized focal liver lesion. Normal-appearing adrenals, pancreas, and spleen. Intact normal caliber abdominal aorta with slight ca lcified atherosclerotic plaque. Normal caliber IVC. Normal-appearing kidneys and ureters. Intact ante rior abdominal wall without hernia. No retroperitoneal adenopathy. No evidence of mesenteric mass. No rmal-appearing stomach and duodenum. No small bowel distention in the abdomen and pelvis. No pelvic free fluid. Normal-appearing urinary bladder, and adnexa. No gross ascites, free air, or co lonic distention. Normal-appearing cecum, terminal ileum, and appendix. Nonspecific small hypodense nodule in the uterine parenchyma may be fibroids. Normal-appearing rectum without CT evidence of mass or active bleeding. Slight sigmoid diverticulosis without CT evidence of active bleeding or inflammation. IMPRESSION: Normal-appearing rectum without CT evidence of mass or active bleeding Slight sigmoid diverticulosis without CT evidence of active bleeding or inflammation Suggestion of mild hepatic steatosis Prior cholecystectomy This document is electronically signed by Mikey Aleman MD., February 22 2019 04:23:45 PM ET
--- NOTE | 2019-02-22 18:16 | Event Note ---
Date: 02/22/19 called by PAPITO rock has gram pos cocci in , 1 of 2 bottles ordered vanc
[2019-02-22] MEDS: MORPHINE IV PRN ×2 (18:20→23:00)
[2019-02-22] MEDS ORDERED: VANCOMYCIN 1,750 MG in NACL 0.9% 500 ML 500 ML IV ONE (19:00)
[2019-02-22] MEDS ORDERED: VANCOMYCIN PHARMACY TO DOSE IV SCH (19:00)
[2019-02-22] MEDS: COREG PO SCH (22:59)
[2019-02-22] MEDS: PRAVACHOL PO SCH (23:01)
[2019-02-23 05:36] LABS: Basophils % (Auto) 0.5 % (0.0-1.8); Eosinophils # (Auto) 0.2 K/mm3 (0.0-0.4); Eosinophils % (Auto) 1.8 % (0.0-4.3); Hematocrit 25.5 % (30.3-42.9); Hemoglobin 8.9 gm/dl (10.1-14.3); Lymphocytes # (Auto) 3.6 K/mm3 (1.2-5.4); Lymphocytes % (Auto) 37.8 % (13.4-35.0); Mean Corpuscular HGB Conc 35 % (30-34); Mean Corpuscular Volume 88 fl (79-97); Monocytes # (Auto) 0.5 K/mm3 (0.0-0.8); Monocytes % (Auto) 5.1 % (0.0-7.3); Platelet Count 290 K/mm3 (140-440); Red Cell Distribution Width 14.7 % (13.2-15.2)
[2019-02-23 05:55] LABS: BUN/Creatinine Ratio 9; Blood Urea Nitrogen 7 mg/dL (7-17); Calcium 8.1 mg/dL (8.4-10.2); Hemolysis Index 0
[2019-02-23] MEDS: ZOSYN/NS 3.375GM/50ML 3.375 GM/50 ML BAG IV SCH ×3 (06:08→18:14)
[2019-02-23] MEDS: SYNTHROID PO SCH ×2 (06:08→06:09)
[2019-02-23] MEDS: VANCOMYCIN 1,250 MG in NACL 0.9% 250ML 250 ML IV SCH ×2 (07:23→18:16)
[2019-02-23] MEDS: COREG PO SCH ×2 (09:35→21:07)
[2019-02-23] MEDS: ZESTRIL PO SCH (09:36)
[2019-02-23] MEDS: SODIUM CHLORIDE FLUSH SYRINGE 10 ML IV SCH ×2 (09:39→21:07)
[2019-02-23] MEDS ORDERED: NON-FORMULARY (Levothyroxine Sodium [Synthroid] 137 MCG) PO SCH (10:00)
--- NOTE | 2019-02-23 10:13 | Progress Note ---
Assessment and Plan Assessment and plan: 43F who was recently admitted for GI bleed, who was sent back to ER on the same day by her GI, she had 5 episodes of bloody stool right after dc pmh; htn, chf, hypothryoid, HLD, hypokalemia, migraines Dx acute gi bleed due to diverticulosis acute blood loss anemia -hypokalemia Hypomagnesemia TERESA- vasomotor nephropathy patient does not have dm, recent a1c was 6 on 02/18/19 Plan -transfuse to keep hg above 7 -Gi consulted, may need IR coiling vs partial colectomy if continues to bleed, CT abdomen and pelvis done 02/22 shows no active bleeding -Advance diet per GI -K has been repleted, replete magnesium -TERESA resolved with IVF dvt ppx scds History Interval history: Review of systems Constitutional: No fevers, no malaise, no joint pains CVS: No chest pain, no orthopnea, no dyspnea on exertion, no pedal edema GI: No abdominal pain, no diarrhea, no vomiting, no constipation She has not had any rectal bleeding this morning Respiratory: No shortness of breath, no wheezing, no coughing Hospitalist Physical - Physical exam Narrative exam: General.: Appears well, no distress, nontoxic HEENT: Moist mucous membranes, extraocular muscles intact, no lymphadenopathy Neck: supple Cardiac: S1-S2 heard Lungs: clear to auscultation bilaterally Abdomen: soft , nontender, nondistended, bowel sounds positive Extremities: no edema clubbing or cyanosis Skin: no rash or lesions Neurologic: no gross focal deficits Psych: calm, and cooperative - Constitutional Vitals: Temp Pulse Resp BP Pulse Ox 97.8 F 78 16 111/67 100 02/23/19 08:00 02/23/19 09:00 02/23/19 09:00 02/23/19 09:00 02/23/19 09:36 Results - Labs CBC & Chem 7: 02/23/19 05:17 02/23/19 05:17 Labs: Laboratory Last Values WBC 9.6 K/mm3 (4.5-11.0) 02/23/19 05:17 RBC 2.90 M/mm3 (3.65-5.03) L 02/23/19 05:17 Hgb 8.9 gm/dl (10.1-14.3) L 02/23/19 05:17 Hct 25.5 % (30.3-42.9) L 02/23/19 05:17 MCV 88 fl (79-97) 02/23/19 05:17 MCH 31 pg (28-32) 02/23/19 05:17 MCHC 35 % (30-34) H 02/23/19 05:17 RDW 14.7 % (13.2-15.2) 02/23/19 05:17 Plt Count 290 K/mm3 (140-440) 02/23/19 05:17 Lymph % (Auto) 37.8 % (13.4-35.0) H 02/23/19 05:17 Dare % (Auto) 5.1 % (0.0-7.3) 02/23/19 05:17 Eos % (Auto) 1.8 % (0.0-4.3) 02/23/19 05:17 Baso % (Auto) 0.5 % (0.0-1.8) 02/23/19 05:17 Lymph # 3.6 K/mm3 (1.2-5.4) 02/23/19 05:17 Dare # 0.5 K/mm3 (0.0-0.8) 02/23/19 05:17 Eos # 0.2 K/mm3 (0.0-0.4) 02/23/19 05:17 Baso # 0.0 K/mm3 (0.0-0.1) 02/23/19 05:17 Add Manual Diff Complete 02/22/19 05:19 Total Counted 100 02/22/19 05:19 Seg Neutrophils % 54.8 % (40.0-70.0) 02/23/19 05:17 Seg Neuts % (Manual) 62.0 % (40.0-70.0) 02/22/19 05:19 Band Neutrophils % 0 % 02/22/19 05:19 Lymphocytes % (Manual) 35.0 % (13.4-35.0) 02/22/19 05:19 Reactive Lymphs % (Man) 0 % 02/22/19 05:19 Monocytes % (Manual) 3.0 % (0.0-7.3) 02/22/19 05:19 Eosinophils % (Manual) 0 % (0.0-4.3) 02/22/19 05:19 Basophils % (Manual) 0 % (0.0-1.8) 02/22/19 05:19 Metamyelocytes % 0 % 02/22/19 05:19 Myelocytes % 0 % 02/22/19 05:19 Promyelocytes % 0 % 02/22/19 05:19 Blast Cells % 0 % 02/22/19 05:19 Nucleated RBC % Not Reportable 02/22/19 05:19 Seg Neutrophils # 5.3 K/mm3 (1.8-7.7) 02/23/19 05:17 Seg Neutrophils # Man 9.9 K/mm3 (1.8-7.7) H 02/22/19 05:19 Band Neutrophils # 0.0 K/mm3 02/22/19 05:19 Lymphocytes # (Manual) 5.6 K/mm3 (1.2-5.4) H 02/22/19 05:19 Abs React Lymphs (Man) 0.0 K/mm3 02/22/19 05:19 Monocytes # (Manual) 0.5 K/mm3 (0.0-0.8) 02/22/19 05:19 Eosinophils # (Manual) 0.0 K/mm3 (0.0-0.4) 02/22/19 05:19 Basophils # (Manual) 0.0 K/mm3 (0.0-0.1) 02/22/19 05:19 Metamyelocytes # 0.0 K/mm3 02/22/19 05:19 Myelocytes # 0.0 K/mm3 02/22/19 05:19 Promyelocytes # 0.0 K/mm3 02/22/19 05:19 Blast Cells # 0.0 K/mm3 02/22/19 05:19 WBC Morphology Not Reportable 02/22/19 05:19 Hypersegmented Neuts Not Reportable 02/22/19 05:19 Hyposegmented Neuts Not Reportable 02/22/19 05:19 Hypogranular Neuts Not Reportable 02/22/19 05:19 Smudge Cells Not Reportable 02/22/19 05:19 Toxic Granulation Not Reportable 02/22/19 05:19 Toxic Vacuolation Not Reportable 02/22/19 05:19 Dohle Bodies Not Reportable 02/22/19 05:19 Pelger-Huet Anomaly Not Reportable 02/22/19 05:19 Bambi Rods Not Reportable 02/22/19 05:19 Platelet Estimate Appears normal 02/22/19 05:19 Clumped Platelets Not Reportable 02/22/19 05:19 Plt Clumps, EDTA Not Reportable 02/22/19 05:19 Large Platelets Not Reportable 02/22/19 05:19 Giant Platelets Not Reportable 02/22/19 05:19 Platelet Satelliting Not Reportable 02/22/19 05:19 Plt Morphology Comment Not Reportable 02/22/19 05:19 RBC Morphology Not Reportable 02/22/19 05:19 Dimorphic RBCs Not Reportable 02/22/19 05:19 Polychromasia Not Reportable 02/22/19 05:19 Hypochromasia Not Reportable 02/22/19 05:19 Poikilocytosis Not Reportable 02/22/19 05:19 Anisocytosis 1+ 02/22/19 05:19 Microcytosis Not Reportable 02/22/19 05:19 Macrocytosis Not Reportable 02/22/19 05:19 Spherocytes Not Reportable 02/22/19 05:19 Pappenheimer Bodies Not Reportable 02/22/19 05:19 Sickle Cells Not Reportable 02/22/19 05:19 Target Cells Not Reportable 02/22/19 05:19 Tear Drop Cells Not Reportable 02/22/19 05:19 Ovalocytes Not Reportable 02/22/19 05:19 Helmet Cells Not Reportable 02/22/19 05:19 Eze-Nageezi Bodies Not Reportable 02/22/19 05:19 Wilmer Rings Not Reportable 02/22/19 05:19 Morehouse Cells Not Reportable 02/22/19 05:19 Bite Cells Not Reportable 02/22/19 05:19 Crenated Cell Not Reportable 02/22/19 05:19 Elliptocytes Not Reportable 02/22/19 05:19 Acanthocytes (Spur) Not Reportable 02/22/19 05:19 Rouleaux Not Reportable 02/22/19 05:19 Hemoglobin C Crystals Not Reportable 02/22/19 05:19 Schistocytes Not Reportable 02/22/19 05:19 Malaria parasites Not Reportable 02/22/19 05:19 Ulises Bodies Not Reportable 02/22/19 05:19 Hem Pathologist Commnt No 02/22/19 05:19 PT 13.2 Sec. (12.2-14.9) 02/21/19 18:42 INR 0.95 (0.87-1.13) 02/21/19 18:42 APTT 23.0 Sec. (24.2-36.6) L 02/21/19 18:42 Sodium 140 mmol/L (137-145) 02/23/19 05:17 Potassium 3.6 mmol/L (3.6-5.0) 02/23/19 05:17 Chloride 102.5 mmol/L (98-107) 02/23/19 05:17 Carbon Dioxide 27 mmol/L (22-30) 02/23/19 05:17 Anion Gap 14 mmol/L 02/23/19 05:17 BUN 7 mg/dL (7-17) 02/23/19 05:17 Creatinine 0.8 mg/dL (0.7-1.2) 02/23/19 05:17 Estimated GFR > 60 ml/min 02/23/19 05:17 BUN/Creatinine Ratio 9 % 02/23/19 05:17 Glucose 110 mg/dL (65-100) H 02/23/19 05:17 Lactic Acid 2.90 mmol/L (0.7-2.0) H* 02/21/19 22:51 Calcium 8.1 mg/dL (8.4-10.2) L 02/23/19 05:17 Phosphorus 3.60 mg/dL (2.5-4.5) 02/23/19 05:17 Magnesium 1.60 mg/dL (1.7-2.3) L 02/23/19 05:17 Total Bilirubin < 0.20 mg/dL (0.1-1.2) 02/21/19 18:42 Direct Bilirubin < 0.2 mg/dL (0-0.2) 02/21/19 18:42 Indirect Bilirubin 0.0 mg/dL 02/21/19 18:42 AST 10 units/L (5-40) 02/21/19 18:42 ALT 14 units/L (7-56) 02/21/19 18:42 Alkaline Phosphatase 55 units/L (35-129) 02/21/19 18:42 Total Protein 6.7 g/dL (6.3-8.2) 02/21/19 18:42 Albumin 3.9 g/dL (3.9-5) 02/21/19 18:42 Albumin/Globulin Ratio 1.4 % 02/21/19 18:42 Lipase 221 units/L (13-60) H 02/21/19 18:42 HCG, Qual Negative (Negative) 02/21/19 18:42 Urine Color Yellow (Yellow) 02/21/19 22:10 Urine Turbidity Cloudy (Clear) 02/21/19 22:10 Urine pH 5.0 (5.0-7.0) 02/21/19 22:10 Ur Specific [place] 1.029 (1.003-1.030) 02/21/19 22:10 Urine Protein 100 mg/dl mg/dL (Negative) 02/21/19 22:10 Urine Glucose (UA) Neg mg/dL (Negative) 02/21/19 22:10 Urine Ketones Tr mg/dL (Negative) 02/21/19 22:10 Urine Blood Sm (Negative) 02/21/19 22:10 Urine Nitrite Neg (Negative) 02/21/19 22:10 Urine Bilirubin Neg (Negative) 02/21/19 22:10 Urine Urobilinogen < 2.0 mg/dL (<2.0) 02/21/19 22:10 Ur Leukocyte Esterase Sm (Negative) 02/21/19 22:10 Urine WBC (Auto) 12.0 /HPF (0.0-6.0) H 02/21/19 22:10 Urine RBC (Auto) 4.0 /HPF (0.0-6.0) 02/21/19 22:10 U Epithel Cells (Auto) 15.0 /HPF (0-13.0) H 02/21/19 22:10 Urine Bacteria (Auto) 1+ /HPF (Negative) 02/21/19 22:10 Hyaline Casts 1 /LPF 02/21/19 22:10 Urine Mucus 1+ /HPF 02/21/19 22:10 Active Medications - Current Medications Current Medications: Generic Name Dose Route Start Last Admin Trade Name Freq PRN Reason Stop Dose Admin Acetaminophen 650 mg 02/22/19 00:04 02/22/19 02:22 Tylenol PO 650 mg Q4H PRN Administration Pain MILD(1-3)/Fever >100.5/CASTILLO Carvedilol 6.25 mg 02/22/19 22:00 02/23/19 09:35 Coreg PO 6.25 mg BID FERNANDEZ Administration Piperacillin Sod/Tazobactam Sod 3.375 gm in 50 mls @ 100 mls/hr 02/22/19 06:00 02/23/19 06:08 Zosyn/Ns 3.375gm/50ml IV 100 mls/hr Q8HR FERNANDEZ Administration Vancomycin HCl 1,250 mg/ 275 mls @ 166.667 mls/hr 02/23/19 07:00 02/23/19 07:23 Sodium Chloride IV 166.667 mls/hr Q12H FERNANDEZ Administration Levothyroxine Sodium 112 mcg 02/23/19 06:00 02/23/19 06:08 Synthroid PO 112 mcg DAILY@0600 FERNANDEZ Administration Levothyroxine Sodium 25 mcg 02/23/19 06:00 02/23/19 06:09 Synthroid PO 25 mcg DAILY@0600 FERNANDEZ Administration Lisinopril 40 mg 02/23/19 10:00 02/23/19 09:36 Zestril PO 40 mg DAILY FERNANDEZ Administration Morphine Sulfate 2 mg 02/22/19 00:04 02/22/19 23:00 Morphine IV 2 mg Q4H PRN Administration Pain, Moderate (4-6) Ondansetron HCl 4 mg 02/22/19 14:14 02/22/19 23:49 Zofran IV 4 mg Q4H PRN Administration Nausea And Vomiting Pravastatin Sodium 40 mg 02/22/19 22:00 02/22/19 23:01 Pravachol PO 40 mg QHS FERNANDEZ Administration Sodium Chloride 10 ml 02/22/19 10:00 02/23/19 09:39 Sodium Chloride Flush Syringe 10 Ml IV 10 ml BID FERNANDEZ Administration Sodium Chloride 10 ml 02/22/19 00:04 02/22/19 14:21 Sodium Chloride Flush Syringe 10 Ml IV 10 ml PRN PRN Administration LINE FLUSH
[2019-02-23] MEDS ORDERED: MAGNESIUM SULFATE 2GM/50ML 2 GM/50 ML BAG IV ONE (12:00)
--- NOTE | 2019-02-23 16:04 | Gastroenterology Progress Note ---
Assessment and Plan # Lower GI bleed - s/p EGD and colonoscopy on 02/19/2019 showing unremarkable EGD exam and colonoscopy showing right sided diverticulosis. - recurrent bleeding after discharge from last admission. - s/p CTA negative for active bleeding. - H/H stable. - appears to have more old residual blood per rectum. Rec: - monitor H/H - advance diet. - in case of signs of active recurrent bleeding, will plan for bleeding scan. - will follow. - Patient Problems (1) Acute lower GI bleeding Current Visit: Yes Status: Acute (2) Abdominal pain Current Visit: No Status: Acute (3) GI bleed Current Visit: No Status: Acute Subjective Date of service: 02/23/19 (.) Interval history: Patient underwent CT angio, which was negative for active bleeding. Reports having less frequent stools and more dark blood in the stool. Objective - Constitutional Vitals: Temp Pulse Resp BP Pulse Ox 98.7 F 74 12 102/63 99 02/23/19 12:00 02/23/19 14:00 02/23/19 14:00 02/23/19 14:00 02/23/19 14:00 - EENT ENT: hearing intact, clear oral mucosa, dentition normal - Neck Neck: supple, normal ROM - Respiratory Respiratory effort: normal Respiratory: bilateral: CTA - Cardiovascular Rhythm: regular - Extremities Extremities: pulses intact, No edema, normal color, Full ROM - Gastrointestinal General gastrointestinal: Present: soft, non-tender, non-distended, normal bowel sounds - Integumentary Integumentary: Present: clear, warm, dry - Neurologic Neurological: alert and oriented x3 - Labs CBC & Chem 7: 02/23/19 05:17 02/23/19 05:17 Labs: Laboratory Results - last 24 hr 02/23/19 02/23/19 05:17 05:17 WBC 9.6 RBC 2.90 L Hgb 8.9 L Hct 25.5 L MCV 88 MCH 31 MCHC 35 H RDW 14.7 Plt Count 290 Lymph % (Auto) 37.8 H [place] % (Auto) 5.1 Eos % (Auto) 1.8 Baso % (Auto) 0.5 Lymph # 3.6 Atkinson # 0.5 Eos # 0.2 Baso # 0.0 Seg Neutrophils % 54.8 Seg Neutrophils # 5.3 Sodium 140 Potassium 3.6 Chloride 102.5 Carbon Dioxide 27 Anion Gap 14 BUN 7 Creatinine 0.8 Estimated GFR > 60 BUN/Creatinine Ratio 9 Glucose 110 H Calcium 8.1 L Phosphorus 3.60 Magnesium 1.60 L - Imaging CT scan: report reviewed
[2019-02-23] MEDS: PRAVACHOL PO SCH (21:07)
[2019-02-23] MEDS: TYLENOL PO PRN (21:08)
[2019-02-24] MEDS: ZOSYN/NS 3.375GM/50ML 3.375 GM/50 ML BAG IV SCH ×3 (00:36→12:30)
[2019-02-24 04:31] LABS: Basophils % (Auto) 0.3 % (0.0-1.8); Eosinophils # (Auto) 0.1 K/mm3 (0.0-0.4); Eosinophils % (Auto) 1.5 % (0.0-4.3); Hemoglobin 8.4 gm/dl (10.1-14.3); Lymphocytes # (Auto) 3.1 K/mm3 (1.2-5.4); Lymphocytes % (Auto) 34.2 % (13.4-35.0); Mean Corpuscular HGB Conc 35 % (30-34); Mean Corpuscular Volume 87 fl (79-97); Monocytes # (Auto) 0.5 K/mm3 (0.0-0.8); Monocytes % (Auto) 5.5 % (0.0-7.3); Platelet Count 290 K/mm3 (140-440); Red Blood Count 2.77 M/mm3 (3.65-5.03)
[2019-02-24 04:41] LABS: BUN/Creatinine Ratio 9; Blood Urea Nitrogen 8 mg/dL (7-17); Calcium 8.2 mg/dL (8.4-10.2); Hemolysis Index 2
[2019-02-24] MEDS: SYNTHROID PO SCH ×2 (05:11→05:12)
[2019-02-24] MEDS: VANCOMYCIN 1,250 MG in NACL 0.9% 250ML 250 ML IV SCH (07:48)
[2019-02-24] MEDS: ZESTRIL PO SCH (09:28)
[2019-02-24 09:29] VITALS: BP 129/103
[2019-02-24] MEDS: SODIUM CHLORIDE FLUSH SYRINGE 10 ML IV SCH (09:29)
[2019-02-24] MEDS: COREG PO SCH (09:29)
--- NOTE | 2019-02-24 09:39 | Discharge Summary ---
Providers - Providers Date of Admission: 02/21/19 23:49 Attending physician: LUISA CHNU MD 02/21/19 21:51 Consult to Physician [CONS] Stat Comment: Dr. Berry spoke with Dr. Menchaca @ [phone] Consulting Provider: FLOR MENCHACA Physician Instructions: Reason For Exam: gi bleed 02/23/19 10:11 Consult to Physician [CONS] Routine Comment: Consulting Provider: REMEDIOS LIANG Physician Instructions: Reason For Exam: gram pos bactermia Hospitalization Condition: Stable Hospital course: 43F who was recently admitted for GI bleed, who was sent back to ER on the same day by her GI, she had 5 episodes of bloody stool right after dc pmh; htn, chf, hypothryoid, HLD, hypokalemia, migraines Dx acute gi bleed due to diverticulosis acute blood loss anemia -hypokalemia Hypomagnesemia TERESA- vasomotor nephropathy patient does not have dm, recent a1c was 6 on 02/18/19 Hospital course The patient was admitted to the hospital, she was kept nothing by mouth, she went on to have CT angiogram of the abdomen and pelvis that showed no acute bleeding. Rectal bleeding appeared to resolve. Hemoglobin dropped slightly but was stable. Her diet was advanced slowly, she tolerated it well and no further bleeding. GI bleed is most likely due to diverticulosis, diverticular bleed Potassium was repleted,, magnesium was repleted, kidney function normalized after receiving IV fluids. Disposition: DC-01 TO HOME OR SELFCARE Time spent for discharge: 33 mins Core Measure Documentation - Palliative Care Palliative Care/ Comfort Measures: Not Applicable - Core Measures Any of the following diagnoses?: none Exam - Constitutional Vitals: Temp Pulse Resp BP Pulse Ox 98.2 F 85 14 129/103 99 02/24/19 08:00 02/24/19 09:29 02/24/19 08:00 02/24/19 09:29 02/24/19 08:00 General appearance: Present: no acute distress, well-nourished - EENT Eyes: Present: PERRL ENT: hearing intact, clear oral mucosa - Neck Neck: Present: supple, normal ROM - Respiratory Respiratory effort: normal Respiratory: bilateral: CTA - Cardiovascular Heart Sounds: Present: S1 & S2. Absent: rub, click - Extremities Extremities: pulses symmetrical, No edema Peripheral Pulses: within normal limits - Abdominal General gastrointestinal: Present: soft, non-tender, non-distended, normal bowel sounds Female genitourinary: Present: normal - Integumentary Integumentary: Present: clear, warm, dry - Musculoskeletal Musculoskeletal: gait normal, strength equal bilaterally - Psychiatric Psychiatric: appropriate mood/affect, intact judgment & insight - Neurologic Neurologic: CNII-XII intact, moves all extremities Plan Follow up with: EWA IBRAHIM [Other] - 3-5 Days Forms: Accompanied Note Prescriptions: Ferrous Sulfate [Feosol 325 MG tab] 325 mg PO BID #60 tablet
[2019-02-24] MEDS ORDERED: KCL 40 MEQ in NACL 0.45% 500 ML IV SCH (09:45)
[2019-02-24] MEDS ORDERED: K-DUR PO SCH (10:00)
--- NOTE | 2019-02-24 12:17 | Gastroenterology Progress Note ---
Assessment and Plan Prior (last admission) bleed was consistent with diverticular bleed given amount of blood loss Currently symptoms more consistent with hemorrhoidal bleed as Hgb stable and pt not having many episodes of significant rectal bleeding I gave her red flag signs to monitor for at home; she can be discharged with outpatient follow up and hemorrhoid treatment in the office - Patient Problems (1) Acute lower GI bleeding Current Visit: Yes Status: Acute (2) GI bleed Current Visit: No Status: Acute (3) Rectal bleeding Current Visit: No Status: Acute Subjective Date of service: 02/24/19 Principal diagnosis: GI bleed Interval history: Patient reports 1 episode of BM in the last 24 hours, with some blood in the bowl. no lightheadedness no dizziness Objective - Constitutional Vitals: Temp Pulse Resp BP Pulse Ox 98.2 F 85 14 129/103 99 02/24/19 08:00 02/24/19 09:29 02/24/19 08:00 02/24/19 09:29 02/24/19 08:00 General appearance: no acute distress - Cardiovascular Rhythm: regular - Gastrointestinal General gastrointestinal: Present: soft, non-tender - Labs CBC & Chem 7: 02/24/19 03:48 02/24/19 03:48 Labs: Laboratory Results - last 24 hr 02/24/19 02/24/19 02/24/19 03:48 03:48 08:43 WBC 9.0 RBC 2.77 L Hgb 8.4 L Hct 24.0 L MCV 87 MCH 30 MCHC 35 H RDW 14.0 Plt Count 290 Lymph % (Auto) 34.2 [place] % (Auto) 5.5 Eos % (Auto) 1.5 Baso % (Auto) 0.3 Lymph # 3.1 [place] # 0.5 Eos # 0.1 Baso # 0.0 Seg Neutrophils % 58.5 Seg Neutrophils # 5.3 Sodium 138 Potassium 3.1 L Chloride 100.4 Carbon Dioxide 28 Anion Gap 13 BUN 8 Creatinine 0.9 Estimated GFR > 60 BUN/Creatinine Ratio 9 Glucose 111 H Calcium 8.2 L Magnesium 1.80 Vancomycin Trough 33.6 H
== END 2019-02-24 05:00 | disposition home or self-care (01) | DRG 377 ==
LOC: ED 18:09 → IMCU 23:49
PROVIDERS: ADMIT Internal Medicine; ATTEND Internal Medicine
DX: K57.31 Diverticulosis of large intestine without perforation or abscess with bleeding (principal); N17.0 Acute kidney failure with tubular necrosis; N39.0 Urinary tract infection, site not specified; D62 Acute posthemorrhagic anemia; E78.00 Pure hypercholesterolemia, unspecified; G43.909 Migraine, unspecified, not intractable, without status migrainosus; E87.6 Hypokalemia; K64.8 Other hemorrhoids; E83.42 Hypomagnesemia; I50.9 Heart failure, unspecified; I11.0 Hypertensive heart disease with heart failure; E03.9 Hypothyroidism, unspecified; Z90.89 Acquired absence of other organs; Z90.49 Acquired absence of other specified parts of digestive tract; Z82.49 Family history of ischemic heart disease and other diseases of the circulatory system
CPT/HCPCS: 36415; 74174; 80048; 80076; 80202; 81001; 82140; 82270; 83690; 83735; 84100; 84703; 85007; 85014; 85018; 85025; 85610; 85730; 87040; 87045; 87086; 96365; 96375; G0378; A9270-GY; J2270; J2405; J2543; J3370; J3475; J3480; J7030; J7040; J7050; Q9967

== ENCOUNTER 2022-03-18 08:46 | Emergency (ER) | payer SELFPAY ==
--- NOTE | 2022-03-18 11:52 | Emergency Department Report ---
ED Female HPI - General Chief complaint: Abdominal Pain Stated complaint: SIDE PAIN LEG CRAMPS Source: patient Mode of arrival: Ambulatory Limitations: No Limitations - History of Present Illness Initial comments: 46-year-old female presents to the ED complaining of right flank pain radiating to the pelvis area x3. She states pain is current 5 out of 10. Patient states that she also has a foul smell urine x3 weeks. She denies any dysuria. Patient also complaining of leg cramps at the end of her workday, but denies any leg cramps at present time. Patient denies any nausea or vomiting or diarrhea. She is alert and oriented x3. No acute distress noted no ill appearance noted. Onset/Timin -: week(s) Severity scale (0 -10): 5 Quality: aching Improves with: none Worsens with: none Are you Now?: No Associated Symptoms: denies other symptoms - Related Data Home Medications Medication Instructions Recorded Confirmed Last Taken Furosemide 40 mg PO DAILY 06/30/16 02/21/19 06/07/18 Lisinopril 40 mg PO DAILY 06/30/16 02/21/19 06/07/18 carvediloL [Carvedilol] 6.25 mg PO BID 06/30/16 02/21/19 06/07/18 Levothyroxine Sodium [Synthroid] 137 mcg PO DAILY 06/08/18 02/21/19 06/07/18 Potassium Chloride [K-Dur] 10 meq PO BID 06/08/18 02/21/19 06/07/18 Pravastatin [Pravachol] 40 mg PO QHS 06/08/18 02/21/19 06/07/18 Previous Rx's Medication Instructions Recorded Last Taken Type Ferrous Sulfate [Feosol 325 MG tab] 325 mg PO BID #60 tablet 02/24/19 Unknown Rx Nitrofurantoin [place]/M-Cryst 100 mg PO Q12HR 10 Days #20 capsule 03/18/22 Unknown Rx [Macrobid CAP] Potassium Chloride [K-Dur] 20 meq PO BID 3 Days #6 tab 03/18/22 Unknown Rx Allergies Allergy/AdvReac Type Severity Reaction Status Date / Time No Known Allergies Allergy Verified 02/21/19 18:11 ED Review of Systems ROS: Stated complaint: SIDE PAIN LEG CRAMPS Other details as noted in HPI Constitutional: denies: chills, fever Eyes: denies: eye pain, eye discharge, vision change ENT: denies: ear pain, throat pain Respiratory: denies: cough, shortness of breath, wheezing Cardiovascular: denies: chest pain, palpitations Endocrine: no symptoms reported Gastrointestinal: denies: abdominal pain, nausea, diarrhea Genitourinary: denies: urgency, dysuria, discharge Musculoskeletal: denies: back pain, joint swelling, arthralgia Skin: denies: rash, lesions Neurological: denies: headache, weakness, paresthesias Psychiatric: denies: anxiety, depression Hematological/Lymphatic: denies: easy bleeding, easy bruising ED Past Medical Hx - Past Medical History Hx Hypertension: Yes Hx Congestive Heart Failure: Yes Hx Diabetes: No Hx Seizures: No Hx Asthma: No Hx COPD: No Hx Dementia: No Hx HIV: No Additional medical history: hypothyroid, high cholesterol, low potassium, migraines (used to take Imitrex) - Surgical History Hx Cholecystectomy: Yes Additional Surgical History: C-sections, thyroidectomy - Social History Smoking Status: Never Smoker Substance Use Type: Alcohol - Medications Home Medications: Home Medications Medication Instructions Recorded Confirmed Last Taken Type Furosemide 40 mg PO DAILY 06/30/16 02/21/19 06/07/18 History Lisinopril 40 mg PO DAILY 06/30/16 02/21/19 06/07/18 History carvediloL [Carvedilol] 6.25 mg PO BID 06/30/16 02/21/19 06/07/18 History Levothyroxine Sodium [Synthroid] 137 mcg PO DAILY 06/08/18 02/21/19 06/07/18 History Potassium Chloride [K-Dur] 10 meq PO BID 06/08/18 02/21/19 06/07/18 History Pravastatin [Pravachol] 40 mg PO QHS 06/08/18 02/21/19 06/07/18 History Ferrous Sulfate [Feosol 325 MG tab] 325 mg PO BID #60 tablet 02/24/19 Unknown Rx Nitrofurantoin [place]/M-Cryst 100 mg PO Q12HR 10 Days #20 capsule 03/18/22 Unknown Rx [Macrobid CAP] Potassium Chloride [K-Dur] 20 meq PO BID 3 Days #6 tab 03/18/22 Unknown Rx ED Physical Exam - General Limitations: No Limitations General appearance: alert, in no apparent distress - Head Head exam: Present: atraumatic, normocephalic - Eye Eye exam: Present: normal appearance - ENT ENT exam: Present: mucous membranes moist - Neck Neck exam: Present: normal inspection - Respiratory Respiratory exam: Present: normal lung sounds bilaterally. Absent: respiratory distress - Cardiovascular Cardiovascular Exam: Present: regular rate, normal rhythm. Absent: systolic murmur, diastolic murmur, rubs, gallop - GI/Abdominal GI/Abdominal exam: Present: soft, normal bowel sounds - Extremities Exam Extremities exam: Present: normal inspection - Back Exam Back exam: Present: normal inspection - Neurological Exam Neurological exam: Present: alert, oriented X3 - Psychiatric Psychiatric exam: Present: normal affect, normal mood - Skin Skin exam: Present: warm, dry, intact, normal color. Absent: rash ED Course Vital Signs 03/18/22 03/18/22 08:58 13:01 Temperature 98.1 F 98.1 F Pulse Rate 66 77 Respiratory 16 16 Rate Blood Pressure 150/90 124/75 [Left] O2 Sat by Pulse 99 98 Oximetry ED Medical Decision Making - Lab Data Result diagrams: 03/18/22 11:35 03/18/22 11:35 - Medical Decision Making 46-year-old female presents to the ED complaining of right flank pain radiating to the pelvis area x3. She states pain is current 5 out of 10. Patient states that she also has a foul smell urine x3 weeks. She denies any dysuria. Patient also complaining of leg cramps at the end of her workday, but denies any leg cr amps at present time. Patient denies any nausea or vomiting or diarrhea. She is alert and oriented x3. No acute distress noted no ill appearance noted. Physical examination is unremarkable. Potassium is 3.1 replaced with K-Dur 40 mg. Rechecked the patient is resting quietly quietly and comfortable and feeling better. I discussed the results of diagnostic study, my clinical impression and the plan for further treatment with the patient. Patient agrees with plan and discharge at this present time. All question addressed. I have given the patient instruction regarding a diagnosis ,expectation ,follow- up and return precaution. I explained to the patient that emergent condition may arise and to return to the ED for new worsen and any new persisting condition. I have explained the importance of following up with the primary care physician or referral physician listed below has instructed. The patient verbalized understanding of discharge instruction. Abnormal Lab Results 03/18/22 03/18/22 03/18/22 11:35 11:35 Unknown WBC 7.9 RBC 4.60 Hgb 14.0 Hct 40.0 MCV 87 MCH 30 MCHC 35 H RDW 13.4 Plt Count 229 Lymph % (Auto) 33.9 [place] % (Auto) 5.7 Eos % (Auto) 1.6 Baso % (Auto) 0.5 Lymph # (Auto) 2.7 [place] # (Auto) 0.4 Eos # (Auto) 0.1 Baso # (Auto) 0.0 Seg Neutrophils % 58.3 Seg Neutrophils # 4.6 Sodium 135 L Potassium 3.1 L Chloride 95.1 L Carbon Dioxide 33 H Anion Gap 10 BUN 11 Creatinine 0.7 Estimated GFR > 60 BUN/Creatinine Ratio 16 Glucose 147 H Calcium 8.9 Total Bilirubin 0.30 AST 12 ALT 16 Alkaline Phosphatase 69 Total Protein 7.0 Albumin 4.4 Albumin/Globulin Ratio 1.7 Urine Color Straw Urine Turbidity Clear Urine pH 6.0 Ur Specific [place] 1.008 Urine Protein <15 mg/dl Urine Glucose (UA) Neg Urine Ketones Neg Urine Blood Sm Urine Nitrite Neg Urine Bilirubin Neg Urine Urobilinogen < 2.0 Ur Leukocyte Esterase Neg Urine WBC (Auto) < 1.0 Urine RBC (Auto) 2.0 U Epithel Cells (Auto) 1.0 Hyaline Casts 2 Urine Mucus Few Critical care attestation.: If time is entered above; I have spent that time in minutes in the direct care of this critically ill patient, excluding procedure time. ED Disposition Clinical Impression: Hypokalemia, Acute urinary tract infection Disposition: 01 HOME / SELF CARE / HOMELESS Is pt being admited?: No Does the pt Need Aspirin: No Condition: Stable Instructions: Hypokalemia, Urinary Tract Infection, Adult, [id number], Abdominal Pain (ED) Additional Instructions: Take medication as prescribed Take a multivitamin daily return to the ED for any worsening symptoms Prescriptions: Potassium Chloride [K-Dur] 20 meq PO BID 3 Days #6 tab Nitrofurantoin [place]/M-Cryst [Macrobid CAP] 100 mg PO Q12HR 10 Days #20 capsule Referrals: PRIMARY CARE, [Primary Care Provider] - 3-5 Days LATOSHA CARRERO MD [Staff Physician] - 3-5 Days Forms: Work/School Release Form(ED) Time of Disposition: 12:46
[2022-03-18 12:07] LABS: Bilirubin,Urine NEG (Negative); Blood,Urine SM (Negative); Color,Urine Straw (Yellow); Hyaline Casts,Urine 2 /LPF; Mucus,Urine FEW /HPF; Protein,Urine <15 mg/dL mg/dL (Negative); Urobilinogen,Urine < 2.0 mg/dL (<2.0); WBC,Urine < 1.0 /HPF (0.0-6.0)
[2022-03-18 12:08] LABS: Basophils % (Auto) 0.5 % (0.0-1.8); Eosinophils # (Auto) 0.1 K/mm3 (0.0-0.4); Eosinophils % (Auto) 1.6 % (0.0-4.3); Lymphocytes # (Auto) 2.7 K/mm3 (1.2-5.4); Lymphocytes % (Auto) 33.9 % (13.4-35.0); Mean Corpuscular HGB Conc 35 % (30-34); Mean Corpuscular Volume 87 fl (79-97); Monocytes # (Auto) 0.4 K/mm3 (0.0-0.8); Monocytes % (Auto) 5.7 % (0.0-7.3); Platelet Count 229 K/mm3 (140-440); Red Cell Distribution Width 13.4 % (13.2-15.2)
[2022-03-18 12:14] LABS: Alanine Aminotransferase 16 units/L (7-56); Albumin 4.4 g/dL (3.9-5); Blood Urea Nitrogen 11 mg/dL (7-17); Calcium 8.9 mg/dL (8.4-10.2); Hemolysis Index 15
[2022-03-18 12:16] LABS: BUN/Creatinine Ratio 16
[2022-03-18] MEDS ORDERED: POTASSIUM CHLORIDE ER 20 MEQ TAB PO ONE (12:32)
[2022-03-18 13:03] VITALS: BP 124/75
== END 2022-03-18 13:04 | disposition home or self-care (01) ==
LOC: ED 08:46
DX: I10 Essential (primary) hypertension (principal)
CPT/HCPCS: 36415; 80053; 81001; 85025; 99283

== ENCOUNTER 2022-03-30 04:11 | Emergency (ER) | payer SELFPAY ==
[2022-03-30 07:16] LABS: Hematocrit 40.5 % (30.3-42.9); Hemoglobin 14.5 gm/dl (10.1-14.3); Mean Corpuscular HGB Conc 36 % (30-34); Mean Corpuscular Volume 86 fl (79-97); Platelet Count 250 K/mm3 (140-440); Red Blood Count 4.71 M/mm3 (3.65-5.03); Red Cell Distribution Width 13.6 % (13.2-15.2)
[2022-03-30 07:45] LABS: Alanine Aminotransferase 15 units/L (7-56); Albumin 4.3 g/dL (3.9-5); Blood Urea Nitrogen 15 mg/dL (7-17); Calcium 8.8 mg/dL (8.4-10.2); Hemolysis Index 9
[2022-03-30 07:50] LABS: BUN/Creatinine Ratio 21
--- NOTE | 2022-03-30 13:13 | Cat Scan Report ---
CT ABDOMEN AND PELVIS WITH CONTRAST INDICATION: upper abdoominal pain and elevated lipase. TECHNIQUE: Axial CT images were obtained through the abdomen and pelvis after IV contrast. All CT scans at this location are performed using CT dose reduction for ALARA by means of automated exposure control. COMPARISON: CT abdomen pelvis 02/22/2019 FINDINGS: LOWER CHEST: No significant abnormality. LIVER: No significant abnormality. GALLBLADDER: Absent BILE DUCTS: No significant abnormality. PANCREAS: No significant abnormality. SPLEEN: No significant abnormality. ADRENALS: No significant abnormality. RIGHT KIDNEY and URETER: No significant abnormality. LEFT KIDNEY and URETER: No significant abnormality. STOMACH and SMALL BOWEL: No significant abnormality. COLON: No significant abnormality. APPENDIX: No significant abnormality. PERITONEUM: No free fluid. No free air. No fluid collection. LYMPH NODES: No significant adenopathy. AORTA and ARTERIES: No significant abnormality. IVC and VEINS: No significant abnormality. URINARY BLADDER: No significant abnormality. REPRODUCTIVE ORGANS: No significant abnormality. ADDITIONAL FINDINGS: None. SKELETAL SYSTEM: No significant abnormality. IMPRESSION: 1. No significant abnormality. No CT evidence for pancreatitis Signer Name: Aj Dunne MD Signed: 03/30/2022 1:08 PM Workstation Name: [id number]
--- NOTE | 2022-03-30 13:50 | Emergency Department Report ---
ED Abdominal Pain HPI - General Chief Complaint: Abdominal Pain Stated Complaint: RT SIDE ABD PAIN Time Seen by Provider: 03/30/22 11:09 Source: patient Mode of arrival: Ambulatory Limitations: No Limitations - History of Present Illness Initial Comments: Oh 6-year-old female presents emerged from complaining of pain to the mid upper abdomen radiating to the right flank of unknown etiology she was recently seen evaluate emergency department on March 18 when she was evaluated to have a urinary tract infection and treated with Macrobid. Upon evaluation of her laboratory findings all labs were relatively benign with exception of a potassium of 3.1 nonetheless she was started on Macrobid in conjunction with the potassium for which she reports being compliant. She reports no hemoptysis no hematemesis hematochezia, no no no dark tarry stools. No fever, chills, sweats. MD Complaint: abdominal pain Location: epigastric, R flank Radiation: R flank Severity: moderate Severity scale (0 -10): 5 Quality: aching, dull Consistency: intermittent Worsens With: nothing, movement (And palpation) Context: recent antibiotic use Associated Symptoms: denies: fever, dysuria, hematemesis, hematuria, anorexia, syncope - Related Data Home Medications Medication Instructions Recorded Confirmed Last Taken Furosemide 40 mg PO DAILY 06/30/16 03/30/22 06/07/18 Lisinopril 40 mg PO DAILY 06/30/16 03/30/22 06/07/18 carvediloL [Carvedilol] 6.25 mg PO BID 06/30/16 03/30/22 06/07/18 Levothyroxine Sodium [Synthroid] 137 mcg PO DAILY 06/08/18 03/30/22 06/07/18 Potassium Chloride [K-Dur] 10 meq PO BID 06/08/18 03/30/22 06/07/18 Pravastatin [Pravachol] 40 mg PO QHS 06/08/18 03/30/22 06/07/18 Previous Rx's Medication Instructions Recorded Last Taken Type Ferrous Sulfate [Feosol 325 MG tab] 325 mg PO BID #60 tablet 02/24/19 Unknown Rx Nitrofurantoin [place]/M-Cryst 100 mg PO Q12HR 10 Days #20 capsule 03/18/22 Unknown Rx [Macrobid CAP] Potassium Chloride [K-Dur] 20 meq PO BID 3 Days #6 tab 03/18/22 Unknown Rx Hyoscyamine Subl [Levsin Sl 0.125 0.125 mg SL Q6HR PRN #20 tab 03/30/22 Unknown Rx TAB] Allergies Allergy/AdvReac Type Severity Reaction Status Date / Time No Known Allergies Allergy Verified 03/30/22 11:39 ED Review of Systems ROS: Stated complaint: RT SIDE ABD PAIN Other details as noted in HPI Comment: All other systems reviewed and negative ED Past Medical Hx - Past Medical History Hx Hypertension: Yes Hx Congestive Heart Failure: Yes Hx Diabetes: No Hx Seizures: No Hx Asthma: No Hx COPD: No Hx Dementia: No Hx HIV: No Additional medical history: hypothyroid, high cholesterol, low potassium, migraines (used to take Imitrex) - Surgical History Hx Cholecystectomy: Yes Additional Surgical History: C-sections, thyroidectomy - Social History Smoking Status: Never Smoker Substance Use Type: None - Medications Home Medications: Home Medications Medication Instructions Recorded Confirmed Last Taken Type Furosemide 40 mg PO DAILY 06/30/16 03/30/22 06/07/18 History Lisinopril 40 mg PO DAILY 06/30/16 03/30/22 06/07/18 History carvediloL [Carvedilol] 6.25 mg PO BID 06/30/16 03/30/22 06/07/18 History Levothyroxine Sodium [Synthroid] 137 mcg PO DAILY 06/08/18 03/30/22 06/07/18 History Potassium Chloride [K-Dur] 10 meq PO BID 06/08/18 03/30/22 06/07/18 History Pravastatin [Pravachol] 40 mg PO QHS 06/08/18 03/30/22 06/07/18 History Ferrous Sulfate [Feosol 325 MG tab] 325 mg PO BID #60 tablet 02/24/19 03/30/22 Unknown Rx Nitrofurantoin [place]/M-Cryst 100 mg PO Q12HR 10 Days #20 capsule 03/18/22 03/30/22 Unknown Rx [Macrobid CAP] Potassium Chloride [K-Dur] 20 meq PO BID 3 Days #6 tab 03/18/22 03/30/22 Unknown Rx Hyoscyamine Subl [Levsin Sl 0.125 0.125 mg SL Q6HR PRN #20 tab 03/30/22 Unknown Rx TAB] ED Physical Exam - General Limitations: No Limitations General appearance: alert, in no apparent distress - Head Head exam: Present: atraumatic, normocephalic - Eye Eye exam: Present: normal appearance - ENT ENT exam: Present: mucous membranes moist - Neck Neck exam: Present: normal inspection - Respiratory Respiratory exam: Present: normal lung sounds bilaterally. Absent: respiratory distress - Cardiovascular Cardiovascular Exam: Present: regular rate, normal rhythm. Absent: systolic murmur, diastolic murmur, rubs, gallop - GI/Abdominal GI/Abdominal exam: Present: soft, tenderness (The epigastric region with palpation.), normal bowel sounds, other. Absent: guarding, rebound, hypoactive bowel sounds, organomegaly, mass, bruit - Extremities Exam Extremities exam: Present: normal inspection - Back Exam Back exam: Present: normal inspection - Neurological Exam Neurological exam: Present: alert, oriented X3 - Psychiatric Psychiatric exam: Present: normal affect, normal mood - Skin Skin exam: Present: warm, dry, intact, normal color. Absent: rash ED Course Vital Signs 03/30/22 03/30/22 03/30/22 04:43 11:36 11:37 Temperature 98.2 F 98.7 F Pulse Rate 78 79 Respiratory 16 18 Rate Blood Pressure 130/79 142/98 [Right] O2 Sat by Pulse 97 99 99 Oximetry ED Medical Decision Making - Lab Data Result diagrams: 03/30/22 06:52 03/30/22 06:52 Lab Results 03/30/22 03/30/22 03/30/22 Range/Units 06:52 06:52 06:52 WBC 9.8 (4.5-11.0) K/mm3 RBC 4.71 (3.65-5.03) M/mm3 Hgb 14.5 H (10.1-14.3) gm/dl Hct 40.5 (30.3-42.9) % MCV 86 (79-97) fl MCH 31 (28-32) pg MCHC 36 H (30-34) % RDW 13.6 (13.2-15.2) % Plt Count 250 (140-440) K/mm3 Sodium 140 (137-145) mmol/L Potassium 3.5 L (3.6-5.0) mmol/L Chloride 99.6 (98-107) mmol/L Carbon Dioxide 29 (22-30) mmol/L Anion Gap 15 mmol/L BUN 15 (7-17) mg/dL Creatinine 0.7 (0.6-1.2) mg/dL Estimated GFR > 60 ml/min BUN/Creatinine Ratio 21 % Glucose 106 H (65-100) mg/dL Calcium 8.8 (8.4-10.2) mg/dL Total Bilirubin 0.20 (0.1-1.2) mg/dL AST 11 (5-40) units/L ALT 15 (7-56) units/L Alkaline Phosphatase 67 (35-129) units/L Total Protein 7.2 (6.3-8.2) g/dL Albumin 4.3 (3.9-5) g/dL Albumin/Globulin Ratio 1.5 % Lipase 102 H (13-60) units/L HCG, Qual (Negative) 03/30/22 Range/Units 06:52 WBC (4.5-11.0) K/mm3 RBC (3.65-5.03) M/mm3 Hgb (10.1-14.3) gm/dl Hct (30.3-42.9) % MCV (79-97) fl MCH (28-32) pg MCHC (30-34) % RDW (13.2-15.2) % Plt Count (140-440) K/mm3 Sodium (137-145) mmol/L Potassium (3.6-5.0) mmol/L Chloride (98-107) mmol/L Carbon Dioxide (22-30) mmol/L Anion Gap mmol/L BUN (7-17) mg/dL Creatinine (0.6-1.2) mg/dL Estimated GFR ml/min BUN/Creatinine Ratio % Glucose (65-100) mg/dL Calcium (8.4-10.2) mg/dL Total Bilirubin (0.1-1.2) mg/dL AST (5-40) units/L ALT (7-56) units/L Alkaline Phosphatase (35-129) units/L Total Protein (6.3-8.2) g/dL Albumin (3.9-5) g/dL Albumin/Globulin Ratio % Lipase (13-60) units/L HCG, Qual Negative (Negative) - Radiology Data Radiology results: report reviewed [facility] [address] [place] [address] Cat Scan Report Signed Patient: VIOLETTA SHAFER MR#: [id number] : 1975 Acct:[id number] Age/Sex: 46 / F ADM Date: 03/30/22 Loc: ED Attending Dr: Ordering Physician: DYAN YOUNG Date of Service: 03/30/22 Procedure(s): CT abdomen pelvis w con Accession Number(s): [id number] cc: DYAN YOUNG CT ABDOMEN AND PELVIS WITH CONTRAST INDICATION: upper abdoominal pain and elevated lipase. TECHNIQUE: Axial CT images were obtained through the abdomen and pelvis after IV contrast. All CT scans at this location are performed using CT dose reduction for ALARA by means of automated exposure control. COMPARISON: CT abdomen pelvis 02/22/2019 FINDINGS: LOWER CHEST: No significant abnormality. LIVER: No significant abnormality. GALLBLADDER: Absent BILE DUCTS: No significant abnormality. PANCREAS: No significant abnormality. SPLEEN: No significant abnormality. ADRENALS: No significant abnormality. RIGHT KIDNEY and URETER: No significant abnormality. LEFT KIDNEY and URETER: No significant abnormality. STOMACH and SMALL BOWEL: No significant abnormality. COLON: No significant abnormality. APPENDIX: No significant abnormality. PERITONEUM: No free fluid. No free air. No fluid collection. LYMPH NODES: No significant adenopathy. AORTA and ARTERIES: No significant abnormality. IVC and VEINS: No significant abnormality. URINARY BLADDER: No significant abnormality. REPRODUCTIVE ORGANS: No significant abnormality. ADDITIONAL FINDINGS: None. SKELETAL SYSTEM: No significant abnormality. IMPRESSION: 1. No significant abnormality. No CT evidence for pancreatitis Signer Name: Aj Dunne MD Signed: 03/30/2022 1:08 PM Workstation Name: [id number] Transcribed By: TL Dictated By: Aj Dunne MD Electronically Authenticated By: Aj Dunne MD Signed Date/Time: 03/30/22 1308 DD/ 1306 TD/TT: - Medical Decision Making This patient presents with abdominal pain of unclear etiology. Their evaluation has not identified a emergent etiology for the abdominal pain. Specifically, given the relatively benign exam, normal laboratory studies, and lack of significant risk factors, I have a very low suspicion for appendicitis, ischemic bowel, bowel perforation, or any other life threatening disease. Lipase was slightly slightly elevated CT scan was obtained did not show any acute processes no emergent processes. I have discussed with the patient the level of uncertainty with undifferentiated abdominal pain and clearly explained the need to follow-up as noted on the discharge instructions, or return to the Emergency Department immediately if the pain worsens, develops fever, persistent and uncontrollable vomiting, or for any new symptoms or concerns. I discussed with the patient that this presentation today for abdominal pain could represent a significant risk for an acute abdominal process. Although the tests in the ED were essentially normal, there is still a possibility of a process such as appendicitis, diverticulitis, cholecystitis, ulcer, early bowel obstruction, mesenteric ischemia, kidney stone, or even kidney infection which could subsequently cause disability or . The patient understands that they must return within 24 hours for a recheck or see their physician within 24 hours for re-exam due to the possibility of significant surgical or medical process. This four 6-year-old female was seen and evaluated on the March 18 was she was assessed to have a urinary tract infection and treated with Macrobid. After evaluation of that visit the urinalysis and labs were relatively benign with exception of mild hypokalemia with potassium of 3.1. Critical care attestation.: If time is entered above; I have spent that time in minutes in the direct care of this critically ill patient, excluding procedure time. ED Disposition Clinical Impression: Abdominal pain Disposition: 01 HOME / SELF CARE / HOMELESS Is pt being admited?: No Does the pt Need Aspirin: No Condition: Stable Instructions: Abdominal Pain (ED), Abdominal Pain, Adult Prescriptions: Hyoscyamine Subl [Levsin Sl 0.125 TAB] 0.125 mg SL Q6HR PRN #20 tab PRN Reason: abd pain
[2022-03-30 13:56] VITALS: BP 124/78
== END 2022-03-30 13:56 | disposition home or self-care (01) ==
LOC: ED 04:11
DX: R10.9 Unspecified abdominal pain (principal); I10 Essential (primary) hypertension; Z90.49 Acquired absence of other specified parts of digestive tract; Z86.79 Personal history of other diseases of the circulatory system
CPT/HCPCS: 36415; 74177; 80053; 83690; 84703; 85027; 99284; Q9967